=== PATIENT | female | born 1980 | race Caucasian/White ===

== ENCOUNTER → 2017-12-26 08:22 | Outpatient (CLI) | payer BC, SELFPAY ==
--- NOTE | 2017-12-26 08:25 | NM_ITS ---
CLINICAL: 37-year-old female with reported history of diffuse arthralgia. WHOLE BODY 99m Tc MDP RADIONUCLIDE BONE SCINTIGRAPHY COMPARISON: MRI of the lumbar spine report 05/06/2017 FINDINGS: Following the intravenous administration of 23.7 mCi of 99m Tc MDP, whole body bone images reveal: 1. Increased radiopharmaceutical concentration is identified in the bilateral distal femoral and proximal tibial metaphyses. 2. An increase in tracer concentration is demonstrated in the bilateral wrist articulations, left midfoot in the distribution of the third cuneiform tarsal bone, the acromioclavicular compartments of both shoulders, first lumbar vertebra posteriorly on the left, posterior midline sacrum, medial compartment of the right ankle. 3. The remaining skeletal structures are scintigraphically unremarkable with the bilateral renal images and urinary bladder activity identified. NM/Bone Scan Whole Body IMPRESSION: 1. The increase in radiopharmaceutical concentration identified in the bilateral distal femoral and proximal tibial metaphyses may be further investigated with plain film radiography if a myeloproliferative disorder is a diagnostic consideration. 2. Degenerative arthritis is otherwise expressed in the right and left wrists, left midfoot, bilateral shoulders, lumbar spine and sacrum, the right ankle articulation. 3. There is no definitive scintigraphic evidence of large articulation synovial inflammation or trauma-fracture on the current examination. Electronically Signed: Fernando Carson DO at 10:28 EDT Tel , Service support ,
== END ==
PROVIDERS: Family Provider Family Medicine; PCP Family Medicine; Visit Provider Internal Medicine Rheumatology
DX: M89.8X9 Other specified disorders of bone, unspecified site (principal)
CPT/HCPCS: 78306

== ENCOUNTER → 2017-12-27 10:24 | Outpatient (CLI) | payer BC, SELFPAY ==
[2017-12-27 12:12] LABS: Absolute Lymphocyte Count 1.94 X10^3/ul (0.83-4.51); Absolute Neutrophil Count 5.5 X10^3/uL (2.0-7.7); Basophil# 0.01 X10^3/uL; Basophil% 0.1 % (0-1); Eosinophil# 0.17 X10^3/uL; Eosinophils% 2.1 % (0-5); Hematocrit 38.2 % (37-47); Hemoglobin 11.9 g/dl (12.0-15.0); Lymphocyte # 1.94 X10^3/ul (4.0); Lymphocyte % 23.9 % (19-41); Mean Corp Hgb Conc 31.2 g/gl (32-36); Mean Corpuscular Hgb 24.8 pg (27.0-32.0); Mean Corpuscular Volume 79.7 fL (81-99); Mean Platelet Vol. 10.8 fl (6.2-12.0); Monocyte# 0.42 X10^3/uL; Monocyte% 5.2 % (0-10); Neutrophil # 5.53 X10^3/uL (2.7-7.7); Neutrophil % 68.2 % (47-70); Platelet Count 293 K/mm3 (150-450); RBC Distribution Width CV 16.2 % (11.6-14.6); Red Blood Count 4.79 M/mm3 (4.2-5.4); White Blood Count 8.1 K/mm3 (4.4-11.0)
[2017-12-27 12:13] LABS: POSITIVE COUNT NO; POSITIVE DIFFERENTIAL NO; POSITIVE MORPHOLOGY NO
[2017-12-27 12:19] LABS: Iron 37 ug/dL (50-170)
== END ==
PROVIDERS: Family Provider Family Medicine; PCP Family Medicine; Visit Provider Family Medicine
DX: D64.9 Anemia, unspecified (principal); E61.1 Iron deficiency
CPT/HCPCS: 36415; 83540; 85025

== ENCOUNTER → 2017-12-28 12:43 | Outpatient (CLI) | payer BC, SELFPAY ==
--- NOTE | 2017-12-28 12:58 | MRI_ITS ---
STUDY: MRI RIGHT HIP REASON FOR EXAM: Female, 37 years old. Pain TECHNIQUE: Standardized fat and water weighted pulse sequences were obtained in all 3 orthogonal planes. COMPARISON: X-ray 10/19/2017 FINDINGS: There is mild edema at the gluteus medius insertion (image 14, 15/28 coronal inversion recovery, 25, 26/36 axial inversion recovery). Normal hip joint without articular joint space narrowing. Normal acetabulum. Normal labrum. Normal femoral head. Normal femoral neck and intratrochanteric region. There is no trochanteric, iliopsoas or iliopectineal bursitis. Normal superior and inferior pubic rami. Normal pubic symphysis. Normal ischial tuberosity. Normal origin of the hamstring tendons. Normal visualized iliac wing, sacroiliac joint, and sacral ala. Normal visualized soft tissue structures of the pelvis. MRI/Lower Ext Joint Only (Routine) IMPRESSION: Mild insertional gluteus medius myotendinous strain Electronically Signed: Arnulfo Lambert MD at 21:53 EDT Tel , Service support ,
== END ==
PROVIDERS: Family Provider Family Medicine; PCP Family Medicine; Visit Provider Nurse Practitioner Family
DX: M25.559 Pain in unspecified hip (principal); M70.70 Other bursitis of hip, unspecified hip; M53.3 Sacrococcygeal disorders, not elsewhere classified
CPT/HCPCS: 73721

== ENCOUNTER → 2018-01-04 13:12 | Outpatient (CLI) | payer BC, SELFPAY ==
--- NOTE | 2018-01-04 13:18 | RAD_ITS ---
STUDY: X-RAY - RIGHT ELBOW REASON FOR EXAM: Female, 37 years old. Pain TECHNIQUE: 3 view(s) of the elbow. COMPARISON: None. FINDINGS: Normal visualized humerus, radius and ulna. Normal radiocapitellar and ulnotrochlear articulations. The soft tissue structures are unremarkable. A small ossific density measuring less than 2 mm noted just distal to the humerus on the oblique view only. RAD/Elbow min 3 Views IMPRESSION: No acute bony injury of the elbow. Electronically Signed: Justyn Rosas DO at 23:58 EDT Tel [phone], Service support ,
== END ==
PROVIDERS: Family Provider Family Medicine; PCP Family Medicine; Visit Provider Family Medicine
DX: M25.521 Pain in right elbow (principal)
CPT/HCPCS: 73080

== ENCOUNTER → 2018-01-30 08:54 | Outpatient (CLI) | payer BC, SELFPAY ==
--- NOTE | 2018-01-30 08:57 | RAD_ITS ---
STUDY: X-RAY - RIGHT KNEE REASON FOR EXAM: Female, 37 years old. Right knee pain TECHNIQUE: 2 view(s) of the knee. Weight bearing COMPARISON: None. FINDINGS: Normal visualized distal femur. Normal visualized proximal tibia and fibula. Normal proximal tibiofibular articulation. There is mild degenerative arthrosis of the medial femorotibial compartment. There is mild degenerative arthrosis of the lateral femorotibial compartment. There is mild degenerative arthrosis of the patellofemoral articulation. There is no demonstrated joint effusion. No significant joint space height loss The soft tissue structures are unremarkable. RAD/Knee 1 or 2 Views IMPRESSION: Mild degenerative changes Electronically Signed: Eric Carroll DO at 18:23 EDT Tel , Service support ,
--- NOTE | 2018-01-30 09:00 | RAD_ITS ---
STUDY: X-RAY - LEFT KNEE REASON FOR EXAM: Female, 37 years old. Left knee pain TECHNIQUE: 2 view(s) of the knee. Weight-bearing COMPARISON: None. FINDINGS: Normal visualized distal femur. Normal visualized proximal tibia and fibula. Normal proximal tibiofibular articulation. Normal medial femorotibial compartment. There is mild degenerative arthrosis of the lateral femorotibial compartment. There is mild degenerative arthrosis of the patellofemoral articulation. There is no demonstrated joint effusion. No significant joint space height loss The soft tissue structures are unremarkable. RAD/Knee 1 or 2 Views IMPRESSION: Mild degenerative changes Electronically Signed: Eric Carroll DO at 18:23 EDT Tel , Service support ,
== END ==
PROVIDERS: Family Provider Family Medicine; PCP Family Medicine; Visit Provider Internal Medicine Rheumatology
DX: M25.561 Pain in right knee (principal); M25.562 Pain in left knee
CPT/HCPCS: 73560

== ENCOUNTER → 2018-04-06 10:24 | Outpatient (CLI) | payer BC, SELFPAY ==
--- NOTE | 2018-04-06 10:36 | CT_ITS ---
STUDY: CT ABDOMEN AND PELVIS WITHOUT CONTRAST REASON FOR EXAM: Female, 37 years old. 2 day history of low back pain. RADIATION DOSAGE (If Supplied By Facility): CTDIvol = ( 14.80 ) mGy, DLP = ( 811.15 ) mGycm TECHNIQUE: Transaxial images were obtained from the dome of the diaphragm to the symphysis pubis without oral contrast, and without intravenous contrast. Sagittal and coronal images were reconstructed. Individualized dose optimization techniques were used for this CT. COMPARISON: Comparison is made with prior study dated January 31, 2017. FINDINGS: The visualized lung bases are unremarkable. Coronary artery calcification. Normal liver. There are surgical clips in the gallbladder fossa consistent with a prior cholecystectomy. Normal spleen. Normal pancreas. Normal bilateral adrenal glands. 2.5 mm calculus in the lower pole of the left kidney. There is moderate cortical atrophy of the left kidney, consistent with chronic medical renal disease. Normal visualized stomach. Normal small intestine. Normal colon. The appendix is visualized and appears normal. Normal abdominal aorta. Normal inferior vena cava. Normal retroperitoneum. Normal urinary bladder. There is a 3.3 cm cyst in the left ovary. The patient is status post hysterectomy. Normal abdominal wall. There are degenerative changes of the visualized lumbar spine. CT/Abdomen/Pelvis without Cont IMPRESSION: 2.5 mm calculus in the lower pole of the right kidney. Left ovarian cyst. Electronically Signed: Nile Cm MD at 11:09 EDT Tel [phone], Service support ,
== END ==
PROVIDERS: Family Provider Family Medicine; PCP Family Medicine; Visit Provider Urology
DX: N20.0 Calculus of kidney (principal); M54.5 Low back pain
CPT/HCPCS: 74176

== ENCOUNTER 2018-04-12 18:56 | Emergency (ER) | payer BC, SELFPAY ==
[2018-04-12 18:57] VITALS: BP 145/93; PULSE 100; RESP 16; TEMP 36.8; O2SAT 98; BMI 44.4
[2018-04-12] MEDS: Ondansetron ODT 4 MG Tablet 8 MG PO (19:39)
[2018-04-12] MEDS: Ketorolac 30 MG/ML Syringe IM (19:39)
--- NOTE | 2018-04-12 21:09 | ED.VISSUMM ---
- ER Visit Summary Date of Service: 04/12/18 Chief Complaint: Migraine headache and dizziness History of Present Illness: The patient is a 37 F presenting for evaluation secondary to migraine headache and sinus. Patient reports that over the course last 3 days she has been dealing with dizziness. She reports that this is associated with change in position and as a feeling that she has a spinning sensation. She denies any visual changes speech difficulty numbness or weakness. She denies any recent head injuries or fever. She denies any tinnitus or recent dental work. Patient states that she has a prior history of migraines, but has not had one for 3 years since she had her hysterectomy but seemed to develop a gradual onset 1 today. States that associated with visual auras photophobia and phonophobia. Review of systems otherwise negative. Physical Examination: Vital signs: Within normal limits General: Well-nourished well-developed no acute distress Head: Normocephalic atraumatic, no temporal artery tenderness or vesicular rash noted. No sinus tenderness to percussion. Eyes: PERRLA, EOMI. Direct funduscopy shows no evidence of hemorrhage or papilledema. There is evidence of nystagmus when the patient goes from lying to sitting upright Neck: Supple, no lymphadenopathy, no JVD no meningismus. Negative Brudzinski, Kernig, jolt, and heel strike Cardiovascular: Heart regular rate and rhythm no murmurs Respiratory: Lung sounds clear to auscultation bilaterally no respiratory distress Abdomen: Soft, nontender Extremities: Nontender, no edema Skin: Normal color, no rash, no evidence of petechia Neuro: Alert and oriented ?4, cranial nerves II through XII intact, normal strength, sensation Test Results: None indicated Emergency Department Course and Treatment: Patient presented secondary to dizziness and headache. Patient's headache was treated with Toradol and Zofran and had resolution on repeat evaluation. Patient's dizziness was treated with meclizine. This seems to be consistent with peripheral vertigo as it is very clearly positional and associated with nystagmus. Patient will be sent home with a course of meclizine and follow-up with ear nose and throat as needed. All questions were answered and patient was discharged. Disposition: Discharge Impression: 1. Migraine headache 2. BPPV This note was generated with [employer] software. It may contain incorrect words, spelling, and punctuation that were not noted in review of the chart prior to signing ED Disposition - Plan for ED Patient: Disposition: Home or Assisted Living Chief Complaint: Dizziness Diagnosis: Vertigo, Migraine Instructions: ED BPV Vertigo Prescriptions: Meclizine HCl 25 mg PO TID PRN #15 tab PRN Reason: Dizziness Referrals: Partha Morrissey MD [STAFF PHYSICIAN] - 3-5 Days if not improving
[2018-04-12] MEDS: Meclizine HCl 25 MG Tablet PO (21:10)
[2018-04-12 21:26] VITALS: BP 130/95; PULSE 71; RESP 16; O2SAT 99
== END 2018-04-12 21:28 | disposition home or self-care (01) ==
PROVIDERS: Emergency Provider Emergency Medicine; Family Provider Family Medicine; PCP Family Medicine
DX: G43.909 Migraine, unspecified, not intractable, without status migrainosus (principal); H81.10 Benign paroxysmal vertigo, unspecified ear; Z90.710 Acquired absence of both cervix and uterus; F41.9 Anxiety disorder, unspecified; D68.51 Activated protein C resistance; K21.9 Gastro-esophageal reflux disease without esophagitis
CPT/HCPCS: 96372; 99283

== ENCOUNTER → 2018-05-21 11:17 | Outpatient (CLI) | payer BC, SELFPAY ==
[2018-05-21 15:26] LABS: Absolute Lymphocyte Count 2.22 X10^3/ul (0.83-4.51); Absolute Neutrophil Count 6.3 X10^3/uL (2.0-7.7); Basophil# 0.02 X10^3/uL; Basophil% 0.2 % (0-1); Eosinophil# 0.34 X10^3/uL; Eosinophils% 3.6 % (0-5); Hemoglobin 11.8 g/dl (12.0-15.0); Lymphocyte # 2.22 X10^3/ul (4.0); Lymphocyte % 23.8 % (19-41); Mean Corp Hgb Conc 31.1 g/gl (32-36); Mean Corpuscular Hgb 25.2 pg (27.0-32.0); Monocyte# 0.41 X10^3/uL; Monocyte% 4.4 % (0-10); Neutrophil # 6.31 X10^3/uL (2.7-7.7); Neutrophil % 67.8 % (47-70); Platelet Count 299 K/mm3 (150-450); RBC Distribution Width CV 15.8 % (11.6-14.6); RBC Distribution Width SD 46.1 fl (35.1-43.9); Red Blood Count 4.69 M/mm3 (4.2-5.4); White Blood Count 9.3 K/mm3 (4.4-11.0)
[2018-05-21 15:41] LABS: POSITIVE COUNT NO; POSITIVE DIFFERENTIAL NO; POSITIVE MORPHOLOGY NO
[2018-05-21 15:52] LABS: ALB/GLOB Ratio 0.7 RATIO (0.9-2.4); AST(SGOT) 14 U/L (15-37); Alanine Aminotransfer ALT/SGPT 26 U/L (13-56); Albumin, Serum 3.1 g/dL (3.2-5.0); Alkaline Phosphatase 92 U/L (45-117); Anion Gap 8 (5-15); BUN 11 mg/dL (7-18); BUN/Creat Ratio 11.1 RATIO (10-20); Calcium,Total 8.7 mg/dL (8.5-10.1); Chloride 108 mmol/L (98-107); Creatinine, Serum 0.99 mg/dL (0.55-1.02); EST Glomerular Filtration Rate 66 mL/min (>60); Est Glom Filt Rate - Afr Amer 80 mL/min (>60); Globulin 4.5 g/dL (2.2-4.2); Glucose 88 mg/dL (74-106); Protein, Total 7.6 g/dL (6.4-8.2); Sodium Level 139 mmol/L (136-145)
== END ==
PROVIDERS: Family Provider Family Medicine; PCP Family Medicine; Visit Provider Family Medicine
DX: Z01.818 Encounter for other preprocedural examination (principal); D50.9 Iron deficiency anemia, unspecified
CPT/HCPCS: 36415; 80053; 85025

== ENCOUNTER → 2018-05-22 13:14 | Outpatient (CLI) | payer BC, SELFPAY ==
[2018-05-22 15:57] LABS: Calcium,Total 8.9 mg/dL (8.5-10.1); Potassium 3.4 mmol/L (3.5-5.1)
== END ==
PROVIDERS: Family Provider Family Medicine; PCP Family Medicine; Visit Provider Urology
DX: N20.0 Calculus of kidney (principal)
CPT/HCPCS: 36415; 82310; 84132

== ENCOUNTER 2018-06-08 08:05 | Day surgery (SDC) | payer BC, SELFPAY ==
--- NOTE | 2018-06-08 | MASS_PTH ---
PATIENT: YVES SKINNER [place] [facility] [place][id number] AGE/SX: 37/F ROOM: RE06/08/[address]: Dr. Mason Valencia DPM : 1980 BED: DIS: 06/08/2018 SPEC #: [id number] RECD: 06/08/18 14:24 STATUS: MARIELLA AMENA #: [id number] DAVID: 06/08/18 00:[address]: Mason Valencia DEPT: SURGICAL PATHOLOGY RECD BY: Gian Grajeda ENTERED: 06/08/18 14:25 SP TYPE: Mass OTHR DR: Dr. Sujey Shaikh, DO Tissues: Foot, NOS Procedures: Surgery Specimen Level III HEADER OPERATION: Tarsal tunnel decompression, excision cyst/soft tissue mass, plantar PRE-OP DIAGNOSIS: Right tarsal tunnel syndrome and plantar fascitis TISSUE SUBMITTED: Mass and debrided tissue, right tarsal tunnel MICROSCOPIC DIAGNOSIS Mass and debrided tissue, right tarsal tunnel: Fragments of fibroadipose and fibrovascular tissue with focal reactive changes. YEVGENIY:michaela 06/11/18 MICROSCOPIC DESCRIPTION Slides are reviewed. GROSS DESCRIPTION Received in fixative is one container labeled with the patient's name and designated mass and debrided tissue, right tarsal tunnel. The specimen consists of multiple irregular fragments of sanchez-yellow adipose tissue mixed with possible fragment of skin that in aggregate measure 2.5 x 2.5 x 0.2 cm. The entire specimen is submitted in one cassette. / YEVGENIY:michaela 06/08/18 TC:5 CPT: 45682
[2018-06-08 08:35] VITALS: BP 119/73; PULSE 78; RESP 16; TEMP 36.3; O2SAT 96; BMI 44.7
[2018-06-08] MEDS: Bupivacaine Mpf 0.5% 30 ML VIAL ×2 (10:16→11:39)
--- NOTE | 2018-06-08 11:47 | PCM.DC.POD ---
Discharge Diet: Light diet - advance as tolerated Discharge Activity: May Not Drive Weight Bearing Status: No weight bearing - No weightbearing right foot Keep extremity elevated above heart level: Right Leg - Keep right foot elevated for at least 50 minutes of every hour using pillows Call your doctor if your incision/area has: Continuous Slow Oozing, Sudden Increased Bleeding, Foul Smelling Discharge Call your doctor if you observe: Fever of 101 or Higher, Shortness of breath, Chest pain, Increased palpitations (irregular heartbeat), Calf discomfort, Uncontrolled pain Cleanse incision/area with: Do not get Incision Wet, Keep Dressing Clean & Dry Additional Instructions: Inject Lovenox subcutaneously daily as already prescribed. Allergies/Adverse Reactions: Allergies acetaminophen [From Midrin] Allergy (Verified 06/08/18 08:31) Chest tightness ciprofloxacin [From Cipro] Allergy (Verified 06/08/18 08:31) Hives ciprofloxacin HCl [From Cipro] Allergy (Verified 06/08/18 08:31) Hives dichloralphenazone [From Midrin] Allergy (Verified 06/08/18 08:31) Chest tightness isometheptene mucate [From Midrin] Allergy (Verified 06/08/18 08:31) Chest tightness nortriptyline [Nortriptyline] Allergy (Verified 06/08/18 08:31) Chest tightness Medications to take at Discharge Calcium Carb/Vitamin D [Caltrate-600 With Vit D Tab] 1 tab PO DAILY@0800 03/11/14 Folic Acid 0.4 mg PO DAILY@0800 14 Metformin(XR) [Glucophage Xr] 1,000 mg PO BID 03/11/14 Multivitamins,Therapeutic [Multivitamin] 1 tab PO DAILY 03/11/14 Ranitidine [Zantac] 300 mg PO BID 03/11/14 Diclofenac Epolamine [Flector] 1 patch TOPICAL PRN PRN 04/12/18 Hyoscyamine Sulfate [Hyoscyamine Sulfate ER] 1 tab PO DAILY 04/12/18 Lorazepam [Ativan] 1 tab PO DAILY PRN 04/12/18 Montelukast Sodium [Singulair] 4 mg PO DAILY 04/12/18 Pantoprazole Sodium [Protonix] 40 mg PO DAILY 04/12/18 Sertraline HCl [Zoloft] 50 mg PO DAILY 04/12/18 Topiramate [Topamax] 1 tab PO DAILY 04/12/18 ascorbic acid (vitamin C) 500 mg capsule 500 mg PO DAILY 05/14/18 mecobalamin (vitamin B12) 1,000 mcg disintegrating tablet,sublingual 1,000 mcg SUBLINGUAL QDAY 05/14/18 omega-3 fatty acids-fish oil 300 mg-1,000 mg capsule 1 cap PO BID 05/14/18 Hydrocodone/Acetaminophen [Vicodin 5-300 mg Tablet] 1 - 2 tab PO Q6H PRN PRN 3 Days #30 tab 06/08/18 The following prescriptions were given: Hydrocodone/Acetaminophen [Vicodin 5-300 mg Tablet] 1 - 2 tab PO Q6H PRN PRN 3 Days #30 tab PRN Reason: Pain Primary Care Physician: Sujey Shaikh DO [Primary Care Provider] - Test Results: Test results from this visit will be discussed in further detail at your follow-up appointment, if applicable. Please Follow Up With: Mason Valencia DPM When: within 1 week, sooner if needed
--- NOTE | 2018-06-08 11:52 | PCM.OPRPT ---
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 Onofre Blankenship Type of Anesthesia:: General, Local Specimen's removed: Mass from tarsal tunnel sent to pathology Estimated Blood Loss (mL): 20mL Description of Procedure: Indications: This is a 37 year old female who has continued pain and symptoms to the right foot. She has pain to the tarsal tunnel with numbness to the bottom of the foot. She also has plantar fascia symptoms. Pre operative MRI showed cystic mass vs varicose veins along with plantar fasciitis. This persists despite rest, activity modifications, immobilization, anti-inflammatories, changes in shoegear, and corticosteroid injection. She continues to have significant pain and symptoms. Therefore further options were discussed with her. She elected to proceed forward with surgical intervention tarsal tunnel release decompression with excision of mass, along with plantar fasciotomy. This was discussed with them in great detail, reviewed the procedures with her in detail, reviewed the rationale, possible benefits, risks/potential complications, goals, expectations, estimated healing time all in great detail. Patient expressed understanding, and elected to proceed forward with the procedures. The consent forms were reviewed with her, and this was freely signed. All of her questions were answered. No guarantees were given nor implied. Operative Procedure: The patient was brought back into the operating room and was placed on the operating room in the supine position. She was carefully secured to the operating room table in the supine position. The patient received 2 grams of IV Cefazolin for antibiotic prophylaxis. The initally received MAC anesthesia per the anesthesia team. Then a total of 30mL of 0.5% Bupivicaine was given as a local block to the tarsal tunnel and medial hindfoot after the overlying skin was cleansed with 70% isopropyl alcohol. A well padded pneumatic tourniquet was applied around the patient's right low calf. The patient's right lower extremity was scrubbed, prepped, draped in the usual aseptic fashion. A timeout was performed and the patient was properly identified and the surgical plan was confirmed. The patient's right foot/ankle was exsanguinated using an Esmarch bandage and was elevated; the right ankle pneumatic tourniquet was inflated to 250mmHg. Using a #15 scalpel blade a curvilinear incision was made overlying the tarsal tunnel. The patient had pain despite the MAC/IV sedation and local anesthesia, therefore the patient received general anesthesia per the anesthesia team. The ankle pneumatic tourniquet was deflated (was only up for 2 minutes) until general anesthesia was obtained. Once general anesthesia was obtained, the patient's right foot/ankle was again exsanguinated using an Esmarch bandage and was elevated; the right ankle pneumatic tourniquet was inflated to 250mmHg Careful dissection was completed down to the flexor retinaculum, which was identified and was released, exposing the tarsal tunnel. Careful dissection was completed down to the tibial nerve. The tibial nerve was visualized, along with its branches of the medial and lateral plantar nerves and medial calcaneal nerve, in which it was noted these branches occurred at the central to distal aspect of the tarsal tunnel. It was noted there were significant adhesions around the tibial nerve as well as to the aforementioned branches at the level of the tarsal tunnel, these were identified and carefully released. There was noted to a large varicose vein (branch off of the posterior tibial vein) impinging on the tibial nerve at the central aspect of the tarsal tunnel. This varicose was carefully cauterized and removed. There was also noted to be a soft tissue mass cyst, consistent with a ganglion cyst, deep within the tarsal tunnel. There was clear gel fluid within the cyst. The cyst was excised, it appeared to be coming from the medial subtalar joint. Also of note, at the level of the central aspect of the tarsal tunnel the tibial nerve appeared significantly enlarged, yellow with a significant amount of fatty nonviable tissue around it, the tibial nerve appeared to be quite inflamed at this level. The posterior artery and vein were coursing over the top of the tibial nerve. This were freed up, being sure not to injure the, nerve, artery, or vein. The fatty tissue around the tibial nerve and branches was very carefully and gently freed away from the tibial nerve and branched; and was removed. The underlying nerve appeared much healthier in appearance, but again did appear to be inflamed due to chronic impingement and irritation from the above. Otherwise at the level of the proximal tarsal tunnel the tibial nerve appeared to be healthy and viable. The surgical site was flushed out with copious amounts of normal saline solution. The rest of the tissues at the surgical site appeared healthy and viable. The flexor retinaculum was not reapproximated together to help prevent further impingement/entrapment of the tibial nerve and associated branches. Of note, the removed tissue (including the cyst) was all sent to pathology for further evaluation. Attention was directed to the plantar fascia. A skin incision was made to the medial hindfoot at the level of the origin of the plantar fascia on the inferior calcaneus. Careful dissection was completed down through the subcutaneous tissue layer. A plane was created superiorly and inferiorly around the plantar fascia. There was significant thickening and fibrosis of the plantar fascia consistent with plantar fasciitis. The medial 50% of the plantar fascia was released via a plantar fasciotomy. There was no noted infracalcaneal spur, confirmed using intraoperative fluoroscopy. The site was flushed out with copious amounts of normal saline solution. The pneumatic tourniquet was deflated (total time tourniquet was inflated was 57 minutes), there was immediate return of warmth and perfusion to the lower extremity. Temperature was noted, with CFT < 2 seconds to all toes. Hemostasis was achieved prior to closure. The subcutaneous tissue and skin were reapproximated using 4-0 Monocryl. An additional 10mL of local nerve block was completed around the surgical site for post operative pain control using 0.5% Bupivacaine plain to aid with post operative pain control.The skin incision edges were painted with Cavilon, and Steri-strips were applied across the sutured skin incision site of the tarsal tunnel. A dressing was applied which consisted of Betadine soaked Adaptic, 4x4 gauze, Kerlix and lucie bandage. The patient tolerated the above operative procedures well, and the anesthesia well with no complications. Post operative orders were placed. Post operative instructions were reviewed with patient as well as with her family ( and mother) who were here with her today. Patient to remain nonweightbearing to the right foot/ankle at all times, keep the right foot elevated at least 50 minutes of every hour, keep dressing/splint clean, dry and intact. A prescription for Vicodin 5mg/300mg tabs; 1-2 tabs PO q 6 hours PRN pain was given for post operative pain control (confirmed with patient she is not allergic to acetaminophen). Also the patient has been prescribed Lovenox 30mg once daily subcutaneous due to her risk of blood clot, this was reviewed with Dr. Shaikh her PCP. The patient to follow up with me in 1 week, sooner if needed. Grafts/Implants Used: None - Complications None
[2018-06-08 11:55] VITALS: BP 119/73; BP 140/67; PULSE 82; RESP 16; TEMP 36.2; O2SAT 93
[2018-06-08 12:00] VITALS: BP 119/73; BP 127/77; PULSE 82; RESP 18; O2SAT 94
[2018-06-08 12:15] VITALS: BP 119/73; BP 120/83; PULSE 94; RESP 16; O2SAT 95
[2018-06-08 12:30] VITALS: BP 119/73; BP 123/76; PULSE 89; RESP 16; TEMP 36.3; O2SAT 94
[2018-06-08 14:43] VITALS: BP 116/68; BP 119/73; PULSE 80; RESP 16; TEMP 36.1; O2SAT 100
== END 2018-06-08 14:54 | disposition home or self-care (01) ==
LOC: SDC 08:06 → AC 08:07
PROVIDERS: Family Provider Family Medicine; PCP Family Medicine; Visit Provider Podiatrist
PROC: (CPT 28008; principal; 2018-06-08 09:15)
DX: G57.51 Tarsal tunnel syndrome, right lower limb (principal); M67.471 Ganglion, right ankle and foot; M72.2 Plantar fascial fibromatosis; F41.1 Generalized anxiety disorder; D68.8 Other specified coagulation defects; K21.9 Gastro-esophageal reflux disease without esophagitis; D50.9 Iron deficiency anemia, unspecified; D68.51 Activated protein C resistance; E28.2 Polycystic ovarian syndrome; E66.9 Obesity, unspecified; Z68.42 Body mass index [BMI] 45.0-49.9, adult; Z87.442 Personal history of urinary calculi; Z87.440 Personal history of urinary (tract) infections; Z79.84 Long term (current) use of oral hypoglycemic drugs; Z79.899 Other long term (current) drug therapy
CPT/HCPCS: 28008; 28035; 28090; 88304; 88305; J7120; J2405

== ENCOUNTER 2018-08-14 10:00 | Outpatient (RCR) | payer BC, SELFPAY ==
--- NOTE | 2018-07-04 11:32 | HP.PTEVAL ---
Patient's Visit Information YEVS SKINNER is a 37 year old F referred to Physical Therapy by Mason Valencia with a diagnosis of R s/p tarsal tunnel decompression and plantar fasciotomy.. Date of Evaluation: 07/04/18 Physical Therapist: Partha Delgado, DPT, OC - Visit Plan Frequency: 1-2x /Week Duration: 4-6 Weeks Plan: PT is WBAT in boot until 07/20/18. Currently weaning crutches. Weekly progressions of gait, ROM and strength and proprioception exercises, increase frequency if not going well at home. Scar massage - Subjective Subjective: 06/08 had decompression tarsal tunnel. In soft dressing NWB R since until one week ago when she got boot and started gentle WB. Feels like she is putting 50% weight through it. Pain is minimal, to 3/10 burning intermittently with excessive WB. Sleeps well. Has children 10 adn 13 [address] yet. 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 Activities are limited due to limited WB, can't walk [employer], limited cooking and cleaning. Enjoys swimming for fitness but can't yet. Enjoys hiking with kids, riding bike. Prior to surgery had pain excruciating every step, much better now and had numbness causing her to fall. HEP: just alphabet with toe and wearing boot. - Pain R ankle/foot Pain Intensity (Out of 10): 2 Pain Intensity Range: 0, 3 - Objective Walks with one crutch L, two crutches and without crutches with boot on and obvious limited ROM due to boot eficits but all mod I. Steps are reciprocal with two rails or crutched Mod I, prefers to use L. tRASNFERS ARE i. R foot AROM is limited DF to 4 degrees, PF to 50, inv to 23, eversion to 10. L foot DF 9, PF 60, inversion 38, eversion 20. Strength R ankle 4-/5 without pain and L 4+. Metatarsals and big toe move well. Incisions are medial at ankle and heel and are dry but not completely closed yet, mod scar tissue uner medial malleoli. palpable. SLS R in boot 5 seconds and L is 30 seconds. - Goals Goal 1:: Walk without boot with normal pattern as allowed by doctor Goal Time Frame: 4-6 Weeks Goal 2:: Steps reciprocal without pain or rail Goal Time Frame: 4-6 Weeks Goal 3:: Pt feel back to 95% of all activites without pain. Goal Time Frame: 4-6 Weeks Goal 4:: I approp HEP to minimize future problems Goal Time Frame: 4-6 Weeks - Rehabilitation Potential Physical Therapy Diagnosis: s/p R ankle surgery Rehabilitation Potential: Good - Anticipated Interventions Patient/Client Instruction: Educate patient on: Condition, Plan of Care For the Purpose of:: To improve ability of physical actions for home/community/work/leisure, To improve gait and locomotor functions Therapeutic Exercise to Include: Strength training, Gait and locomotor training, Passive ROM, Active ROM For the Purpose of:: To increase ROM, To increase tolerance to activity/condition/position, To improve ability of physical actions for home/community/work/leisure, To improve gait and locomotor functions Manual Therapy Techniques to Include: Scar massage For the Purpose of:: To increase ROM Thank you for the opportunity to evaluate your patient. For Medicare and Medicare HMO plans, please review the plan of care and approve it. It will need to be FAXED BACK to us at [phone] for Medicare purposes. Please let me know if there are questions or concerns regarding this plan of care. Physician Signature: Date:
--- NOTE | 2018-07-31 10:30 | HP.PTREVAL ---
Mason Valencia, It has been my pleasure to treat YVES SKINNER over the last 5 visits for R s/p tarsal tunnel decompression and plantar fasciotomy.. Please see the progress note below for an update on the physical therapy plan of care! Subjective: To doctor on 08/09. Going good last couple days. Did wake up last night with some pain. Doing 2 hours at a time off. Pain is good llast couple days , no meds. Using GTB for exercises 3x15 easily. ^ hours out of boot. Walkede dog a block this week without difficulty a short block Objective/Function: Full aROM, incision not tender and min scar tissue. 5/5 strength B ankles, SLS B 5 seconds max. OVERALL DOING WELL Plan Plan: F/U TWO WEEKS TO D/C, CALL PRIOR IF NEEDED. Goals Goal 1:: Walk without boot with normal pattern as allowed by doctor Goal Time Frame: 4-6 Weeks Goal 2:: Steps reciprocal without pain or rail Goal Time Frame: 4-6 Weeks Goal 3:: Pt feel back to 95% of all activites without pain. Goal Time Frame: 4-6 Weeks Goal 4:: I approp HEP to minimize future problems Goal Time Frame: 4-6 Weeks Anticipated Interventions Patient/Client Instruction: Educate patient on: Condition, Plan of Care For the Purpose of:: To improve ability of physical actions for home/community/work/leisure, To improve gait and locomotor functions Therapeutic Exercise to Include: Strength training, Gait and locomotor training, Passive ROM, Active ROM For the Purpose of:: To increase ROM, To increase tolerance to activity/condition/position, To improve ability of physical actions for home/community/work/leisure, To improve gait and locomotor functions Manual Therapy Techniques to Include: Scar massage For the Purpose of:: To increase ROM Please do not hesitate to contact me at [phone] by phone or if you have questions or concerns regarding this new plan of care! Sincerely, Partha Delgado, DPT, OC
--- NOTE | 2018-08-14 10:22 | HP.PTDCSUM ---
HP - PT D/C Summary It has been my pleasure to treat YVES SKINNER under orders from Mason Valencia, for the diagnosis of R s/p tarsal tunnel decompression and plantar fasciotomy. for a total of 6 visit(s). Discharge Date: 08/14/18 Please see the following information for a summary of their discharge status. - Subjective Subjective: Back and knee hurt. Foot is doing well. Out of boot for about a week. Used in in afternoon for work one time but wrapping the ankle worked better. Walking a mile without much difficulty aftrrwards. Has small spot on incision that throbs at times. To Dr. Valencia today. Sleeping OK. Walks dog without problems. Work is normal. - Pain R ankle/foot Pain Intensity (Out of 10): 0 - Overall Improvement % Improvement: 90 - Objective Objective/Function: Full aROM withpout pain R ankle. 8 DF, 38 inv, 28 eversion. 5/5 strength R ankle all 4 motions. Walks wella dn steps normal except R knee pain. DOING EXCEELENT AND READY TO BE DONE WITH PT - Goals Goal 1:: Walk without boot with normal pattern as allowed by doctor Goal Progress: Goal Met Goal 2:: Steps reciprocal without pain or rail Goal Progress: Goal Met Goal 3:: Pt feel back to 95% of all activites without pain. Goal Progress: Progressing Goal 4:: I approp HEP to minimize future problems Goal Progress: Goal Met - Plan Plan: D/C, pt to start back on water exercise in community. - D/C Information Discharge Comments: Doing well. If there are questions or concerns regarding this patient's physical therapy, please feel free to call me at [phone]. Thank you for the referral of this patient. Sincerely, Partha Delgado, DPT, OC
== END 2018-08-14 19:00 | disposition home or self-care (01) ==
LOC: PT 10:00
PROVIDERS: Family Provider Family Medicine; PCP Family Medicine; Referring Provider Podiatrist; Visit Provider Podiatrist
DX: Z98.890 Other specified postprocedural states (principal)
CPT/HCPCS: 97110; 97162; 97530

== ENCOUNTER → 2018-09-05 14:45 | Outpatient (CLI) | payer BC, SELFPAY ==
[2018-09-05 17:33] LABS: Absolute Lymphocyte Count 2.23 X10^3/ul (0.83-4.51); Absolute Neutrophil Count 6.3 X10^3/uL (2.0-7.7); Basophil# 0.01 X10^3/uL; Basophil% 0.1 % (0-1); Eosinophil# 0.21 X10^3/uL; Eosinophils% 2.3 % (0-5); Hemoglobin 11.9 g/dl (12.0-15.0); Lymphocyte # 2.23 X10^3/ul (4.0); Lymphocyte % 24.2 % (19-41); Mean Corp Hgb Conc 31.3 g/gl (32-36); Mean Corpuscular Hgb 24.5 pg (27.0-32.0); Mean Corpuscular Volume 78.2 fL (81-99); Mean Platelet Vol. 10.3 fl (6.2-12.0); Monocyte# 0.43 X10^3/uL; Monocyte% 4.7 % (0-10); Neutrophil # 6.28 X10^3/uL (2.7-7.7); Neutrophil % 68.3 % (47-70); Platelet Count 311 K/mm3 (150-450); RBC Distribution Width CV 15.6 % (11.6-14.6); RBC Distribution Width SD 44.6 fl (35.1-43.9); Red Blood Count 4.86 M/mm3 (4.2-5.4); White Blood Count 9.2 K/mm3 (4.4-11.0)
[2018-09-05 17:41] LABS: POSITIVE COUNT NO; POSITIVE DIFFERENTIAL NO; POSITIVE MORPHOLOGY NO
[2018-09-05 17:44] LABS: ALB/GLOB Ratio 0.7 RATIO (0.9-2.4); AST(SGOT) 15 U/L (15-37); Alanine Aminotransfer ALT/SGPT 29 U/L (13-56); Albumin, Serum 3.3 g/dL (3.2-5.0); Alkaline Phosphatase 122 U/L (45-117); Anion Gap 9 (5-15); BUN 13 mg/dL (7-18); BUN/Creat Ratio 11.6 RATIO (10-20); Calcium,Total 8.5 mg/dL (8.5-10.1); Chloride 108 mmol/L (98-107); Creatinine, Serum 1.12 mg/dL (0.55-1.02); EST Glomerular Filtration Rate 57 mL/min (>60); Est Glom Filt Rate - Afr Amer 69 mL/min (>60); Ferritin 31 ng/mL (8-252); Globulin 4.5 g/dL (2.2-4.2); Glucose 115 mg/dL (74-106); Hemoglobin A1c 5.8 % (4.2-6.3); Iron 25 ug/dL (50-170); Potassium 3.6 mmol/L (3.5-5.1); Protein, Total 7.8 g/dL (6.4-8.2); Sodium Level 139 mmol/L (136-145)
[2018-09-05 17:48] LABS: Vitamin B12 1346 pg/mL (211-911); Vitamin D,25 Hydroxy 25.5 ng/mL (29.95-100.01)
== END ==
PROVIDERS: Family Provider Family Medicine; PCP Family Medicine; Visit Provider Family Medicine
DX: R53.83 Other fatigue (principal); D50.9 Iron deficiency anemia, unspecified; E53.8 Deficiency of other specified B group vitamins; E74.39 Other disorders of intestinal carbohydrate absorption; Z51.81 Encounter for therapeutic drug level monitoring
CPT/HCPCS: 36415; 80053; 82306; 82607; 82728; 83036; 83540; 85025

== ENCOUNTER → 2018-09-12 10:12 | Outpatient (CLI) | payer BC, SELFPAY ==
--- NOTE | 2018-09-12 10:14 | BI_ITS ---
MAMMOGRAPHY - BILATERAL SCREENING REASON FOR EXAM: Female, 38 years old. Routine annual screening examination. PERTINENT HISTORY: Aunt with breast cancer. TECHNIQUE: Digital bilateral breast perri (3D mammographic acquisition) in the CC and MLO projections. 2-D mediolateral oblique (MLO) and craniocaudad (CC) views of both breasts were obtained. CAD: Full Field Digital Mammography with Computer Added Detection was performed. COMPARISON: Comparison is made with prior outside examination dated July 10, 2013 and March 17, 2011. FINDINGS: Breast Composition: There are scattered areas of fibroglandular density. There are no dominant masses or suspicious calcifications. No other significant abnormalities are identified. There has been no significant change since the prior study. BI/SCREENING MAMM (CAD), BILAT IMPRESSION: Stable bilateral screening mammogram. Yearly follow-up mammogram recommended. (A) ASSESSMENT CATEGORY: BIRADS Category 1: Negative. A letter regarding these results will be sent to the patient by the facility within 30 days. Approximately 10% of breast cancers are not detected by mammography. A normal mammogram should not delay biopsy of a clinically suspicious abnormality. [id number] Electronically Signed: Nile Cm MD at 12:02 EST Tel [phone], Service support ,
== END ==
PROVIDERS: Family Provider Family Medicine; PCP Family Medicine; Visit Provider Obstetrics & Gynecology
DX: Z12.31 Encounter for screening mammogram for malignant neoplasm of breast (principal)
CPT/HCPCS: 77063; 77067

== ENCOUNTER → 2018-11-14 11:18 | Outpatient (CLI) | payer BC, SELFPAY ==
[2018-11-14 15:57] LABS: Anion Gap 8 (5-15); BUN 13 mg/dL (7-18); BUN/Creat Ratio 12.5 RATIO (10-20); Calcium,Total 8.6 mg/dL (8.5-10.1); Chloride 109 mmol/L (98-107); Creatinine, Serum 1.04 mg/dL (0.55-1.02); EST Glomerular Filtration Rate 62 mL/min (>60); Est Glom Filt Rate - Afr Amer 75 mL/min (>60); Ferritin 44 ng/mL (8-252); Glucose 79 mg/dL (74-106); Iron 26 ug/dL (50-170); Sodium Level 139 mmol/L (136-145)
[2018-11-14 16:13] LABS: Absolute Lymphocyte Count 1.88 X10^3/ul (0.83-4.51); Absolute Neutrophil Count 4.7 X10^3/uL (2.0-7.7); Basophil# 0.03 X10^3/uL; Basophil% 0.4 % (0-1); Eosinophil# 0.23 X10^3/uL; Eosinophils% 3.1 % (0-5); Hematocrit 39.7 % (37-47); Hemoglobin 12.5 g/dl (12.0-15.0); Lymphocyte # 1.88 X10^3/ul (4.0); Mean Corp Hgb Conc 31.5 g/gl (32-36); Mean Corpuscular Hgb 24.8 pg (27.0-32.0); Mean Corpuscular Volume 78.6 fL (81-99); Mean Platelet Vol. 11.8 fl (6.2-12.0); Monocyte# 0.59 X10^3/uL; Monocyte% 7.9 % (0-10); Neutrophil # 4.74 X10^3/uL (2.7-7.7); Neutrophil % 63.1 % (47-70); Platelet Count 306 K/mm3 (150-450); RBC Distribution Width CV 17.1 % (11.6-14.6); RBC Distribution Width SD 47.8 fl (35.1-43.9); Red Blood Count 5.05 M/mm3 (4.2-5.4); White Blood Count 7.5 K/mm3 (4.4-11.0)
[2018-11-14 16:14] LABS: POSITIVE COUNT NO; POSITIVE DIFFERENTIAL NO; POSITIVE MORPHOLOGY NO
== END ==
PROVIDERS: Family Provider Family Medicine; PCP Family Medicine; Visit Provider Family Medicine
DX: D50.9 Iron deficiency anemia, unspecified (principal); Z51.81 Encounter for therapeutic drug level monitoring
CPT/HCPCS: 36415; 80048; 82728; 83540; 85025

== ENCOUNTER → 2019-01-07 | Outpatient (CLI) | payer BC, SELFPAY ==
[2019-01-07 17:37] LABS: Absolute Lymphocyte Count 2.46 X10^3/ul (0.83-4.51); Absolute Neutrophil Count 8.4 X10^3/uL (2.0-7.7); Basophil# 0.03 X10^3/uL; Basophil% 0.3 % (0-1); Eosinophil# 0.19 X10^3/uL; Eosinophils% 1.6 % (0-5); Hematocrit 37.1 % (37-47); Hemoglobin 11.7 g/dl (12.0-15.0); Immature Platelet Fraction 2.8 % (1.0-7.9); Lymphocyte # 2.46 X10^3/ul (4.0); Lymphocyte % 21.2 % (19-41); Mean Corp Hgb Conc 31.5 g/gl (32-36); Mean Corpuscular Hgb 25.2 pg (27.0-32.0); Mean Corpuscular Volume 79.8 fL (81-99); Mean Platelet Vol. 10.4 fl (6.2-12.0); Monocyte# 0.57 X10^3/uL; Monocyte% 4.9 % (0-10); Neutrophil # 8.36 X10^3/uL (2.7-7.7); Neutrophil % 71.8 % (47-70); Platelet Count 295 K/mm3 (150-450); RBC Distribution Width CV 16.2 % (11.6-14.6); RET-HE 25.7 pg (30-35); Red Blood Count 4.65 M/mm3 (4.2-5.4); Reticulocyte Count 1.81 % (0.5-1.5); White Blood Count 11.6 K/mm3 (4.4-11.0)
[2019-01-07 17:41] LABS: POSITIVE COUNT NO; POSITIVE DIFFERENTIAL NO; POSITIVE MORPHOLOGY NO
[2019-01-07 17:54] LABS: Ferritin 26 ng/mL (8-252); Iron 24 ug/dL (50-170); LDH 162 U/L (84-246)
[2019-01-10 15:52] LABS: EBV Acute VCA IgM < 36.0 U/mL (0.0-35.9); EBV Early Antigen IgG 51.2 U/mL (0.0-8.9); EBV Nuclear Antigen IgG < 18.0 U/mL (0.0-17.9)
== END | disposition home or self-care (01) ==
LOC: BFHLAB 16:10
PROVIDERS: Family Provider Family Medicine; PCP Family Medicine; Visit Provider Family Medicine
DX: D50.9 Iron deficiency anemia, unspecified (principal); R53.83 Other fatigue; R59.1 Generalized enlarged lymph nodes
CPT/HCPCS: 36415; 82728; 83540; 83615; 85025; 85045; 86663; 86664; 86665

== ENCOUNTER → 2019-01-08 13:16 | Outpatient (CLI) | payer BC, SELFPAY ==
--- NOTE | 2019-01-08 13:19 | CT_ITS ---
HISTORY: LEFT SIDED ABD PAIN, SPLENOMEGALYHX OF DANIELLE, BRONWYN EXAMINATION: CT Abdomen And Pelvis W/ Contrast TECHNIQUE: Helically acquired images were obtained of the abdomen and pelvis following IV contrast. A radiation dose optimization technique was used for this scan. IV Contrast dosage and agent: 100ML Isovue 370 Oral contrast: Yes. COMPARISON: 04/06/18 CT abdomen and pelvis. FINDINGS: LOWER CHEST: Lung bases are clear. No cardiomegaly or pericardial effusion observed. LIVER: Homogeneous. No focal mass. GALLBLADDER AND BILIARY TREE: Status post cholecystectomy No intra- or extrahepatic biliary ductal dilation. KIDNEYS AND URETERS: No hydronephrosis or acute renal abnormality. No ureteral dilation. As before, the right kidney is prominent in size and the left is atrophic with cortical thinning and scarring. Small cortical calcification versus nonobstructing stone lower pole left kidney unchanged. The lower pole stone seen in the right kidney on the previous study is not evident today. ADRENAL GLANDS: Non-enlarged. SPLEEN: Mildly prominent in size, unchanged. No focal lesions. PANCREAS: No focal cystic or solid mass. BOWEL: Appendix not identified. No evidence of appendicitis No stomach or bowel distension. No focal inflammatory change observed. Small duodenal diverticulum, noninflamed. LYMPH NODES: No enlarged mesenteric or retroperitoneal lymph nodes. PERITONEUM: No ascites or free air. No other fluid collection. VESSELS: Aorta is non-dilated. URINARY BLADDER: Unremarkable. REPRODUCTIVE ORGANS: Status post hysterectomy. Normal bilateral ovaries including a 2.7 cm physiologic right ovarian cyst. ABDOMINAL WALL: No discrete abdominal or pelvic wall hernia observed. BONES: No acute findings. Prominent L1-2 disc degeneration and again demonstrated. CT/Abdomen/Pelvis WITH Contrast IMPRESSION: No acute findings. Individualized dose optimization techniques were used for this CT. at 0236 Reported and signed by: Clarence Moss MD Electronically Signed: Clarence Moss, at 2:35 EDT Tel , Service support ,
== END ==
PROVIDERS: Family Provider Family Medicine; PCP Family Medicine; Referring Provider Family Medicine; Visit Provider Family Medicine
DX: R10.812 Left upper quadrant abdominal tenderness (principal); R10.814 Left lower quadrant abdominal tenderness; D64.9 Anemia, unspecified; R16.1 Splenomegaly, not elsewhere classified
CPT/HCPCS: 74177; Q9967

== ENCOUNTER → 2019-01-21 13:17 | Outpatient (CLI) | payer BC, SELFPAY ==
[2019-01-21 14:07] VITALS: BP 119/74; PULSE 78; RESP 16; TEMP 36.5; O2SAT 99; BMI 44.4
== END ==
PROVIDERS: Family Provider Family Medicine; PCP Family Medicine; Referring Provider Family Medicine; Visit Provider Family Medicine
DX: D50.9 Iron deficiency anemia, unspecified (principal)
CPT/HCPCS: 96365; J1756; J7050; A4216

== ENCOUNTER → 2019-01-28 13:07 | Outpatient (CLI) | payer BC, SELFPAY ==
[2019-01-21 14:07] VITALS: BMI 44.4
[2019-01-28 13:21] VITALS: BP 118/66; PULSE 88; RESP 18; TEMP 37.1; O2SAT 97; BMI 44.4
== END ==
PROVIDERS: Family Provider Family Medicine; PCP Family Medicine; Referring Provider Family Medicine; Visit Provider Family Medicine
DX: D50.9 Iron deficiency anemia, unspecified (principal)
CPT/HCPCS: 96365; J1756; A4216

== ENCOUNTER → 2019-02-04 15:18 | Outpatient (CLI) | payer BC, SELFPAY ==
[2019-01-28 13:21] VITALS: BMI 44.4
[2019-02-04 15:54] VITALS: BP 108/66; PULSE 83; RESP 16; TEMP 37.2; O2SAT 100; BMI 44.1
== END ==
PROVIDERS: Family Provider Family Medicine; PCP Family Medicine; Referring Provider Family Medicine; Visit Provider Family Medicine
DX: D50.9 Iron deficiency anemia, unspecified (principal)
CPT/HCPCS: 96365; J1756; J7050; A4216

== ENCOUNTER → 2019-02-13 13:02 | Outpatient (CLI) | payer BC, SELFPAY ==
[2019-02-04 15:54] VITALS: BMI 44.1
[2019-02-13 13:29] VITALS: BP 111/61; PULSE 83; RESP 16; TEMP 36.5; O2SAT 100; BMI 44.1
== END ==
PROVIDERS: Family Provider Family Medicine; PCP Family Medicine; Referring Provider Family Medicine; Visit Provider Family Medicine
DX: D50.9 Iron deficiency anemia, unspecified (principal)
CPT/HCPCS: 96365; J1756; J7050; A4216

== ENCOUNTER → 2019-02-22 12:52 | Outpatient (CLI) | payer BC, SELFPAY ==
[2019-02-13 13:29] VITALS: BMI 44.1
[2019-02-22 13:09] VITALS: BP 109/62; PULSE 87; RESP 14; TEMP 37; O2SAT 98; BMI 44.1
== END ==
PROVIDERS: Family Provider Family Medicine; PCP Family Medicine; Referring Provider Family Medicine; Visit Provider Family Medicine
DX: D50.9 Iron deficiency anemia, unspecified (principal)
CPT/HCPCS: 96365; J1756; J7050; A4216

== ENCOUNTER → 2019-05-18 08:00 | Outpatient (CLI) | payer BC, SELFPAY ==
[2019-02-22 13:09] VITALS: BMI 44.1
--- NOTE | 2019-05-18 08:11 | MRI_ITS ---
STUDY: MRI RIGHT ANKLE WITHOUT CONTRAST REASON FOR EXAM: Female, 38 years old. Pain. TECHNIQUE: Standardized fat and water weighted pulse sequences were obtained in all 3 orthogonal planes. COMPARISON: None. FINDINGS: Normal subcutis adipose space. Normal posterior tibialis tendon. Normal flexor digitorum longus tendon. Normal flexor hallucis longus tendon. Normal peroneus longus and brevis tendons. Normal tibialis anterior tendon. Normal extensor hallucis longus tendon. Normal extensor digitorum longus tendons. Normal Achilles tendon and teno-osseous insertion. There is thickening of the proximal plantar fascia. Normal plantar calcaneal tubercles. Normal intrinsic muscles of the rearfoot. Normal distal tibiofibular syndesmotic ligamentous complex. Normal lateral ligamentous complex. Normal subtalar ligaments and sinus tarsi. There is spurring and fragmentation of the medial malleolus. There is thickening and chronic sprain of the anterior tibiotalar ligament. Normal plantar calcaneonavicular (spring) ligament. Joint effusion of the tibiotalar articulation. There is osteochondral edema and cystic change of the tibial plafond. Normal talar dome. Arthrosis at the medial aspect of the subtalar articulations. There is spurring and cystic change and edema of the talus and calcaneus, series 8 images 15/36 and 16/36 . Normal talonavicular articulation. Normal calcaneocuboid articulation. Normal navicular-cuneiform articulations. 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 Chronic medial sprain and/or impingement. Electronically Signed: Fadi Killian MD at 11:03 EDT , Service support ,
== END ==
PROVIDERS: Family Provider Family Medicine; PCP Family Medicine; Referring Provider Podiatrist; Visit Provider Podiatrist
DX: G57.51 Tarsal tunnel syndrome, right lower limb (principal)
CPT/HCPCS: 73721

== ENCOUNTER 2019-05-19 11:35 | Emergency (ER) | payer BC, SELFPAY ==
[2019-02-22 13:09] VITALS: BMI 44.1
[2019-05-19 11:37] VITALS: BP 135/73; PULSE 88; RESP 17; TEMP 37.1; O2SAT 95; BMI 45.4
[2019-05-19 12:11] LABS: Absolute Lymphocyte Count 2.05 X10^3/uL (0.83-4.51); Absolute Neutrophil Count 7.3 X10^3/uL (2.0-7.7); Basophil# 0.02 X10^3/uL; Basophil% 0.2 % (0-1); Eosinophil# 0.19 X10^3/uL; Eosinophils% 1.9 % (0-5); Hematocrit 41.4 % (37-47); Hemoglobin 13.7 g/dL (12.0-15.0); Lymphocyte # 2.05 X10^3/ul (4.0); Lymphocyte % 20.2 % (19-41); Mean Corp Hgb Conc 33.1 g/dL (32-36); Mean Corpuscular Hgb 27.7 pg (27.0-32.0); Mean Corpuscular Volume 83.8 fL (81-99); Mean Platelet Vol. 10.2 fl (6.2-12.0); Monocyte# 0.53 X10^3/uL; Monocyte% 5.2 % (0-10); NRBC Flagged by Analyzer 0 % (0-5); Neutrophil # 7.28 X10^3/uL (2.7-7.7); Neutrophil % 71.7 % (47-70); Platelet Count 253 K/mm3 (150-450); RBC Distribution Width CV 14.7 % (11.6-14.6); RBC Distribution Width SD 44.8 fl (35.1-43.9); Red Blood Count 4.94 M/mm3 (4.2-5.4); White Blood Count 10.2 K/mm3 (4.4-11.0)
[2019-05-19 12:21] LABS: Anion Gap 7 (5-15); BUN 12 mg/dL (7-18); BUN/Creat Ratio 12.4 RATIO (10-20); Calcium,Total 8.6 mg/dL (8.5-10.1); Chloride 109 mmol/L (98-107); Creatinine, Serum 0.97 mg/dL (0.55-1.02); EST Glomerular Filtration Rate 67 mL/min (>60); Est Glom Filt Rate - Afr Amer 81 mL/min (>60); Estimated Creatinine Clearance 77.77 ml/min; Glucose 89 mg/dL (74-106); Potassium 3.7 mmol/L (3.5-5.1); Sodium Level 140 mmol/L (136-145)
[2019-05-19 12:35] LABS: Mucous, Urine 0 SEEN /hpf (<or=2+); Red Blood Cells-Urine 0 SEEN /hpf (0-5); White Blood Cells 0 SEEN /hpf (0-5)
[2019-05-19 12:36] LABS: Color, Urine Yellow (Yellow); Glucose, Dipstick Normal (Normal); Ketone-Dipstick Negative (Negative); Leukocyte Esterase-Dipstick 25 /ul (Negative); Nitrite-Dipstick Negative (Negative); Occult Blood-Urine Negative /ul (Negative); Protein-Dipstick 15 mg/dl (Negative); Urine Bilirubin Dipstick Negative (Negative); Urine Clarity Clear (Clear); Urine Urobilinogen Normal (Normal); Urine pH 6.5 (5.0 - 8.0)
[2019-05-19 12:36] LABS: Internal QC Validated? YES +Cl - CLEAR BKGD; Pregnancy, Serum, hCG Quali. NEGATIVE Negative
[2019-05-19 12:42] LABS: Bacteria 1+ /hpf (None Seen); Squamous Epithelial Cells - UA 0-5 SEEN /hpf (5-10)
--- NOTE | 2019-05-19 12:44 | ED.DCSUM_ITS ---
History of Present Illness Chief Complaint: Abd Pain Informant: Patient Onset: Days Narrative: Patient presents to the ED with upper abdominal pain that she states it wraps around to her back that started several days ago. She does report associated nausea and states this morning she did vomit. She did take a Phenergan which was prescribed by her PCP. Several weeks ago, she was started on Trulicity by her PCP for her PCOS. She states that he took her dose yesterday, however symptoms started prior to this. The medication is making her nauseous and that is why her PCP prescribed her Phenergan. She does have a history of cholecystectomy. She denies any urinary symptoms or changes in bowel movements. Past Medical History - Allergies and Home Meds Allergies/Adverse Reactions: Allergies acetaminophen [From Midrin] Allergy (Verified 05/19/19 11:37) Chest tightness buspirone [From BuSpar] Allergy (Verified 05/19/19 11:37) Chest tightness ciprofloxacin [From Cipro] Allergy (Verified 05/19/19 11:37) Hives ciprofloxacin HCl [From Cipro] Allergy (Verified 05/19/19 11:37) Hives dichloralphenazone [From Midrin] Allergy (Verified 05/19/19 11:37) Chest tightness isometheptene mucate [From Midrin] Allergy (Verified 05/19/19 11:37) Chest tightness nortriptyline [Nortriptyline] Allergy (Verified 05/19/19 11:37) Chest tightness Primary Care Physician: Sujey Shaikh DO [Primary Care Provider] - Surgical History: - - tubal ligation, widom teeth, x 2, carpal tunnel Smoking Status: Never smoker Review of Systems General: Denies: Chills, Fever, Sweats Eyes: Denies: Visual changes - bilaterally, Diplopia ENT: Denies: Rhinorrhea, Sore throat Cardiovascular: Denies: Chest pain, Palpitations Respiratory: Denies: Dyspnea, Cough, Dyspnea on exertion Gastrointestinal: Reports: Abdominal pain - Right upper quadrant, Nausea, Vomiting. Denies: Diarrhea, Melena, Hematochezia Genitourinary: Reports: -. Denies: Hematuria, Frequency Musculoskeletal: Denies: Back pain, Extremity Pain Skin: Denies: Rash, Wounds Neurological: Denies: Headache, Weakness, Numbness Physical Exam Vital Signs/Narrative: Vital Signs Temp Pulse Resp BP Pulse Ox 05/19/19 11:37 98.7 F 88 17 135/73 H 95 Inital Vital Signs reviewed: Yes General: Well nourished, Well developed, No Acute Distress Head: Normocephalic, Atraumatic Eyes: Perrl, EOMI ENT: Moist mucous membranes, No rhinorrhea Neck: Supple, Nontender Cardiovascular: Regular rate, Regular rhythm, No murmurs Respiratory: No distress, CTA bilaterally, Chest nontender, Chest tenderness, - - Right lower anterior ribs Abdomen: Soft, Nondistended, Normal bowel sounds, Tender - Right upper quadrant. Negative for: Guarding, Rebound tenderness Back: Nontender, Normal Inspection Extremities: Nontender, No edema Skin: Normal color, No rash Neurological: Alert, Oriented x3, Cranial nerves II-XII grossly intact, Normal Strength, Normal Sensation Psychological: Normal affect, Normal Mood Diagnostic/Tx/Re-eval - Medical Decision Making Patient presents to the ED with upper abdominal pain that started several days ago and is progressively worsening. She reports associated nausea and vomiting. She is tender in the upper abdominal region, right upper quadrant greater than left upper quadrant. No guarding or rigidity on physical exam. Patient was given IV fluids, Zofran, and morphine for symptomatic relief. Laboratory booker dies are unremarkable. Patient was also given a GI cocktail. I discussed with her that at this time it is unclear what is the cause of her symptoms. She will continue her PPI and H2 meng at home. She was advised to contact her PCP tomorrow to arrange follow-up. She is educated on signs/symptoms to return to the ED. She is provided discharge instructions. She is agreeable to plan. Impression: Upper abdominal pain, unknown etiology. Nausea and vomiting. Disposition: Home stable ED Disposition - Plan for ED Patient: Disposition: Home or Assisted Living Diagnosis: Abdominal pain Instructions: ABDOMINAL PAIN, Unknown Cause, (Female) Referrals: Sujey Shaikh DO [Primary Care Provider] - Additional Instructions: Follow up with your primary care provider if symptoms persist or worsen.
[2019-05-19 12:59] LABS: AST(SGOT) 10 U/L (15-37); Alanine Aminotransfer ALT/SGPT 19 U/L (13-56); Albumin, Serum 3.1 g/dL (3.2-5.0); Alkaline Phosphatase 110 U/L (45-117); Bilirubin, Direct 0.11 mg/dL (0.00-0.30); Globulin 4.2 g/dL (2.2-4.2); Protein, Total 7.3 g/dL (6.4-8.2)
[2019-05-19] MEDS: Morphine 4 MG/ML Syringe IV (13:06)
[2019-05-19] MEDS: 0.9% Normal Saline 1,000 ML 1000 ML IV (13:06)
[2019-05-19] MEDS: Ondansetron 4 MG/2 ML Vial IV (13:06)
[2019-05-19 13:51] LABS: Lipase 111 U/L (73-393)
[2019-05-19] MEDS: Mag Hydrox/Al Hydrox/Simeth 30 ML UDC PO (14:00)
[2019-05-19 14:03] VITALS: BP 116/78
[2019-05-19 14:17] VITALS: BP 116/78; PULSE 84; RESP 18
== END 2019-05-19 14:22 | disposition home or self-care (01) ==
PROVIDERS: Emergency Provider Physician Assistant; Family Provider Family Medicine; PCP Family Medicine
DX: R10.10 Upper abdominal pain, unspecified (principal); R11.2 Nausea with vomiting, unspecified; Z88.1 Allergy status to other antibiotic agents; E28.2 Polycystic ovarian syndrome; Z90.49 Acquired absence of other specified parts of digestive tract
CPT/HCPCS: 80048; 80076; 81001; 83690; 84703; 85025; 96361; 96374; 96375; 99285; J7030; A4216; J2405

== ENCOUNTER → 2019-09-24 10:36 | Outpatient (CLI) | payer BC, SELFPAY ==
[2019-08-08 11:11] VITALS: BMI 45.4
--- NOTE | 2019-09-24 10:37 | BI_ITS ---
MAMMOGRAPHY - BILATERAL SCREENING 3-D TOMOSYNTHESIS REASON FOR EXAM: Female, 39 years old. FAM HX OF PAT AUNT 33 NO SX -- PAST U/S DONE BECAUSE OF BILAT DISCHARGE QUIT IN 2013 AFTER HYSTER AND REMOVAL OF IUD PERTINENT HISTORY: Positive family history as described above. TECHNIQUE: 2-D mammograms and 3-D Tomosynthesis of the breast (s) were performed. CAD was performed. COMPARISON: 09/12/2018, 03/17/2011 FINDINGS: The breast composition is composed of scattered fibroglandular density. Scattered benign calcifications are seen. No dense spiculated masses or suspicious microcalcifications are identified. No architectural distortion is identified. There is no skin thickening or retraction. There has been no significant change since the prior study. BI/SCREEN MAMM (CAD) W/TERESITA BILAT IMPRESSION: No mammographic signs of malignancy. Routine yearly mammograms recommended. ASSESSMENT CATEGORY: BIRADS Category 2: Benign. A letter regarding these results will be sent to the patient by the facility within 30 days. FOLLOW UP RECOMMENDATION: Yearly follow up mammogram recommended. (A) Approximately 10% of breast cancers are not detected by mammography. A normal mammogram should not delay biopsy of a clinically suspicious abnormality. Electronically Signed: Sammy Pelletier MD at 15:25 EST Tel [phone], Service support ,
== END ==
PROVIDERS: Family Provider Family Medicine; PCP Family Medicine; Referring Provider Obstetrics & Gynecology; Visit Provider Obstetrics & Gynecology
DX: Z12.31 Encounter for screening mammogram for malignant neoplasm of breast (principal)
CPT/HCPCS: 77063; 77067

== ENCOUNTER → 2020-08-25 08:23 | Outpatient (CLI) | payer BC, SELFPAY ==
[2019-08-08 11:11] VITALS: BMI 45.4
--- NOTE | 2020-08-25 08:30 | RAD_ITS ---
STUDY: X-RAY - LEFT ANKLE REASON FOR EXAM: Left ankle pain and swelling since yesterday, no specific injury. TECHNIQUE: 3 view(s) of the ankle. COMPARISON: None. FINDINGS: Normal visualized distal tibia and fibula. Normal medial and lateral malleoli. There is a small radiolucency in the lateral aspect of the talar dome on the oblique view. Normal visualized talus and calcaneus. There is an os trigonum. The visualized subtalar, talonavicular, calcaneocuboid and tarsal articulations are normal. There is soft tissue swelling. RAD/Ankle min 3 Views IMPRESSION: Small osteochondral lesion of the lateral talar dome. Soft tissue swelling. Electronically Signed: Chiki Joyner MD at 11:21 EST Tel , Service support ,
== END ==
PROVIDERS: PCP Family Medicine; Referring Provider Family Medicine; Visit Provider Family Medicine
DX: M25.572 Pain in left ankle and joints of left foot (principal)
CPT/HCPCS: 73610

== ENCOUNTER → 2020-09-28 08:23 | Outpatient (CLI) | payer BC, SELFPAY ==
[2019-08-08 11:11] VITALS: BMI 45.4
--- NOTE | 2020-09-28 08:24 | BI_ITS ---
MAMMOGRAPHY - BILATERAL SCREENING REASON FOR EXAM: Female, 40 years old. Routine annual screening examination. PERTINENT HISTORY: PT PAT AUNT AGE 33 HAD BREAST CA PT HAD FIRST CHILD AT AGE 25 NO SX PAST U/S DONE BECAUSE OF BILAT DISCHARGE- PT NO LONGER HAVING DISCHARGE- QUIT IN 2013 AFTER HYSTERECTOMY AND REMOVAL OF IUD TECHNIQUE: Digital bilateral breast teresita (3D mammographic acquisition) in the CC and MLO projections. 2-D mediolateral oblique (MLO) and craniocaudad (CC) views of both breasts were obtained. CAD: Full Field Digital Mammography with Computer Added Detection was performed. COMPARISON: 09/24/2019 and 09/12/2018 FINDINGS: Breast Composition: The breasts are almost entirely fatty. There are no dominant masses or suspicious calcifications. No other significant abnormalities are identified. BI/SCREEN MAMM (CAD) W/TERESITA BILAT IMPRESSION: Stable bilateral screening mammogram. Yearly follow-up mammogram recommended. (A) ASSESSMENT CATEGORY: BIRADS Category 2: Benign. A letter regarding these results will be sent to the patient by the facility within 30 days. Approximately 10% of breast cancers are not detected by mammography. A normal mammogram should not delay biopsy of a clinically suspicious abnormality. [id number] Electronically Signed: Cornell Mckeon, at 8:19 EST Tel , Service support ,
== END ==
PROVIDERS: PCP Family Medicine; Referring Provider Obstetrics & Gynecology; Visit Provider Obstetrics & Gynecology
DX: Z12.31 Encounter for screening mammogram for malignant neoplasm of breast (principal); Z80.3 Family history of malignant neoplasm of breast
CPT/HCPCS: 77063; 77067

== ENCOUNTER → 2020-09-30 15:56 | Outpatient (CLI) | payer BC, SELFPAY ==
[2019-08-08 11:11] VITALS: BMI 45.4
[2020-09-30 16:51] LABS: Absolute Lymphocyte Count 2.25 X10^3/uL (0.83-4.51); Absolute Neutrophil Count 7.9 X10^3/uL (2.0-7.7); Basophil# 0.04 X10^3/uL; Basophil% 0.4 % (0-1); Eosinophils% 1.8 % (0-5); Hematocrit 44.2 % (37-47); Hemoglobin 13.9 g/dL (12.0-15.0); Lymphocyte # 2.25 X10^3/ul (4.0); Lymphocyte % 20.3 % (19-41); Mean Corp Hgb Conc 31.4 g/dL (32-36); Mean Corpuscular Volume 85.8 fL (81-99); Monocyte# 0.59 X10^3/uL; Monocyte% 5.3 % (0-10); NRBC Flagged by Analyzer 0 % (0-5); Neutrophil # 7.92 X10^3/uL (2.7-7.7); Neutrophil % 71.5 % (47-70); Platelet Count 290 K/mm3 (150-450); RBC Distribution Width CV 14.8 % (11.6-14.6); RBC Distribution Width SD 46.5 fl (35.1-43.9); Red Blood Count 5.15 M/mm3 (4.2-5.4); White Blood Count 11.1 K/mm3 (4.4-11.0)
[2020-09-30 17:02] LABS: Erythrocyte Sedimentation Rate 62 mm/hr (0-20)
[2020-09-30 17:24] LABS: Hemoglobin A1c 5.5 % (3.8-5.6)
[2020-09-30 18:05] LABS: ALB/GLOB Ratio 0.8 RATIO (0.9-2.4); AST(SGOT) 18 U/L (15-37); Alanine Aminotransfer ALT/SGPT 34 U/L (13-56); Albumin, Serum 3.3 g/dL (3.2-5.0); Alkaline Phosphatase 108 U/L (45-117); Anion Gap 6 (5-15); BUN 14 mg/dL (7-18); BUN/Creat Ratio 13.3 RATIO (10-20); Calcium,Total 8.8 mg/dL (8.5-10.1); Chloride 108 mmol/L (98-107); Creatinine, Serum 1.05 mg/dL (0.55-1.02); EST Glomerular Filtration Rate 61 mL/min (>60); Est Glom Filt Rate - Afr Amer 74 mL/min (>60); Ferritin 142 ng/mL (8-252); Globulin 4.4 g/dL (2.2-4.2); Glucose 102 mg/dL (74-106); Iron 39 ug/dL (50-170); Potassium 3.8 mmol/L (3.5-5.1); Protein, Total 7.7 g/dL (6.4-8.2); Sodium Level 138 mmol/L (136-145)
== END ==
PROVIDERS: PCP Family Medicine; Visit Provider Family Medicine
DX: D50.9 Iron deficiency anemia, unspecified (principal); Z51.81 Encounter for therapeutic drug level monitoring; M25.50 Pain in unspecified joint; E74.39 Other disorders of intestinal carbohydrate absorption
CPT/HCPCS: 36415; 80053; 82728; 83036; 83540; 85025; 85652; 86140

== ENCOUNTER → 2020-10-27 10:00 | Outpatient (CLI) | payer BC, SELFPAY ==
[2019-08-08 11:11] VITALS: BMI 45.4
--- NOTE | 2020-10-27 10:03 | VDLE_ITS ---
Reason For Study: venous insufficiency RIGHT LEFT CFV is compressible, spontaneous, phasic, CFV is compressible, spontaneous, phasic, competent and demonstrates normal competent, and demonstrates normal augmentation. augmentation. FV is compressible, spontaneous, phasic, FV is compressible, spontaneous, phasic, competent and demonstrates normal competent and demonstrates normal augmentation. augmentation. POP V is compressible, spontaneous, phasic, POP V is compressible, spontaneous, phasic, competent and demonstrates normal competent and demonstrates normal augmentation. augmentation. T/P Trunk is compressible. T/P Trunk is compressible. PTV is compressible. PTV is compressible. RT PerV is compressible. LT PerV is compressible. SFJ is competent and measures .61 cm. SFJ is competent and measures .35 cm. GSV proximal thigh measures .48 x .55 cm. GSV proximal thigh measures .56 x .65 cm. GSV at knee measures .38 x .4 cm. GSV at knee measures .47 x .45 cm. GSV above knee is competent. GSV INCOMPETENT throughout for greater than GSV below knee is INCOMPETENT for greater 0.5 seconds. than 0.5 seconds. SSV proximal calf is competent and SSV proximal calf is competent and measures .32 x .34 cm. measures .2 x .21 cm. Large bulging vein in medial foot with normal Procedure venous flow. Vein is an extension of the GSV. This is a venous duplex using B-mode, color flow and spectral Doppler. The exam was diagnostic. Interpretation Summary Deep veins of the lower extremities are bilaterally patent and compressible segmentally. There is no evidence of deep vein thrombosis on either side. Valvular competence appears intact within the proximal deep venous systems bilaterally. The great saphenous veins appear bilaterally patent and compressible segmentally. Sapheno-femoral junctions are bilaterally competent . The right great saphenous vein appears competent above the knee. The right great saphenous vein appears incompetent below the knee. The left great saphenous vein appears segmentally incompetent. Small saphenous veins are patent and competent bilaterally. A large varicosity is noted in the left medial foot, which is patent and is an extension of the left great saphenous vein. Ordering Physician: Mason Valencia Performed By: John Palma RVT
== END ==
PROVIDERS: PCP Family Medicine; Referring Provider Podiatrist; Visit Provider Podiatrist
DX: I87.2 Venous insufficiency (chronic) (peripheral) (principal)
CPT/HCPCS: 93970

== ENCOUNTER → 2020-11-06 16:21 | Outpatient (CLI) | payer BC, SELFPAY ==
[2020-11-06 15:12] VITALS: BMI 47.3
== END ==
PROVIDERS: PCP Family Medicine; Referring Provider Obstetrics & Gynecology; Visit Provider Obstetrics & Gynecology
DX: N89.8 Other specified noninflammatory disorders of vagina (principal)
CPT/HCPCS: 87070; 87205

== ENCOUNTER → 2020-12-14 08:42 | Outpatient (CLI) | payer BC, SELFPAY ==
[2020-11-06 15:12] VITALS: BMI 47.3
[2020-12-14 12:39] LABS: Absolute Neutrophil Count 5.8 X10^3/uL (2.0-7.7); Basophil# 0.04 X10^3/uL; Basophil% 0.5 % (0-1); Eosinophil# 0.21 X10^3/uL; Eosinophils% 2.6 % (0-5); Hematocrit 43.5 % (37-47); Hemoglobin 13.5 g/dL (12.0-15.0); Lymphocyte % 20.8 % (19-41); Mean Corpuscular Hgb 26.6 pg (27.0-32.0); Mean Corpuscular Volume 85.8 fL (81-99); Mean Platelet Vol. 11.4 fl (6.2-12.0); Monocyte# 0.42 X10^3/uL; Monocyte% 5.1 % (0-10); NRBC Flagged by Analyzer 0 % (0-5); Neutrophil # 5.76 X10^3/uL (2.7-7.7); Neutrophil % 70.6 % (47-70); Platelet Count 250 K/mm3 (150-450); RBC Distribution Width CV 15.3 % (11.6-14.6); RBC Distribution Width SD 47.4 fl (35.1-43.9); Red Blood Count 5.07 M/mm3 (4.2-5.4); White Blood Count 8.2 K/mm3 (4.4-11.0)
[2020-12-14 12:59] LABS: ALB/GLOB Ratio 0.8 RATIO (0.9-2.4); AST(SGOT) 20 U/L (15-37); Alanine Aminotransfer ALT/SGPT 35 U/L (13-56); Albumin, Serum 3.4 g/dL (3.2-5.0); Alkaline Phosphatase 105 U/L (45-117); Anion Gap 5 (5-15); BUN 13 mg/dL (7-18); BUN/Creat Ratio 11.8 RATIO (10-20); Calcium,Total 9.3 mg/dL (8.5-10.1); Chloride 107 mmol/L (98-107); EST Glomerular Filtration Rate 58 mL/min (>60); Est Glom Filt Rate - Afr Amer 70 mL/min (>60); Globulin 4.2 g/dL (2.2-4.2); Glucose 100 mg/dL (74-106); Potassium 4.1 mmol/L (3.5-5.1); Protein, Total 7.6 g/dL (6.4-8.2); Sodium Level 138 mmol/L (136-145)
== END ==
PROVIDERS: PCP Family Medicine; Visit Provider Family Medicine
DX: Z01.818 Encounter for other preprocedural examination (principal)
CPT/HCPCS: 36415; 80053; 85025

== ENCOUNTER 2021-01-08 10:28 | Day surgery (SDC) | payer BC, SELFPAY ==
[2020-11-06 15:12] VITALS: BMI 47.3
[2021-01-08 10:57] VITALS: BP 119/78; PULSE 16; RESP 16; TEMP 36.1; O2SAT 100; BMI 48.3
[2021-01-08] MEDS: Lactated Ringers 1,000 ML 100 ML IV (11:03)
--- NOTE | 2021-01-08 12:00 | CYST_PTH ---
PATIENT: YVES SKINNER [place] [facility] [place] U[place][id number] AGE/SX: 40/F ROOM: RE01/08/[address]: Dr. Mason Valencia DPM : 1980 BED: DIS: 01/08/2021 SPEC #: [id number] RECD: 01/11/21 10:00 STATUS: MARIELLA REOzzy #: [id number] DAVID: 01/08/21 12:[address]: Mason Valencia DEPT: SURGICAL PATHOLOGY RECD BY: Mary Gonsales ENTERED: 01/11/21 13:01 SP TYPE: Cyst OTHR DR: Dr. Sujey Shaikh DO Tissues: A - CYST B - CYST Procedures: Decalcification bone/plaque Surgery Specimen Level IV HEADER OPERATION: Foot tarsal tunnel decompression with excision of cyst PRE-OP DIAGNOSIS: Tarsal tunnel syndrome, ganglion cyst, os trigonum syndrome, plantar fasciitis TISSUE SUBMITTED: A - Os trigonum left ankle, B - Left ankle cyst fluid and tissue from tarsal tunnel MICROSCOPIC DIAGNOSIS A. Os trigonum, left ankle, excision: Osseocartilaginous tissue with reactive and reparative change consistent with os trigonum. B. Cyst and tissue of left ankle, excision: Consistent with benign cyst with associated fibrosis and minimal chronic inflammation. AM:michaela 01/13/2021 MICROSCOPIC DESCRIPTION Slides are reviewed. GROSS DESCRIPTION A - Received in fixative is one container labeled with the patient's name and designated os trigonum left ankle. The specimen consists of a piece of bone with attached soft tissue measuring 2 x 1 x 0.6 cm. The specimen will be serially sectioned and submitted entirely in one cassette after decalcification. B - Received in fixative is one container labeled with the patient's name and designated left ankle cyst fluid and tissue from tarsal tunnel. The specimen consists of multiple irregular fragments of sanchez soft tissue that in aggregate measure 3 x 2.5 x 0.3 cm. A few of the fragments appear to consist of cyst wall also mixed with multiple fragments of mucoid material. The entire specimen is submitted in one cassette. / SJ:michaela 01/11/21 TC:5 CPT: 98135 x2, 12756
--- NOTE | 2021-01-08 13:15 | RAD_ITS ---
STUDY: X-RAY - LEFT FOOT CLINICAL: Female, 40 years old. PAIN TECHNIQUE: 3 view(s) of the foot. COMPARISON: 08/25/2020 FINDINGS: 59 seconds of fluoroscopy of the foot was utilized and operating room and 3 images suspended for interpretation.. RAD/Foot 2 Views IMPRESSION: Fluoroscopy during surgery. Electronically Signed: Fernando Dean MD at 10:54 EDT Tel , Service support ,
[2021-01-08] MEDS: Bupivacaine Mpf 0.5% 30 ML VIAL ×2 (15:07→16:11)
--- NOTE | 2021-01-08 16:27 | DCINST_ITS ---
Discharge Diet: Light diet - advance as tolerated Discharge Activity: May Not Drive, Use Walker, Use Crutches Weight Bearing Status: No weight bearing - No weightbearing left foot. Keep extremity elevated above heart level: Left Leg - Keep left foot elevated using pillows with pressure off of heel. Keep left foot elevated for at least 50 minutes of every hour. Call your doctor if your incision/area has: Continuous Slow Oozing, Sudden Increased Bleeding, Foul Smelling Discharge Call your doctor if you observe: Fever of 101 or Higher, Shortness of breath, Chest pain, Calf discomfort, Uncontrolled pain Cleanse incision/area with: Do not get Incision Wet, Keep Dressing Clean & Dry Allergies/Adverse Reactions: Allergies acetaminophen [From Midrin] Allergy (Verified 01/08/21 10:35) Chest tightness buspirone [From BuSpar] Allergy (Verified 01/08/21 10:35) Chest tightness ciprofloxacin [From Cipro] Allergy (Verified 01/08/21 10:35) Hives ciprofloxacin HCl [From Cipro] Allergy (Verified 01/08/21 10:35) Hives dichloralphenazone [From Midrin] Allergy (Verified 01/08/21 10:35) Chest tightness isometheptene mucate [From Midrin] Allergy (Verified 01/08/21 10:35) Chest tightness nortriptyline [Nortriptyline] Allergy (Verified 01/08/21 10:35) Chest tightness Medications to take at Discharge Calcium Carb/Vitamin D [Caltrate-600 With Vit D Tab] 1 tab PO DAILY@0803/11/14 Folic Acid 0.4 mg PO DAILY@0803/11/14 Multivitamins,Therapeutic [Multivitamin] 1 tab PO DAILY 03/11/14 Diclofenac Epolamine [Flector] 1 patch TOPICAL PRN PRN 04/12/18 Lorazepam [Ativan] 1 tab PO DAILY PRN 04/12/18 Montelukast Sodium [Singulair] 4 mg PO DAILY 04/12/18 Pantoprazole Sodium [Protonix] 40 mg PO DAILY 04/12/18 Sertraline HCl [Zoloft] 200 mg PO DAILY 04/12/18 Topiramate [Topamax] 50 mg PO DAILY 04/12/18 magnesium oxide 500 mg capsule 500 mg PO DAILY 11/06/20 vitamin B complex 1 cap PO DAILY 11/06/20 Albuterol IH (ProAir) [Proair Hfa (SP)Vent Pts] 1 - 2 puff INHALATION Q6H PRN PRN 12/25/20 Hydrocodone/Acetaminophen [Vicodin 5-300 mg Tablet] 1 - 2 tablet PO Q6H PRN PRN 3 Days #30 tablet 01/08/21 The following prescriptions were given: Hydrocodone/Acetaminophen [Vicodin 5-300 mg Tablet] 1 - 2 tablet PO Q6H PRN PRN 3 Days #30 tablet PRN Reason: Pain Score 4-10 Prescription Printed Orders to be completed after discharge: COVID 19 AG RAPID (RN COLLECT) Time Frame: 12/31/20, Facility: [facility], Location: Laboratory Primary Care Physician: Sujey Shaikh DO [Primary Care Provider] - Test Results: Test results from this visit will be discussed in further detail at your follow- up appointment, if applicable. Please Follow Up With: Mason Valencia DPM - Call Dr. Valencia over weekend if needed. Page: [facility] Physician's Registry: [phone]; When: Next week as scheduled, sooner if needed.
[2021-01-08 16:30] VITALS: BP 108/70; BP 119/78; PULSE 60; RESP 16; TEMP 35.7; O2SAT 100
--- NOTE | 2021-01-08 16:30 | PCM.OPRPT ---
Report of Operation Date of Procedure: 01/08/21 - Surgeon: Dr. Mason Valencia Pre-Operative Diagnosis: Tarsal tunnel syndrome, left foot/ankle. Cyst left medial hindfoot/ankle. Plantar fasciitis, left foot. 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 Yolanda Whalen Type of Anesthesia:: General, Local Specimen's removed: Exicised os trigonum from left foot/ankle sent to pathology. Cyst and excised tissue from left tarsal tunnel sent to pathology Estimated Blood Loss (mL): 40mL Description of Procedure: Indications: This is a 40 year old female who has continued pain and symptoms to the left foot. She has pain to the tarsal tunnel with numbness to the bottom of the foot. She also has plantar fascia symptoms, and os trigonum syndrome. Pre operative MRI showed cystic mass and varicose vein to the tarsal tunnel, also os trigonum syndrome. She also has subsequently developed plantar fasciitis symptoms. This persists despite rest, activity modifications, immobilization, anti-inflammatories, changes in shoegear, changes in shoes, and corticosteroid injection. She continues to have significant pain and symptoms. Therefore further options were discussed with her. She elected to proceed forward with surgical intervention. This was discussed with them in great detail, reviewed the procedures with her in detail, reviewed the rationale, possible benefits, risks/potential complications, goals, expectations, estimated healing time all in great detail. Patient expressed understanding, and elected to proceed forward with the procedures. The consent forms were reviewed with her, and this was freely signed. All of her questions were answered. No guarantees were given nor implied. Operative Procedure: The patient was brought back into the operating room. A time out was performed and the patient was properly identified and the surgical plan was confirmed. The patient received 2 grams of IV Ancef for antibiotic prophylaxis. The patient received general anesthesia per the anesthesiologist. A well padded pneumatic tourniquet was applied around the patient's left thigh. The patient was placed on the operating room table in the prone position with all areas well padded. She was carefully secured to the operating room table with a safety belt around the waist. The left foot and ankle were scrubbed, prepped, draped in the usual aseptic fashion. The patient's left foot/ankle was exsanguinated using an Esmarch bandage and was elevated; the thigh pneumatic tourniquet was inflated to 350mmHg. Left os trigonum excision: Attention was directed to the left hindfoot. Intra operative fluoroscopy confirmed os trigonum impingement. A skin incision was made just lateral to the Achilles tendon. Careful dissection was completed through the subcutaneous tissue layer, down to the os trigonum and posterior subtalar joint. The os trigonum was identified. It was impinging the posterior subtalar joint and ankle joint. There was scar tissue adhesions present to the site. The os trigonum was carefully dissected out and excised, along with the scar tissue, releasing the adhesions. This was sent to pathology as specimen. The posterior subtalar joint was visualized and there was some wearing way of the cartilage on the very most posterior aspect consistent with chronic os trigonum syndrome impingement, otherwise cartilage was healthy and viable with good normal range of motion. Proper resection of the os trigonum was confirmed with intra operative fluoroscopy, images were saved. The surgical site was stable and remaining tissues were healthy and viable. The site was flushed out with copious amounts of normal saline solution. The subcutaneous tissue was reapproximated using 3-0 Vicryl. The skin was reapproximated using 4-0 Monocryl. A temporary dressing of gauze and Coban was applied. The pneumatic tourniquet was deflated at 30 minutes, there was immediately return of warmth and perfusion to the foot and ankle with CFT < 2 seconds to all toes. The patient was carefully repositioned in the supine position. The left foot and ankle were again scrubbed, prepped, draped in the usual aseptic fashion. The patient's left foot/ankle was exsanguinated using an Esmarch bandage and was elevated; the thigh pneumatic tourniquet was inflated to 350mmHg. Left tarsal tunnel decompression: Using a #15 scalpel blade a curvilinear incision was made overlying the tarsal tunnel. Careful dissection was completed down to the flexor retinaculum, which was identified and was released, exposing the tarsal tunnel. Careful dissection was completed down to the tibial nerve. The tibial nerve was visualized, along with its branches of the medial and lateral plantar nerves and medial calcaneal nerve, in which it was noted these branches occurred at the central to distal aspect of the tarsal tunnel. It was noted there were significant adhesions around the tibial nerve as well as to the aforementioned branches at the level of the tarsal tunnel, these were identified and carefully released. There was noted to be a large soft tissue mass cyst, consistent with a ganglion or synovial cyst, deep within the tarsal tunnel and wrapped around the tibial nerve. There was clear gel fluid within the cyst. The cyst was carefully freed from the tibial nerve, and it was excised, it appeared to be coming from the medial subtalar joint. There was noted to a large varicose vein impinging on the tibial nerve at the central aspect of the tarsal tunnel, which was carefully tied off using Vicryl ties and was cauterized and removed. Also of note, at the level of the central aspect of the tarsal tunnel the tibial nerve appeared significantly enlarged, yellow with a significant amount of fatty nonviable tissue around it, the tibial nerve appeared to be quite inflamed at this level. The posterior artery and vein were coursing over the top of the tibial nerve. This were freed up, being sure not to injure this neurovascular bundle. The surgical site was flushed out with copious amounts of normal saline solution. The rest of the tissues at the surgical site appeared healthy and viable. The flexor retinaculum was not reapproximated together to help prevent further impingement/entrapment of the tibial nerve and associated branches. Of note, the removed tissue (including the cyst) was all sent to pathology for further evaluation. The subcutaneous tissue was reapproximated using 3-0 Vicryl and skin reapproximated using 4-0 Monocryl. Left plantar fasciotomy: Attention was directed to the plantar fascia. A skin incision was made to the medial hindfoot at the level of the origin of the plantar fascia on the inferior calcaneus. Careful dissection was completed down through the subcutaneous tissue layer. A plane was created superiorly and inferiorly around the plantar fascia. There was significant thickening and fibrosis of the plantar fascia consistent with plantar fasciitis. The medial 50% of the plantar fascia was released via a plantar fasciotomy. There was no noted infracalcaneal spur, confirmed using intraoperative fluoroscopy. The site was flushed out with copious amounts of normal saline solution. The skin was reapproximated using 4-0 Nylon. An additional 10mL of local nerve block was completed around the surgical site for post operative pain control using 0.5% Bupivacaine plain to aid with post operative pain control.The skin incision edges were painted with Cavilon, and Steri-strips were applied across the sutured skin incision site of the tarsal tunnel. The pneumatic tourniquet was deflated at 90 minutes, there was immediate return of warmth and perfusion to the lower extremity. Temperature was noted, with CFT < 2 seconds to all toes. A dressing was applied which consisted of Betadine soaked Adaptic, 4x4 gauze, Kerlix and lucie bandage. All vital structures were properly identified and protected as necessary throughout the above procedure. The patient tolerated the above operative procedures well, and the anesthesia well with no complications. Post operative orders were placed. Post operative instructions were reviewed with patient as well as with her family () who was here with her today. Patient to remain nonweightbearing to the left foot/ankle at all times, keep the foot elevated at least 50 minutes of every hour, keep dressing/splint clean, dry and intact. A prescription for Vicodin 5mg/300mg tabs; 1-2 tabs PO q 6 hours PRN pain was given for post operative pain control (confirmed with patient she is not allergic to acetaminophen). Also the patient has been prescribed Lovenox 40mg once daily subcutaneous due to her risk of blood clot. The patient to follow up with me in 1 week, sooner if needed. Grafts/Implants Used: None - Complications None
--- NOTE | 2021-01-08 16:35 | RAD_ITS ---
STUDY: X-RAY - LEFT FOOT CLINICAL: Female, 40 years old. post op TECHNIQUE: 3 view(s) of the foot. COMPARISON: 08/25/2020 FINDINGS: Normal talus, calcaneus, and tarsal bones. Interval removal of the os trigonum. Normal visualized subtalar, talonavicular, calcaneocuboid, tarsal and tarsometatarsal articulations. Normal metatarsi. Normal metatarsophalangeal joint of the great toe. Normal tibial and fibular sesamoid bones. Normal interphalangeal joint of the great toe. Normal phalanges of the great toe. Normal second through fifth metatarsophalangeal joints. Normal interphalangeal joints and phalanges of the lesser toes. The soft tissue structures are unremarkable. RAD/Foot min 3 Views IMPRESSION: Normal x-ray examination of the foot. Interval removal os trigonum. Electronically Signed: Fernando Dean MD at 7:53 EDT Tel , Service support ,
[2021-01-08 16:45] VITALS: BP 119/70; BP 119/78; PULSE 61; RESP 16; O2SAT 100
[2021-01-08 17:00] VITALS: BP 101/63; BP 119/78; PULSE 60; RESP 16; O2SAT 95
[2021-01-08 17:11] VITALS: BP 101/66; BP 119/78; PULSE 60; RESP 16; TEMP 35.9; O2SAT 93
[2021-01-08 17:52] VITALS: BP 116/67; BP 119/78; PULSE 64; RESP 16; TEMP 36.1; O2SAT 94
== END 2021-01-08 18:02 | disposition home or self-care (01) ==
LOC: SDC 10:29 → AC 10:30
PROVIDERS: PCP Family Medicine; Referring Provider Podiatrist; Visit Provider Podiatrist
PROC: (CPT 28008; principal; 2021-01-08 11:45)
DX: G57.52 Tarsal tunnel syndrome, left lower limb (principal); M25.872 Other specified joint disorders, left ankle and foot; M72.2 Plantar fascial fibromatosis; Q68.8 Other specified congenital musculoskeletal deformities; D68.51 Activated protein C resistance; F41.1 Generalized anxiety disorder; K21.9 Gastro-esophageal reflux disease without esophagitis; D50.9 Iron deficiency anemia, unspecified
CPT/HCPCS: 01470; 27630; 28008; 28035; 73620; 73630; 76000; 88304; 88305; 88311; J7120; J2405

== ENCOUNTER → 2021-06-10 14:33 | Outpatient (CLI) | payer BC, SELFPAY | PROVIDERS: PCP Family Medicine; Visit Provider Family Medicine | DX: Z20.828 Contact with and (suspected) exposure to other viral communicable diseases (principal) | CPT/HCPCS: 87635; U0005; U0003 ==

== ENCOUNTER → 2021-06-30 14:49 | Outpatient (CLI) | payer BC, SELFPAY ==
--- NOTE | 2021-06-30 15:06 | VDUE_ITS ---
Reason For Study: SWELLING Left Proximal Left jugular vein is spontaneous, widely patent, phasic, with no intraluminal echogenicity noted. Left subclavian vein is spontaneous, widely patent, phasic, with no intraluminal echogenicity noted. Left Arm Left axillary vein is spontaneous, patent, phasic, competent, compressible and demonstrates augmentation. Left brachial vein is compressible. Left cephalic vein is compressible. Left basilic vein is compressible. Left Lower Arm Left radial vein is compressible. Left ulnar vein is compressible. VL/Venous Duplex US, Unilateral Interpretation Summary Deep veins of the left upper extremity are patent and compressible segmentally. There is no evidence of deep vein thrombosis. The superficial veins of the left upper extremity, the basilic and cephalic veins, are patent and compressible. There is no evidence of left upper extremit y superficial thrombophlebitis involving the veins imaged. Ordering Physician: Sujey Shaikh Referring Physician: Sujey Shaikh Performed By: Noreen Barraza, RDCS, RVT ?
[2021-06-30 17:02] LABS: ALB/GLOB Ratio 0.7 RATIO (0.9-2.4); AST(SGOT) 16 U/L (15-37); Alanine Aminotransfer ALT/SGPT 31 U/L (13-56); Albumin, Serum 2.9 g/dL (3.2-5.0); Alkaline Phosphatase 89 U/L (45-117); Anion Gap 6 (5-15); BUN 11 mg/dL (7-18); BUN/Creat Ratio 10.3 RATIO (10-20); Calcium,Total 8.8 mg/dL (8.5-10.1); Chloride 109 mmol/L (98-107); Creatinine, Serum 1.07 mg/dL (0.55-1.02); EST Glomerular Filtration Rate 60 mL/min (>60); Est Glom Filt Rate - Afr Amer 72 mL/min (>60); Free T3 2.6 pg/mL (2.18-3.98); Globulin 4.3 g/dL (2.2-4.2); Glucose 121 mg/dL (74-106); Potassium 3.5 mmol/L (3.5-5.1); Protein, Total 7.2 g/dL (6.4-8.2); Sodium Level 138 mmol/L (136-145); T4 Free Direct 0.98 ng/dL (0.76-1.46)
[2021-06-30 17:04] LABS: Absolute Lymphocyte Count 2.22 X10^3/uL (0.83-4.51); Absolute Neutrophil Count 6.9 X10^3/uL (2.0-7.7); Basophil# 0.02 X10^3/uL; Basophil% 0.2 % (0-1); Eosinophil# 0.15 X10^3/uL; Eosinophils% 1.5 % (0-5); Hematocrit 41.6 % (37-47); Hemoglobin 13.1 g/dL (12.0-15.0); Lymphocyte # 2.22 X10^3/ul (0.83-4.51); Lymphocyte % 22.6 % (19-41); Mean Corp Hgb Conc 31.5 g/dL (32-36); Mean Corpuscular Hgb 27.4 pg (27.0-32.0); Monocyte# 0.48 X10^3/uL; Monocyte% 4.9 % (0-10); NRBC Flagged by Analyzer 0 % (0-5); Neutrophil % 70.1 % (47-70); Platelet Count 267 K/mm3 (150-450); RBC Distribution Width CV 14.4 % (11.6-14.6); RBC Distribution Width SD 45.6 fl (35.1-43.9); Red Blood Count 4.78 M/mm3 (4.2-5.4); White Blood Count 9.8 K/mm3 (4.4-11.0)
[2021-06-30 17:15] LABS: D-Dimer Quantitative (DVT/PE) 0.57 FEU/ug/m (0.27-0.49)
[2021-06-30 17:19] LABS: Erythrocyte Sedimentation Rate 61 mm/hr (0-30)
== END ==
PROVIDERS: PCP Family Medicine; Referring Provider Family Medicine; Visit Provider Family Medicine
DX: R60.9 Edema, unspecified (principal); M79.602 Pain in left arm; E03.9 Hypothyroidism, unspecified; R53.83 Other fatigue; D50.9 Iron deficiency anemia, unspecified; Z51.81 Encounter for therapeutic drug level monitoring
CPT/HCPCS: 36415; 80053; 84439; 84443; 84481; 85025; 85379; 85652; 86140; 93971

== ENCOUNTER → 2021-07-19 07:54 | Outpatient (CLI) | payer BC, SELFPAY ==
--- NOTE | 2021-07-19 07:56 | ECHOD_ITS ---
Reason For Study: Edema Procedure This was a 2D Doppler, Color Flow transthoracic echocardiogram. Exam performed in department. Left Ventricle Normal LV size. Left ventricular systolic function is normal. The estimated ejection fraction is 60 %. Normal diastology for age. No regional wall motion abnormalities noted. Right Ventricle Normal RV size. Normal systolic function. Atria Normal left atrium. Normal right atrium. Mitral Valve Normal mitral valve. Tricuspid Valve Normal tricuspid valve. Mild tricuspid valve insufficiency. Pulmonary artery systolic pressure is 25 mmHg. Aortic Valve Trisinus/trileaflet aortic valve. Pulmonic Valve Normal pulmonic valve. Great Vessels Normal aortic root. The pulmonary artery is normal size. Normal inferior vena cava. Pericardium/Pleural No pericardial effusion. MMode/2D Measurements & Calculations LVIDd: 5.1 cm IVSd: 0.94 cm Ao root diam: 2.7 cm LVIDs: 3.1 cm LVPWd: 0.92 cm RVDd: 3.2 cm FS: 39.6 % LAV(MOD-bp): 38.9 ml LVAd ap4: 24.7 cm2 SV(MOD-sp4): 43.5 ml LAV(MOD-bp) Indexed: 16.2 ml/m2 LVLd ap4: 7.0 cm LAV(MOD-sp2): 33.3 ml EDV(MOD-sp4): 70.0 ml LAV(MOD-sp4): 43.4 ml EDV(sp4-el): 73.5 ml LVAs ap4: 13.5 cm2 LVLs ap4: 5.7 cm ESV(MOD-sp4): 26.6 ml ESV(sp4-el): 27.1 ml EF(MOD-sp4): 62.1 % EF(sp4-el): 63.2 % SV(sp4-el): 46.4 ml LA A4 area: 16.5 cm2 LA dimension(2D): 4.3 cm RA A4 area: 13.1 cm2 Doppler Measurements & Calculations MV E max liban: 79.4 cm/sec Lat Peak E' Liban: 12.3 cm/sec Med Peak E' Liban: 6.6 cm/sec MV A max liban: 54.8 cm/sec E/E' lat: 6.4 E/E' med: 12.0 MV E/A: 1.4 Ao V2 max: 127.8 cm/sec LV V1 max: 101.0 cm/sec PA V2 max: 108.8 cm/sec Ao max P.5 mmHg LV V1 max P.1 mmHg Ao V2 mean: 89.4 cm/sec Ao mean P.5 mmHg Ao V2 VTI: 26.1 cm TR max liban: 231.5 cm/sec TR max P.4 mmHg ECHO/Echo Complete Interpretation Summary Normal LV size. Left ventricular systolic function is normal. The estimated ejection fraction is 60 %. Structurally normal valves. Ordering Physician: Sujey Shaikh Referring Physician: Sujey Shaikh Performed By: Shani Clark, SKY, RVT
== END ==
PROVIDERS: PCP Family Medicine; Referring Provider Family Medicine; Visit Provider Family Medicine
DX: R06.00 Dyspnea, unspecified (principal); R60.9 Edema, unspecified
CPT/HCPCS: 93306

== ENCOUNTER 2021-09-06 14:54 | Emergency (ER) | payer BC, SELFPAY ==
[2021-09-06 14:55] VITALS: BP 140/84; PULSE 90; RESP 18; TEMP 35.8; O2SAT 97; BMI 45.3
--- NOTE | 2021-09-06 15:00 | VDLE_ITS ---
Reason For Study: PAIN Procedure LEFT Exam performed portable in ED. GSV is normal. The exam was abbreviated due to the COVID 19 CFV is compressible, spontaneous, phasic, protocol. competent, and demonstrates normal The study was technically difficult. augmentation. A preliminary report was called and/or faxed FV is compressible, spontaneous, phasic, to ED. competent and demonstrates normal augmentation. POP V is compressible, spontaneous, phasic, competent and demonstrates normal augmentation. T/P Trunk is compressible. PTV is compressible. LT PerV is compressible. VL/Venous Duplex US, Unilateral Interpretation Summary There is no evidence of left lower extremity deep vein thrombosis. Left great s aphenous vein appears patent and compressible segmentally. Technically difficult exam. Covid 19 protocol utilized Ordering Physician: Gregor Romo Referring Physician: ALEIDA GA Performed By: Noreen Barraza RDCS, RVT
--- NOTE | 2021-09-06 16:26 | EDS_ITS ---
HPI History of Present Illness Chief Complaint: Lower Extremity Injury Informant: patient Narrative Narrative: 41-year-old female presents the emergency room with progressive pain of the left lower leg. She states that it is to the point where it is extremely painful for her to sit walk really do anything with the leg. She has a history of factor V Leiden so she was concerned she might have a blood clot. She denies any swelling. No trauma. No recent immobilizations. She has the biggest source of her pain is right behind the knee and the pain goes down towards her foot. [facility] Medical History (Updated 09/06/21 @ 16:[address] Gregor Romo, ) Anxiety Factor 5 Leiden mutation, heterozygous GERD (gastroesophageal reflux disease) History of PCOS Hx of migraines Seasonal allergies Home Medications calcium carbonate-vitamin D3 1 tab PO DAILY@0800 03/11/14 [History Last Taken 03/12/14 20:00 1 TAB] folic acid 0.4 mg PO DAILY@0800 03/11/14 [History Last Taken 03/12/14 20:00 0.4 MG] multivitamin with folic acid 1 tab PO DAILY 03/11/14 [History Last Taken 03/12/14 20:00 1 TABLET] diclofenac epolamine 1 patch TOPICAL PRN PRN 04/12/18 [History Last Taken Unknown] lorazepam 1 tab PO DAILY PRN 04/12/18 [History Last Taken Unknown] montelukast 4 mg PO DAILY 04/12/18 [History Last Taken Unknown] pantoprazole 40 mg PO DAILY 04/12/18 [History Last Taken 01/08/21] sertraline 200 mg PO DAILY 04/12/18 [History Last Taken Unknown] topiramate 50 mg PO DAILY 04/12/18 [History Last Taken Unknown] magnesium oxide 500 mg capsule 500 mg PO DAILY 11/06/20 [History Last Taken Unknown] vitamin B complex 1 cap PO DAILY 11/06/20 [History Last Taken Unknown] albuterol sulfate 1 - 2 puff INHALATION Q6H PRN PRN 12/25/20 [History Last Taken Unknown] Allergy/AdvReac Type Severity Reaction Status Date / Time buspirone [From BuSpar] Allergy Chest Verified 09/06/21 14:58 tightness ciprofloxacin [From Cipro] Allergy Hives Verified 09/06/21 14:58 ciprofloxacin HCl Allergy Hives Verified 09/06/21 14:58 [From Cipro] dichloralphenazone Allergy Chest Verified 09/06/21 14:58 [From Midrin] tightness isometheptene mucate Allergy Chest Verified 09/06/21 14:58 [From Midrin] tightness nortriptyline [Nortriptyline] Allergy Chest Verified 09/06/21 14:58 tightness Family History Father Factor 5 Leiden mutation, heterozygous Brother Factor 5 Leiden mutation, heterozygous Daughter Factor 5 Leiden mutation, heterozygous Surgical History delivery delivered H/O lithotripsy History of carpal tunnel surgery History of cholecystectomy History of [facility] Social History Smoking Status: Never smoker alcohol intake: current details: social substance use type: does not use caffeine: No what type of physical activity do you participate in: walking frequency: 1-2 times per week seatbelt use: always do you feel safe at home: Yes additional social history: [employer]- [employer] 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 ROS ED Constitutional Constitutional ED: Denies chills, fever(s) or weight loss Eyes Eyes: Denies change in vision or diplopia ENT ENT ED: Denies ear pain, rhinorrhea or sore throat Cardiovascular Cardiovascular: Denies chest pain, orthopnea, palpitations or racing heartbeat Respiratory/Chest Respiratory/Chest: Denies cough, dyspnea or orthopnea Gastrointestinal Gastrointestinal: Denies abdominal pain, diarrhea, nausea or vomiting Genitourinary Genitourinary ED: Denies dysuria, hematuria or urinary frequency Musculoskeletal Musculoskeletal: Reports other Details: Left leg pain ; Denies arthralgias or myalgias Integumentary Denies abscess or rash Neurologic Neurologic: Denies headache(s) or weakness Psychiatric Psychiatric: Denies anxiety, depression, suicidal ideation or suicidal thoughts Endocrine Endocrinology: Denies polydipsia, polyphagia or polyuria Allergic/Immunologic Allergic/Immunologic ED: Denies mouth swelling, tongue swelling or urticaria EXAM Physical Exam Const Vital Signs: 09/06/21 14:55 Temperature 96.5 F L Temperature Source Temporal Pulse Rate 90 Respiratory Rate 18 Blood Pressure 140/84 H Blood Pressure Mean 102 Pulse Ox 97 Oxygen Delivery Method Room Air Positive well nourished, well developed and obese General Appearance ED: well developed Nutritional Appearance: obese HEENT Reports normocephalic, head/scalp atraumatic, TM's clear and moist mucous membranes Negative for trauma Tympanic Membrane ED: Yes TM's clear Eyes PERRL and EOMs intact bilaterally Neck no lymphadenopathy, supple and no JVD Resp normal respiratory effort and clear to auscultation bilaterally Cardio regular rate, regular rhythm and no murmurs GI normal to inspection, nondistended, normoactive bowel sounds and non-tender Palpation: soft Back/Spine no CVA tenderness and normal ROM Extremity Extremity Narrative: Patient has tenderness to palpation of the calf musculature in the popliteal fossa. I do not appreciate hematoma or any swelling. Neurovascular the patient appears intact. The coloring of the leg and the foot appears normal. There is no swelling compared to the right. No rashes. General Extremety ED: Negative for edema General Extremity: Negative for edema Neuro oriented x3 and CN's II-XII intact bilaterally Sensorium / Orientation: alert Motor Exam: strength 5/5 throughout Psych mental status grossly normal Mood & Affect: Negative for depressed or tearful Skin no rashes or lesions noted and no wounds MDM MDM MDM Narrative Medical decision making narrative: Duplex ultrasound was negative for DVT. I do not suspect that this is a bony issue. I can reproduce the pain by palpating her musculature. However recommend heat as needed crutches and anti- inflammatories. Patient to follow-up with her doctor if not improving Discharge Plan Triage Chief Complaint: Lower Extremity Injury ED Provider: Gregor Romo Dx/Rx/DC Orders Clinical Impression: Acute pain of left lower extremity Instructions: ED Pain, Acute, Uncertain Cause Prescriptions: No Action vitamin B complex Capsule 1 cap PO DAILY RF: 0 magnesium oxide 500 mg capsule 500 mg PO DAILY RF: 0 folic acid 0.4 MG tablet 0.4 mg PO DAILY@0800 RF: 0 multivitamin with folic acid 1 TABLET tablet 1 tab PO DAILY RF: 0 calcium carbonate-vitamin D3 1 TAB tablet 1 tab PO DAILY@0800 RF: 0 montelukast 4 MG tablet,chewable 4 mg PO DAILY RF: 0 topiramate 25 tablet 50 mg PO DAILY RF: 0 pantoprazole 40 MG tablet 40 mg PO DAILY RF: 0 lorazepam 1 tablet 1 tab PO DAILY PRN (Reason: Anxiety) RF: 0 sertraline 50 MG tablet 200 mg PO DAILY RF: 0 diclofenac epolamine 1.3 patch 1 patch TOPICAL PRN PRN (Reason: Pain) RF: 0 albuterol sulfate 1 PUFF inhaler 1 - 2 puff INHALATION Q6H PRN PRN (Reason: Allergies) RF: 0 Primary Care Provider: Sujey Shaikh Referrals: Sujey Shaikh DO [Primary Care Provider] - 1 Week Disposition Disposition: Home, Self Care
[2021-09-06 16:41] VITALS: PULSE 68; RESP 16; O2SAT 97
== END 2021-09-06 16:52 | disposition home or self-care (01) ==
LOC: ED 16:40
PROVIDERS: Emergency Provider Emergency Medicine; PCP Family Medicine
DX: M79.662 Pain in left lower leg (principal); M79.605 Pain in left leg; E66.9 Obesity, unspecified; K21.9 Gastro-esophageal reflux disease without esophagitis; D68.51 Activated protein C resistance; E28.2 Polycystic ovarian syndrome
CPT/HCPCS: 93971; 99282

== ENCOUNTER → 2021-09-30 10:27 | Outpatient (CLI) | payer BC, SELFPAY ==
[2021-09-30 12:22] LABS: Absolute Lymphocyte Count 2.14 X10^3/uL (0.83-4.51); Absolute Neutrophil Count 5.9 X10^3/uL (2.0-7.7); Basophil# 0.04 X10^3/uL; Basophil% 0.5 % (0-1); Eosinophil# 0.21 X10^3/uL; Eosinophils% 2.4 % (0-5); Hematocrit 42.4 % (37-47); Hemoglobin 13.7 g/dL (12.0-15.0); Lymphocyte # 2.14 X10^3/ul (0.83-4.51); Lymphocyte % 24.5 % (19-41); Mean Corp Hgb Conc 32.3 g/dL (32-36); Mean Corpuscular Volume 83.5 fL (81-99); Mean Platelet Vol. 11.2 fl (6.2-12.0); Monocyte% 4.6 % (0-10); NRBC Flagged by Analyzer 0 % (0-5); Neutrophil % 67.4 % (47-70); Platelet Count 254 K/mm3 (150-450); RBC Distribution Width CV 14.6 % (11.6-14.6); RBC Distribution Width SD 44.3 fl (35.1-43.9); Red Blood Count 5.08 M/mm3 (4.2-5.4); White Blood Count 8.7 K/mm3 (4.4-11.0)
[2021-09-30 13:12] LABS: ALB/GLOB Ratio 0.7 RATIO (0.9-2.4); AST(SGOT) 21 U/L (15-37); Alanine Aminotransfer ALT/SGPT 31 U/L (13-56); Alkaline Phosphatase 99 U/L (45-117); Anion Gap 8 (5-15); BUN 11 mg/dL (7-18); BUN/Creat Ratio 10.8 RATIO (10-20); Calcium,Total 8.9 mg/dL (8.5-10.1); Chloride 111 mmol/L (98-107); Cholesterol 277 mg/dL (200); Creatinine, Serum 1.02 mg/dL (0.55-1.02); EST Glomerular Filtration Rate 63 mL/min (>60); Est Glom Filt Rate - Afr Amer 76 mL/min (>60); Ferritin 171 ng/mL (8-252); Globulin 4.5 g/dL (2.2-4.2); Glucose 98 mg/dL (74-106); High Density Lipoprotein 35 mg/dL; Iron 51 ug/dL (50-170); Protein, Total 7.5 g/dL (6.4-8.2); Sodium Level 139 mmol/L (136-145); Triglycerides 430 mg/dL
[2021-09-30 14:13] LABS: Hemoglobin A1c 5.4 % (3.8-5.6)
== END ==
PROVIDERS: PCP Family Medicine; Referring Provider Family Medicine; Visit Provider Family Medicine
DX: R53.83 Other fatigue (principal); D50.9 Iron deficiency anemia, unspecified; R73.01 Impaired fasting glucose; E78.5 Hyperlipidemia, unspecified; Z51.81 Encounter for therapeutic drug level monitoring
CPT/HCPCS: 36415; 80053; 80061; 82728; 83036; 83540; 85025

== ENCOUNTER 2021-12-29 10:16 | Outpatient (CLI) | payer BC, SELFPAY ==
--- NOTE | 2021-12-29 10:18 | BI_ITS ---
MAMMOGRAPHY - BILATERAL SCREENING REASON FOR EXAM: Female, 41 years old. Routine annual screening examination. PERTINENT HISTORY: Aunt with breast cancer. TECHNIQUE: Digital bilateral breast teresita (3D mammographic acquisition) in the CC and MLO projections. 2-D mediolateral oblique (MLO) and craniocaudad (CC) views of both breasts were obtained. CAD: Full Field Digital Mammography with Computer Added Detection was performed. COMPARISON: Comparison is made with prior study dated 09/28/2020 and 09/24/2019. FINDINGS: Breast Composition: There are scattered areas of fibroglandular density. There are no dominant masses or suspicious calcifications. Stable small benign-appearing bilateral axillary lymph nodes. No other significant abnormalities are identified. There has been no significant change since the prior study. BI/SCRN MAMM (CAD)W/TERESITA BILAT IMPRESSION: Stable bilateral screening mammogram. Yearly follow-up mammogram recommended. (A) ASSESSMENT CATEGORY: BIRADS Category 2: Benign. A letter regarding these results will be sent to the patient by the facility within 30 days. Approximately 10% of breast cancers are not detected by mammography. A normal mammogram should not delay biopsy of a clinically suspicious abnormality. [id number] Electronically Signed: Nile Cm MD at 12:17 EDT ,
== END 2021-12-29 23:59 | disposition home or self-care (01) ==
LOC: OPBI 10:17
PROVIDERS: PCP Family Medicine; Visit Provider Obstetrics & Gynecology
DX: Z12.31 Encounter for screening mammogram for malignant neoplasm of breast (principal)
CPT/HCPCS: 77063; 77067

== ENCOUNTER → 2022-03-09 | Outpatient (CLI) | payer BC, SELFPAY ==
[2022-03-09 15:16] LABS: Absolute Lymphocyte Count 2.63 X10^3/uL (0.83-4.51); Absolute Neutrophil Count 7.3 X10^3/uL (2.0-7.7); Basophil# 0.05 X10^3/uL; Basophil% 0.5 % (0-1); Eosinophil# 0.16 X10^3/uL; Eosinophils% 1.5 % (0-5); Hematocrit 40.9 % (37-47); Hemoglobin 13.3 g/dL (12.0-15.0); Lymphocyte # 2.63 X10^3/ul (0.83-4.51); Lymphocyte % 24.6 % (19-41); Mean Corp Hgb Conc 32.5 g/dL (32-36); Mean Corpuscular Hgb 27.3 pg (27.0-32.0); Mean Corpuscular Volume 83.8 fL (81-99); Mean Platelet Vol. 10.8 fl (6.2-12.0); Monocyte# 0.48 X10^3/uL; Monocyte% 4.5 % (0-10); NRBC Flagged by Analyzer 0 % (0-5); Neutrophil # 7.31 X10^3/uL (2.7-7.7); Neutrophil % 68.2 % (47-70); Platelet Count 269 K/mm3 (150-450); RBC Distribution Width CV 14.9 % (11.6-14.6); RBC Distribution Width SD 44.7 fl (35.1-43.9); Red Blood Count 4.88 M/mm3 (4.2-5.4); White Blood Count 10.7 K/mm3 (4.4-11.0)
[2022-03-09 15:42] LABS: Ferritin 102 ng/mL (8-252); Free T3 2.8 pg/mL (2.18-3.98); Iron 45 ug/dL (50-170); Thyroid Stim Hormone (TSH) 2.04 uIU/mL (0.358-3.74)
[2022-03-09 15:50] LABS: Vitamin B12 > 2000 pg/mL (211-911); Vitamin D,25 Hydroxy 31.3 ng/mL
[2022-03-14 11:26] LABS: Thyroid Peroxidase AB < 8 IU/mL (0-34)
[2022-03-14 19:28] LABS: Thyroglobulin Antibody < 1.0 IU/mL (0.0-0.9)
== END | disposition home or self-care (01) ==
LOC: MTLAB 13:25
PROVIDERS: PCP Family Medicine; Referring Provider Family Medicine; Visit Provider Family Medicine
DX: E03.9 Hypothyroidism, unspecified (principal); D50.9 Iron deficiency anemia, unspecified; R53.83 Other fatigue; E53.8 Deficiency of other specified B group vitamins; E55.9 Vitamin D deficiency, unspecified
CPT/HCPCS: 36415; 82306; 82607; 82728; 83540; 84439; 84443; 84481; 85025; 86376; 86800

== ENCOUNTER → 2022-06-13 | Outpatient (CLI) | payer BC, SELFPAY ==
[2022-06-13 12:20] LABS: Absolute Lymphocyte Count 2.25 X10^3/uL (0.83-4.51); Absolute Neutrophil Count 7.1 X10^3/uL (2.0-7.7); Basophil# 0.03 X10^3/uL; Basophil% 0.3 % (0-1); Eosinophil# 0.13 X10^3/uL; Eosinophils% 1.3 % (0-5); Hematocrit 43.1 % (37-47); Hemoglobin 14.2 g/dL (12.0-15.0); Lymphocyte # 2.25 X10^3/ul (0.83-4.51); Lymphocyte % 22.3 % (19-41); Mean Corp Hgb Conc 32.9 g/dL (32-36); Mean Corpuscular Hgb 28.6 pg (27.0-32.0); Mean Corpuscular Volume 86.7 fL (81-99); Mean Platelet Vol. 10.9 fl (6.2-12.0); Monocyte# 0.57 X10^3/uL; Monocyte% 5.7 % (0-10); NRBC Flagged by Analyzer 0 % (0-5); Neutrophil # 7.05 X10^3/uL (2.7-7.7); Platelet Count 278 K/mm3 (150-450); RBC Distribution Width CV 14.8 % (11.6-14.6); RBC Distribution Width SD 46.7 fl (35.1-43.9); Red Blood Count 4.97 M/mm3 (4.2-5.4); White Blood Count 10.1 K/mm3 (4.4-11.0)
[2022-06-13 15:34] LABS: ALB/GLOB Ratio 0.7 RATIO (0.9-2.4); AST(SGOT) 15 U/L (15-37); Alanine Aminotransfer ALT/SGPT 29 U/L (13-56); Albumin, Serum 3.1 g/dL (3.2-5.0); Alkaline Phosphatase 97 U/L (45-117); Amylase 36 U/L (25-115); Anion Gap 11 (5-15); BUN 11 mg/dL (7-18); BUN/Creat Ratio 10.2 RATIO (10-20); Chloride 106 mmol/L (98-107); Creatinine, Serum 1.08 mg/dL (0.55-1.02); EST Glomerular Filtration Rate 59 mL/min (>60); Est Glom Filt Rate - Afr Amer 71 mL/min (>60); Globulin 4.4 g/dL (2.2-4.2); Glucose 102 mg/dL (74-106); Lipase 160 U/L (73-393); Potassium 4.1 mmol/L (3.5-5.1); Protein, Total 7.5 g/dL (6.4-8.2); Sodium Level 138 mmol/L (136-145)
== END | disposition home or self-care (01) ==
LOC: MTLAB 10:57
PROVIDERS: PCP Family Medicine; Referring Provider Family Medicine; Visit Provider Family Medicine
DX: R10.9 Unspecified abdominal pain (principal)
CPT/HCPCS: 36415; 80053; 82150; 83690; 85025

== ENCOUNTER → 2022-12-09 | Outpatient (CLI) | payer BC, SELFPAY ==
--- NOTE | 2022-12-09 17:19 | MRI_ITS ---
EXAM: MR LEFT LOWER EXTREMITY WITHOUT INTRAVENOUS CONTRAST, ANKLE CLINICAL INDICATION: ACHILLES TENDONITIS TECHNIQUE: Multiplanar and multisequence MR images of the left ankle without intravenous contrast. This report was created using Mo[employer] report generation technology. COMPARISON: None. FINDINGS: LIGAMENTS: ANTERIOR TALOFIBULAR: Unremarkable. Intact. POSTERIOR TALOFIBULAR: Unremarkable. Intact. ANTERIOR TIBIOFIBULAR: Unremarkable. Intact. POSTERIOR TIBIOFIBULAR: Unremarkable. Intact. CALCANEOFIBULAR: Unremarkable. Intact. DELTOID: Thickened appearance with normal signal of the deltoid ligamentous fibers suggest an old injury. SPRING: Unremarkable. Intact. LISFRANC: Unremarkable. Intact. TENDONS: ACHILLES: Unremarkable. Intact. FLEXOR: Unremarkable. Intact. EXTENSOR: Unremarkable. Intact. PERONEAL: Unremarkable. Intact. TIBIALIS ANTERIOR: Unremarkable. Intact. TIBIALIS POSTERIOR: Unremarkable. Intact. MUSCLES: Unremarkable. Normal bulk and signal. FLUID: Tiny amount of fluid in the retrocalcaneal bursa may be physiologic. SINUS TARSI: Unremarkable. Normal fat in the sinus tarsi. TARSAL TUNNEL: Unremarkable. PLANTAR FASCIA: Thickening of the central cord of plantar aponeurosis. No evidence of active plantar fasciitis. CARTILAGE: Unremarkable. No osteochondral lesion. Articular cartilage intact. BONES/JOINTS: Unremarkable. No fracture or marrow edema. No osteochondral lesions at the tibiotalar articulation. OTHER SOFT TISSUES: Unremarkable. MRI/Lower Ext Joint Only (Routine) IMPRESSION: No evidence for Achilles tendinitis or tear. No other significant internal derangement. Ancillary findings as above. Electronically Signed: Chivo Domínguez MD at 0:02 [facility] Reading Location ID and State: [id number] Tel , Service support ,
== END | disposition home or self-care (01) ==
PROVIDERS: PCP Family Medicine; Referring Provider Podiatrist; Visit Provider Podiatrist
DX: M76.60 Achilles tendinitis, unspecified leg (principal)
CPT/HCPCS: 73721

== ENCOUNTER → 2023-05-05 | Outpatient (CLI) | payer BC, SELFPAY ==
[2023-05-05 10:00] LABS: Absolute Lymphocyte Count 2.49 X10^3/uL (0.83-4.51); Absolute Neutrophil Count 5.2 X10^3/uL (2.0-7.7); Basophil# 0.04 X10^3/uL; Basophil% 0.5 % (0-1); Eosinophil# 0.14 X10^3/uL; Eosinophils% 1.7 % (0-5); Hematocrit 40.7 % (37-47); Hemoglobin 12.9 g/dL (12.0-15.0); Lymphocyte # 2.49 X10^3/ul (0.83-4.51); Mean Corp Hgb Conc 31.7 g/dL (32-36); Mean Corpuscular Hgb 28.1 pg (27.0-32.0); Mean Corpuscular Volume 88.7 fL (81-99); Mean Platelet Vol. 10.6 fl (6.2-12.0); Monocyte# 0.44 X10^3/uL; Monocyte% 5.3 % (0-10); NRBC Flagged by Analyzer 0 % (0-5); Neutrophil # 5.16 X10^3/uL (2.7-7.7); Neutrophil % 62.1 % (47-70); Platelet Count 250 K/mm3 (150-450); RBC Distribution Width CV 13.8 % (11.6-14.6); RBC Distribution Width SD 44.4 fl (35.1-43.9); Red Blood Count 4.59 M/mm3 (4.2-5.4); White Blood Count 8.3 K/mm3 (4.4-11.0)
[2023-05-05 10:26] LABS: ALB/GLOB Ratio 0.6 RATIO (0.9-2.4); AST(SGOT) 14 U/L (15-37); Alanine Aminotransfer ALT/SGPT 27 U/L (13-56); Albumin, Serum 2.7 g/dL (3.2-5.0); Alkaline Phosphatase 85 U/L (45-117); Anion Gap 8 (5-15); BUN 9 mg/dL (7-18); BUN/Creat Ratio 7.8 RATIO (10-20); Calcium,Total 9.3 mg/dL (8.5-10.1); Chloride 109 mmol/L (98-107); Cholesterol 240 mg/dL (200); Creatinine, Serum 1.15 mg/dL (0.55-1.02); EST Glomerular Filtration Rate 54 mL/min (>60); Est Glom Filt Rate - Afr Amer 66 mL/min (>60); Ferritin 136 ng/mL (8-252); Free T3 2.8 pg/mL (2.18-3.98); Globulin 4.2 g/dL (2.2-4.2); Glucose 100 mg/dL (74-106); High Density Lipoprotein 31 mg/dL; Iron 54 ug/dL (50-170); Potassium 3.7 mmol/L (3.5-5.1); Protein, Total 6.9 g/dL (6.4-8.2); Sodium Level 137 mmol/L (136-145); T4 Free Direct 1.11 ng/dL (0.76-1.46); Thyroid Stim Hormone (TSH) 1.26 uIU/mL (0.358-3.74); Triglycerides 340 mg/dL; Very Low Density Lipoprotein 68 mg/dL (5-40)
== END | disposition home or self-care (01) ==
LOC: MTLAB 07:36
PROVIDERS: PCP Family Medicine; Referring Provider Family Medicine; Visit Provider Family Medicine
DX: Z51.81 Encounter for therapeutic drug level monitoring (principal); R53.83 Other fatigue; E78.5 Hyperlipidemia, unspecified; D50.9 Iron deficiency anemia, unspecified
CPT/HCPCS: 36415; 80053; 80061; 82728; 83540; 84439; 84443; 84481; 85025

== ENCOUNTER → 2023-05-08 | Outpatient (CLI) | payer BC, SELFPAY ==
--- NOTE | 2023-05-08 13:21 | BI_ITS ---
MAMMOGRAPHY - BILATERAL SCREENING REASON FOR EXAM: Female, 42 years old. Routine annual screening examination. PERTINENT HISTORY: Aunt with breast cancer. TECHNIQUE: Digital bilateral breast teresita (3D mammographic acquisition) in the CC and MLO projections. 2-D mediolateral oblique (MLO) and craniocaudad (CC) views of both breasts were obtained. CAD: Full Field Digital Mammography with Computer Added Detection was performed. COMPARISON: Comparison is made with prior study dated December 29, 2021 and September 28, 2020. FINDINGS: Breast Composition: There are scattered areas of fibroglandular density. There are no dominant masses or suspicious calcifications. Stable small benign-appearing bilateral axillary lymph nodes. No other significant abnormalities are identified. There has been no significant change since the prior study. BI/SCRN MAMM (CAD)W/TERESITA BILAT IMPRESSION: Stable bilateral screening mammogram. Yearly follow-up mammogram recommended. (A) ASSESSMENT CATEGORY: BIRADS Category 2: Benign. A letter regarding these results will be sent to the patient by the facility within 30 days. Approximately 10% of breast cancers are not detected by mammography. A normal mammogram should not delay biopsy of a clinically suspicious abnormality. [id number] Electronically Signed: Nile Cm MD at 14:57 EDT ,
== END | disposition home or self-care (01) ==
LOC: OPBI 13:19
PROVIDERS: PCP Family Medicine; Referring Provider Family Medicine; Visit Provider Family Medicine
DX: Z12.31 Encounter for screening mammogram for malignant neoplasm of breast (principal); Z80.3 Family history of malignant neoplasm of breast
CPT/HCPCS: 77063; 77067

== ENCOUNTER → 2023-05-18 | Outpatient (CLI) | payer BC, SELFPAY ==
--- NOTE | 2023-05-18 13:29 | CT_ITS ---
INDICATION: FACIAL PAIN EXAMINATION: CT FACIAL BONES - CT Maxillofacial W/O Contrast Injection TECHNIQUE: Helically acquired images were obtained of the facial bones. A radiation dose optimization technique was used for this scan. IV Contrast dosage and agent: None. RADIATION DOSAGE (If Supplied By Facility): CTDIvol = ( 33.06 ) mGy, DLP = ( 685.09 ) mGycm COMPARISON: FINDINGS: SOFT TISSUES: No focal subcutaneous swelling. No discrete fluid collections. VISUALIZED PARANASAL SINUSES: Clear. VISUALIZED MASTOID AIR CELLS: Clear. FACIAL BONES, MANDIBLE AND TMJs: No displaced facial bone fracture. No lytic or blastic abnormality. VISUALIZED DENTITION: No periodontal osseous erosion. ORBITAL CONTENTS: Both globes, extraocular muscles and retrobulbar fat appear unremarkable. CT/Sinus/Facial Bone IMPRESSION: Unremarkable CT of the facial bones. Electronically Signed: Justyn Rosas DO at 21:25 EDT ,
== END | disposition home or self-care (01) ==
PROVIDERS: PCP Family Medicine; Referring Provider Otolaryngology; Visit Provider Otolaryngology
DX: G50.1 Atypical facial pain (principal)
CPT/HCPCS: 70486

== ENCOUNTER 2023-05-27 14:30 | Inpatient (IN) | payer BC, SELFPAY ==
[2023-05-27] VITALS (13 sets, daily range): BP systolic 108–154; BP diastolic 74–108; PULSE 75–90; RESP 11–26; TEMP 36.3–36.9; O2SAT 98–100; BMI 47.6; BMI 47.5
--- NOTE | 2023-05-27 14:41 | RAD_ITS ---
STUDY: X-RAY CHEST REASON FOR EXAM: Female, 42 years old. chest pain TECHNIQUE: Single AP portable view of the chest. COMPARISON: None. FINDINGS: The lungs are clear and expanded. There is no demonstrated pleural abnormality. Normal size heart. Normal mediastinum and jonas. Normal visualized pulmonary arteries. Normal visualized aortic arch and descending thoracic aorta. Normal visualized thoracic spine. Normal visualized ribs, clavicles, and shoulders. There is no demonstrated abnormality of the visualized soft tissue structures of the upper abdomen. RAD/Chest 1 View (Portable) IMPRESSION: No evidence of acute cardiopulmonary process. Electronically Signed: Fran Hunt DO at 16:06 EDT ,
--- NOTE | 2023-05-27 14:41 | EKG12_ITS ---
Test Reason : REPEAT Blood Pressure : / mmHG Vent. Rate : 077 BPM Atrial Rate : 077 BPM P-R Int : 146 ms QRS Dur : 078 ms QT Int : 420 ms P-R-T Axes : 022 -23 056 degrees QTc Int : 475 ms Normal sinus rhythm Low voltage QRS Nonspecific ST and T wave abnormality Prolonged QT Abnormal ECG Confirmed by LEODAN CORDERO ([id number]), multimedia editor MARIJA LANGE ([id number]) on 06/09/2023 2:06:21 PM Referred By: Confirmed By:LEODAN CORDERO
--- NOTE | 2023-05-27 14:41 | ED.VIS.CHEST ---
HPI History of Present Illness Chief Complaint: Chest Pain Informant: patient Onset/Context/Timing Onset: Today Activity at onset: gradual Timing: Waxes and wanes Quality: Positive for Pressure Location: Substernal Current Severity: Mild Maximum Severity: Moderate Worsened By: Exertion, Movement of Arm and Movement of Torso Narrative Narrative: Patient presents secondary to chest pressure. Patient states that she was sitting reading a book around 1230 today when she got pressure in her chest and some pain in her right jaw. She took Ativan thinking she might be having a panic attack as she does have a history of this. She states usually her symptoms will subside within 15 minutes or so but they persisted today. [facility] Medical History Anxiety Cellulitis of left forearm Factor 5 Leiden mutation, heterozygous GERD (gastroesophageal reflux disease) History of PCOS Hx of migraines Seasonal allergies Home Medications calcium carbonate 600 mg-vitamin D3 20 mcg (800 unit) tablet 1 tab PO DAILY@0800 03/11/14 [History Last Taken 03/12/14 20:00 1 TAB] folic acid 400 mcg tablet 0.4 mg PO DAILY@0800 03/11/14 [History Last Taken 03/12/14 20:00 0.4 MG] multivitamin with folic acid 400 mcg tablet 1 tab PO DAILY 03/11/14 [History Last Taken 03/12/14 20:00 1 TABLET] diclofenac epolamine 1.3 % transdermal 12 hour patch 1 patch topical PRN PRN Pain 04/12/18 [History Last Taken Unknown] lorazepam 1 mg tablet 1 tab PO DAILY PRN Anxiety 04/12/18 [History Last Taken Unknown] montelukast 4 mg chewable tablet 4 mg PO DAILY 04/12/18 [History Last Taken Unknown] pantoprazole 40 mg tablet,delayed release 40 mg PO DAILY 04/12/18 [History Last Taken 01/08/21] topiramate 25 mg tablet 50 mg PO DAILY 04/12/18 [History Last Taken Unknown] magnesium oxide 500 mg capsule 500 mg PO DAILY 11/06/20 [History Last Taken Unknown] vitamin B complex 1 cap PO DAILY 11/06/20 [History Last Taken Unknown] albuterol sulfate 90 mcg/actuation aerosol inhaler 1 - 2 puff inhalation Q6H PRN PRN Allergies 12/25/20 [History Last Taken Unknown] fluoxetine 40 mg capsule 40 mg PO DAILY 11/07/22 [History Last Taken Unknown] benzonatate 200 mg capsule 200 mg PO TID PRN cough #20 caps 01/23/23 [Rx Last Taken Unknown] doxycycline hyclate 100 mg capsule 100 mg PO BID 01/23/23 [History Last Taken Unknown] methylprednisolone 4 mg tablets in a dose pack (Medrol ([place])) See Rx Instructions PO PER PKG DIR #21 tabs 01/23/23 [Rx Last Taken Unknown] Allergy/AdvReac Type Severity Reaction Status Date / Time buspirone [From BuSpar] Allergy Chest Verified 01/24/23 08:14 tightness ciprofloxacin [From Cipro] Allergy Hives Verified 01/24/23 08:14 ciprofloxacin HCl Allergy Hives Verified 01/24/23 08:14 [From Cipro] dichloralphenazone Allergy Chest Verified 01/24/23 08:14 [From Midrin] tightness isometheptene mucate Allergy Chest Verified 01/24/23 08:14 [From Midrin] tightness nortriptyline [Nortriptyline] Allergy Chest Verified 01/24/23 08:14 tightness Family History Father Factor 5 Leiden mutation, heterozygous Brother Factor 5 Leiden mutation, heterozygous Daughter Factor 5 Leiden mutation, heterozygous Surgical History delivery delivered H/O lithotripsy History of carpal tunnel surgery History of cholecystectomy History of [facility] Social History Smoking Status: Never smoker alcohol intake: current details: social substance use type: does not use caffeine: No what type of physical activity do you participate in: walking frequency: 1-2 times per week seatbelt use: always do you feel safe at home: Yes additional social history: [employer]- [employer] 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 ROS ED Constitutional Constitutional ED: Denies chills or fever(s) Eyes Eyes: Denies change in vision ENT ENT ED: Reports other Details: Right jaw pain ; Denies rhinorrhea or sore throat Cardiovascular Cardiovascular: Reports chest pain; Denies palpitations or racing heartbeat Respiratory/Chest Respiratory/Chest: Denies cough or dyspnea Gastrointestinal Gastrointestinal: Denies abdominal pain, nausea or vomiting Genitourinary Genitourinary ED: Denies difficulty urinating or dysuria Musculoskeletal Musculoskeletal: Denies back pain or extremity pain Integumentary Denies Abrasions or rash Neurologic Neurologic: Denies headache(s) or weakness Psychiatric Psychiatric: Denies anxiety or depression Allergic/Immunologic Allergic/Immunologic ED: Denies lip swelling or urticaria EXAM Physical Exam Const Vital Signs: 05/27/23 14:31 05/27/23 14:50 05/27/23 15:43 Temperature 98.1 F Temperature Source Temporal Pulse Rate 85 84 Respiratory Rate 16 26 H Blood Pressure 149/101 H 154/108 H Blood Pressure Mean 117 123 Pulse Ox 98 98 98 Oxygen Delivery Method Room Air Room Air Room Air Positive well nourished and well developed General Appearance ED: well developed HEENT Reports moist mucous membranes Eyes PERRL and EOMs intact bilaterally Chest Wall inspection of chest normal and palpation of chest normal Resp normal respiratory effort and clear to auscultation bilaterally Cardio regular rate and regular rhythm GI soft to palpation and non-tender Extremity normal to inspection Neuro oriented x3 and no sensory deficits noted Motor Exam: strength 5/5 throughout Psych mental status grossly normal Skin no rashes or lesions noted Heart Score History: Moderately Suspicious ECG: Normal Age: </= 45 years Risk Factors: 1 or 2 Risk Factors Troponin: >/=3 x Normal Limit Score: 4 MDM MDM MDM Narrative Medical decision making narrative: Patient placed on playground monitor. Aspirin given. EKG obtained to evaluate for cardiac arrhythmia/ischemia. Labwork obtained to evaluate for leukocytosis, anemia, and electrolyte derangement. Chest x-ray obtained to evaluate for acute lung pathology, cardiac size, or mediastinal abnormality. History & Record Review Discussion w/independent historian: Patient and Significant other Lab Data Attestation: I reviewed the patient's lab results. Labs: Laboratory Results - last 24 hr 05/27/23 14:45 WBC 10.5 RBC 4.66 Hgb 13.1 Hct 40.6 MCV 87.1 MCH 28.1 MCHC 32.3 RDW Std Deviation 43.7 RDW Coeff of Kortney 14.0 Plt Count 258 MPV 10.3 Immature Gran % (Auto) 0.900 Neut % (Auto) 70.8 H Lymph % (Auto) 21.2 [place] % (Auto) 5.6 Eos % (Auto) 1.1 Baso % (Auto) 0.4 Absolute Neuts (auto) 7.4 Absolute Lymphs (auto) 2.22 Nucleated RBC % 0 D-Dimer Quant (PE/DVT) 0.41 Sodium 137 Potassium 3.5 Chloride 108 H Carbon Dioxide 22.0 Anion Gap 7 BUN 11 Creatinine 1.00 Estim Creat Clear Calc 69.81 Est GFR (MDRD) Af Amer 77 Est GFR (MDRD) Non-Af 64 BUN/Creatinine Ratio 11.0 Glucose 115 H Calcium 8.7 Troponin I High Sens 504 H* Radiography Chest X-Ray - ED: 1 View, Read by ED Physician, Chronic Changes and No Infiltrates EKG Initial EKG: Attestation: I personally reviewed and interpreted this EKG as follows: Interpretation: Sinus Rhythm (Sinus at 90 with no acute ischemia. Nonspecific T wave flattening noted in the lateral precordial leads. QTc is 511.) Treatment and Re-Evaluation :: Patient given aspirin on arrival and placed on playground monitor. CBC reveals normal white count at 10.5 with a hemoglobin of 13.1. Chemistry studies unremarkable with normal renal function. D-dimer is normal at 0.41. Troponin is elevated at 504. Repeat evaluation patient complains of continued pressure with nausea. Repeat EKG will be obtained. Morphine and Phenergan are ordered. Repeat EKG per my interpretation reveals no STEMI. Sinus rhythm at 77 bpm is noted. She continues to have nonspecific T wave flattening the lateral precordial leads, although slightly improved. She has maybe 1/[address] depression in V4 and V5. I spoke to Jeremie, on-call for cardiology. He would like the patient placed on heparin and nitro drips. I will speak with hospitalist regarding admission. Discharge Plan Triage Chief Complaint: Chest Pain ED Provider: Maya Gomez Dx/Rx/DC Orders Clinical Impression: NSTEMI, initial episode of care Prescriptions: No Action vitamin B complex Capsule 1 cap PO DAILY magnesium oxide 500 mg capsule 500 mg PO DAILY fluoxetine 40 mg capsule 40 mg PO DAILY doxycycline hyclate 100 mg capsule 100 mg PO BID methylprednisolone [Medrol ([place])] 4 mg tablets,dose pack See Rx Instructions PO PER PKG DIR Qty: 21 0RF Rx Instructions: PO PER PKG DIR benzonatate 200 mg capsule 200 mg PO TID PRN (Reason: cough) Qty: 20 0RF folic acid 0.4 MG tablet 0.4 mg PO DAILY@0800 multivitamin with folic acid 1 TABLET tablet 1 tab PO DAILY calcium carbonate-vitamin D3 1 TAB tablet 1 tab PO DAILY@0800 montelukast 4 MG tablet,chewable 4 mg PO DAILY topiramate 25 tablet 50 mg PO DAILY Patient Comments: pantoprazole 40 MG tablet 40 mg PO DAILY lorazepam 1 tablet 1 tab PO DAILY PRN (Reason: Anxiety) Patient Comments: diclofenac epolamine 1.3 patch 1 patch TOPICAL PRN PRN (Reason: Pain) Patient Comments: albuterol sulfate 1 PUFF inhaler 1 - 2 puff INHALATION Q6H PRN PRN (Reason: Allergies) Primary Care Provider: Sujey Shaikh Referrals: Sujey Shaikh DO [Primary Care Provider] - Disposition Disposition: Acute Care Hospital [facility]
[2023-05-27] MEDS: Aspirin 81 MG TAB.CHEW 324 MG PO (14:51)
[2023-05-27 14:53] LABS: Absolute Lymphocyte Count 2.22 X10^3/uL (0.83-4.51); Absolute Neutrophil Count 7.4 X10^3/uL (2.0-7.7); Basophil# 0.04 X10^3/uL; Basophil% 0.4 % (0-1); Eosinophil# 0.11 X10^3/uL; Eosinophils% 1.1 % (0-5); Hematocrit 40.6 % (37-47); Hemoglobin 13.1 g/dL (12.0-15.0); Lymphocyte # 2.22 X10^3/ul (0.83-4.51); Lymphocyte % 21.2 % (19-41); Mean Corp Hgb Conc 32.3 g/dL (32-36); Mean Corpuscular Hgb 28.1 pg (27.0-32.0); Mean Corpuscular Volume 87.1 fL (81-99); Mean Platelet Vol. 10.3 fl (6.2-12.0); Monocyte# 0.59 X10^3/uL; Monocyte% 5.6 % (0-10); NRBC Flagged by Analyzer 0 % (0-5); Neutrophil % 70.8 % (47-70); Platelet Count 258 K/mm3 (150-450); RBC Distribution Width SD 43.7 fl (35.1-43.9); Red Blood Count 4.66 M/mm3 (4.2-5.4); White Blood Count 10.5 K/mm3 (4.4-11.0)
[2023-05-27 15:19] LABS: D-Dimer Quantitative (DVT/PE) 0.41 FEU/ug/m (0.27-0.49)
[2023-05-27 15:30] LABS: Anion Gap 7 (5-15); BUN 11 mg/dL (7-18); Calcium,Total 8.7 mg/dL (8.5-10.1); Chloride 108 mmol/L (98-107); EST Glomerular Filtration Rate 64 mL/min (>60); Est Glom Filt Rate - Afr Amer 77 mL/min (>60); Estimated Creatinine Clearance 69.81 ml/min; Glucose 115 mg/dL (74-106); Potassium 3.5 mmol/L (3.5-5.1); Sodium Level 137 mmol/L (136-145); Troponin-I HS (w/2H Reflex) 504 pg/mL (3.0-54.0)
[2023-05-27] MEDS: Morphine 4 MG/ML Syringe IV (15:38)
[2023-05-27] MEDS: proMETHazine 25 MG/ML Syringe 12.5 MG IM (15:38)
--- NOTE | 2023-05-27 15:58 | HP.PCM.HOS_ITS ---
HPI - General General Date of Admission: 05/27/23 Date of Service: 05/27/23 Chief Complaint: Chest pain HPI Narrative YVES SKINNER is a 42 F with history of factor V Leiden mutation, anxiety/depression, seasonal allergies and GERD who presented to [facility] ED on 05/27/2023 with chest pain. Patient seen at bedside, jamar pina present. Patient was quite tearful on my interview due to anxiety about her chest pain. She otherwise was sitting fairly comfortably in bed. Patient states that she began having chest pain while at rest earlier today. Has never had pain like this before. Denies any shortness of breath with exertion recently. States the chest pain felt more like a chest pressure in the center of her chest radiating up to her left jaw. Heparin and nitroglycerin drips had not been started yet when I arrived, but patient was already starting to feel somewhat improved. She denied any fevers or chills. Denies any nausea or vomiting. No other acute concerns. Vitals on admit notable for mild hypertension, otherwise unremarkable. Labs notable for elevated troponin of 504, otherwise unremarkable. Chest x-ray with no acute findings. [facility] Medical History Anxiety Cellulitis of left forearm Factor 5 Leiden mutation, heterozygous GERD (gastroesophageal reflux disease) History of PCOS Hx of migraines Seasonal allergies Home Medications calcium carbonate 600 mg-vitamin D3 20 mcg (800 unit) tablet 1 tab PO DAILY@0800 03/11/14 [History Last Taken 03/12/14 20:00 1 TAB] folic acid 400 mcg tablet 0.4 mg PO DAILY@0800 03/11/14 [History Last Taken 03/12/14 20:00 0.4 MG] multivitamin with folic acid 400 mcg tablet 1 tab PO DAILY 03/11/14 [History Last Taken 03/12/14 20:00 1 TABLET] diclofenac epolamine 1.3 % transdermal 12 hour patch 1 patch topical PRN PRN Pain 04/12/18 [History Last Taken Unknown] lorazepam 1 mg tablet 1 tab PO DAILY PRN Anxiety 04/12/18 [History Last Taken Unknown] montelukast 4 mg chewable tablet 10 mg PO DAILY 04/12/18 [History Last Taken Unknown] pantoprazole 40 mg tablet,delayed release 40 mg PO DAILY 04/12/18 [History Last Taken 01/08/21] topiramate 25 mg tablet 100 mg PO DAILY 04/12/18 [History Last Taken Unknown] magnesium oxide 500 mg capsule 500 mg PO DAILY 11/06/20 [History Last Taken Unknown] vitamin B complex 1 cap PO DAILY 11/06/20 [History Last Taken Unknown] albuterol sulfate 90 mcg/actuation aerosol inhaler 1 - 2 puff inhalation Q6H PRN PRN Allergies 12/25/20 [History Last Taken Unknown] fluoxetine 40 mg capsule 40 mg PO DAILY 11/07/22 [History Last Taken Unknown] benzonatate 200 mg capsule 200 mg PO TID PRN cough #20 caps 01/23/23 [Rx Last Taken Unknown] doxycycline hyclate 100 mg capsule 100 mg PO BID 01/23/23 [History Last Taken Unknown] methylprednisolone 4 mg tablets in a dose pack (Medrol ([place])) See Rx Instructions PO PER PKG DIR #21 tabs 01/23/23 [Rx Last Taken Unknown] Allergy/AdvReac Type Severity Reaction Status Date / Time buspirone [From BuSpar] Allergy Chest Verified 01/24/23 08:14 tightness ciprofloxacin [From Cipro] Allergy Hives Verified 01/24/23 08:14 ciprofloxacin HCl Allergy Hives Verified 01/24/23 08:14 [From Cipro] dichloralphenazone Allergy Chest Verified 01/24/23 08:14 [From Midrin] tightness isometheptene mucate Allergy Chest Verified 01/24/23 08:14 [From Midrin] tightness nortriptyline [Nortriptyline] Allergy Chest Verified 01/24/23 08:14 tightness Family History Father Factor 5 Leiden mutation, heterozygous Brother Factor 5 Leiden mutation, heterozygous Daughter Factor 5 Leiden mutation, heterozygous Surgical History delivery delivered H/O lithotripsy H/O: hysterectomy History of carpal tunnel surgery History of cholecystectomy History of LAVH Hx of fasciotomy Social History Smoking Status: Never smoker alcohol intake: current details: social substance use type: does not use caffeine: No what type of physical activity do you participate in: walking frequency: 1-2 times per week seatbelt use: always do you feel safe at home: Yes additional social history: [employer]- [employer] 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 Constitutional Constitutional: Denies chills, fatigue, fever(s) or weakness Eyes Eyes: Denies change in vision Cardiovascular Cardiovascular: Reports chest pain; Denies dyspnea on exertion, edema, lightheadedness or palpitations Respiratory/Chest Respiratory/Chest: Denies cough Gastrointestinal Gastrointestinal: Denies abdominal pain, nausea or vomiting Vital Signs Vital Signs Vital Signs: 05/27/23 14:31 05/27/23 14:50 05/27/23 15:43 Temperature 98.1 F Temperature Source Temporal Pulse Rate 85 84 Respiratory Rate 16 26 H Blood Pressure 149/101 H 154/108 H Blood Pressure Mean 117 123 Pulse Ox 98 98 98 Oxygen Delivery Method Room Air Room Air Room Air Weight Weight: 137.9 kg Body Mass Index (BMI) 47.6 Physical Exam Const alert and oriented x3 Constitutional Narrative: Pleasant female, morbidly obese, tearful on my interview due to anxiety about her condition, sitting comfortably in bed, conversing normally. General Appearance: cooperative HEENT normocephalic, head/scalp atraumatic, hearing grossly normal bilaterally, nasal mucous membranes and turbinates normal and moist oral mucous membranes Eyes PERRL, EOMs intact bilaterally and conjunctivae normal Neck full ROM, no lymphadenopathy and supple Lymph Lymphatic: no lymphadenopathy noted Chest inspection of chest normal Resp normal respiratory effort, normal air movement, no use of accessory muscles and clear to auscultation bilaterally Cardio regular rate, regular rhythm, no murmurs and peripheral pulses 2+ throughout GI normal to inspection, nondistended, normoactive bowel sounds, soft to palpation, non-tender and non-distended Back/Spine normal ROM Extremity normal to inspection, full ROM and no pedal edema Skin no rashes or lesions noted Psych mental status grossly normal Results Lab / Micro Data 05/27/23 14:45 05/27/23 14:45 Labs: Laboratory Results - last 24 hr 05/27/23 14:45: WBC 10.5, RBC 4.66, Hgb 13.1, Hct 40.6, MCV 87.1, MCH 28.1, MCHC 32.3, RDW Std Deviation 43.7, RDW Coeff of Kortney 14.0, Plt Count 258, MPV 10.3, Immature Gran % (Auto) 0.900, Neut % (Auto) 70.8 H, Lymph % (Auto) 21.2, Collier % (Auto) 5.6, Eos % (Auto) 1.1, Baso % (Auto) 0.4, Absolute Neuts (auto) 7.4, Absolute Lymphs (auto) 2.22, Nucleated RBC % 0, D-Dimer Quant (PE/DVT) 0.41, Sodium 137, Potassium 3.5, Chloride 108 H, Carbon Dioxide 22.0, Anion Gap 7, BUN 11, Creatinine 1.00, Estim Creat Clear Calc 69.81, Est GFR (MDRD) Af Amer 77, Est GFR (MDRD) Non-Af 64, BUN/Creatinine Ratio 11.0, Glucose 115 H, Calcium 8.7, Troponin I High Sens 504 H* Assessment & Plan Assessment/Plan (1) NSTEMI, initial episode of care: PLAN: Plan Patient is a 42-year-old female with history of factor V Leiden mutation, anxiety/depression, seasonal allergies, morbid obesity and GERD who presented to [facility] ED on 05/27/2023 with chest pain. 1. Chest pain High concern for cardiac chest pain given elevated troponins that are worsening, along with risk factors of factor V Leiden and untreated hyperlipidemia as noted below. Opponent trend of 504 to 785 to 2698. EKG in the ED showed sinus rhythm at 77 bpm, nonspecific T wave flattening in the lateral precordial leads, otherwise normal. ED discussed with Dr. Chao with cardiology, patient started on heparin drip and nitroglycerin drip in the ED. Also given aspirin 325 mg x1. ?Admit to inpatient bed on cardiac telemetry unit. Cardiology consulted, appreciate recs. N.p.o. at midnight with plan for heart cath in the morning. Echo ordered. Continue heparin and nitroglycerin drips. Initiated on Coreg 3.125 mg twice daily. Can consider adding ACEi/ARB as able. 2. Hyperlipidemia Lipid panel drawn on 05/05/2023 showed total cholesterol 240, LDL 141, HDL 31, triglycerides 340. Patient states her PCP has tried her on 2 different statin medications, but she did not tolerate these. States her side effect with both medications was hives. She knows one was Crestor, is unsure of what the other one was. ?Can discuss other anticholesterol agents with cardiology prior to patient going home. 3. Anxiety/depression ? Continue home fluoxetine, lorazepam p.o. twice daily as needed. 4. GERD ? Continue home Protonix. 5. Morbid obesity ? BMI 47.5. Lifestyle modifications encouraged. DVT prophylaxis: Heparin drip CODE STATUS: Full code, verified Expected disposition: Home, 1 to 2 days Total clinical time spent by myself addressing the patient's medical issues, reviewing all the data, and collaborating with patient's care team: 55 minutes. Charges/Coding Visit Charges Inpatient E&M: 93949 Init Hosp L2
[2023-05-27] MEDS: Heparin Injection (Vial) 5,000 UNIT/ML VIAL 4000 UNIT IV (16:15)
[2023-05-27 16:17] LABS: Prothrombin Time (Protime)PT. 13.3 SECONDS (11.7-14.9)
[2023-05-27 16:18] LABS: Partial Thromboplast Time 27.4 Seconds (24.1-36.2)
[2023-05-27] MEDS: HEPARIN/D5w 25,000 UNITS 25,000 UNITS/250 ML IV.SOLN. 10 UNITS CONT INF (16:18)
[2023-05-27] MEDS: LORazepam 2 MG/ML Syringe 0.5 MG IV (16:40)
[2023-05-27 16:51] LABS: Reflex Troponin-HS? (from REC) Y
[2023-05-27] MEDS: Nitroglycerin Infusion 250 ML 3 MG CONT INF (17:17)
--- NOTE | 2023-05-27 17:53 | ECHOCS_ITS ---
Reason For Study: Chest Pain Procedure This was a 2D Doppler, Color Flow transthoracic echocardiogram. The study was technically difficult. Contrast injection was performed. Echo performed with patient supine post heart cath. Exam performed portable in patient room. Left Ventricle Normal LV size. The estimated ejection fraction is 55 %. Normal diastololic function. No regional wall motion abnormalities noted. Hypokinetic apex. Right Ventricle Normal RV size. Normal systolic function. Atria The left and right atria are normal. Mitral Valve The mitral valve is structurally normal. No prolapse or stenosis seen. Tricuspid Valve Normal tricuspid valve. Trivial tricuspid valve insufficiency. Unable to estimate RV systolic pressure due to insufficient tricuspid regurgitant envelope. Aortic Valve The aortic valve is not well visualized in the short axis view. Pulmonic Valve The pulmonic valve is not well visualized. Normal pulmonic valve. Great Vessels Normal aortic root. Pericardium/Pleural No pericardial effusion. Medication Diluted definity 4ml given slow IV push to enhance endocardial definition. MMode/2D Measurements & Calculations LVIDd: 4.2 cm IVSd: 0.87 cm Ao root diam: 2.9 cm LVIDs: 3.2 cm LVPWd: 1.2 cm LA dimension: 3.6 cm RVDd: 3.5 cm FS: 22.9 % LAV(MOD-bp): 37.9 ml LVAd ap4: 36.3 cm2 SV(MOD-sp4): 70.2 ml LAV(MOD-bp) Indexed: 15.7 ml/m2 LVLd ap4: 7.9 cm LAV(MOD-sp2): 33.2 ml EDV(MOD-sp4): 134.9 ml LAV(MOD-sp4): 40.2 ml EDV(sp4-el): 141.7 ml LVAs ap4: 23.3 cm2 LVLs ap4: 7.0 cm ESV(MOD-sp4): 64.7 ml ESV(sp4-el): 66.0 ml EF(MOD-sp4): 52.1 % EF(sp4-el): 53.4 % SV(sp4-el): 75.7 ml LA A4 area: 16.6 cm2 RA A4 area: 18.1 cm2 TAPSE: 1.4 cm Time Measurements MV dec time: 0.19 sec Doppler Measurements & Calculations MV E max liban: 86.5 cm/sec Lat Peak E' Liban: 15.6 cm/sec Med Peak E' Liban: 12.6 cm/sec MV A max liban: 53.7 cm/sec E/E' lat: 5.5 E/E' med: 6.9 MV E/A: 1.6 MV V2 max: 87.7 cm/sec MV P1/2t max liban: 87.7 cm/sec Ao V2 max: 132.0 cm/sec MV max P.1 mmHg MV P1/2t: 60.9 msec Ao max P.0 mmHg MV V2 mean: 40.0 cm/sec Ao V2 mean: 89.3 cm/sec MV mean P.82 mmHg MV dec slope: 421.6 cm/sec2 Ao mean P.7 mmHg MV V2 VTI: 24.3 cm MVA(P1/2t): 3.6 cm2 Ao V2 VTI: 28.8 cm AV (velocity ratio): 0.87 LV V1 max: 110.3 cm/sec PA V2 max: 73.8 cm/sec LV V1 max P.9 mmHg LV V1 mean P.1 mmHg LV V1 mean: 83.9 cm/sec LV V1 VTI: 25.1 cm ECHO/Echo Complete W/ Contrast Interpretation Summary The estimated ejection fraction is 55 %. Hypokinetic apex. The study was technically difficult. Contrast injection was performed. Ordering Physician: Vimal Colon Referring Physician: Sujey Shaikh Performed By: Vinay Boland RCS
[2023-05-27 17:54] LABS: Troponin-I HS 785 pg/mL (3.0-54.0)
[2023-05-27] MEDS: Acetaminophen 325 MG Tablet 650 MG PO (18:56)
[2023-05-27] MEDS: Ondansetron 4 MG/2 ML Vial IV (19:57)
[2023-05-27 21:10] LABS: Hemoglobin A1c 5.4 % (3.8-5.6)
[2023-05-27] MEDS: Carvedilol 3.125 MG TABLET PO (21:24)
[2023-05-27 21:35] LABS: Partial Thromboplast Time 32.8 Seconds (24.1-36.2)
[2023-05-27 21:51] LABS: Troponin-I HS 2698 pg/mL (3.0-54.0)
[2023-05-27] MEDS: Heparin Injection (Vial) 5,000 UNIT/ML VIAL IV (22:40)
[2023-05-27] MEDS: LORazepam 1 MG Tablet PO (22:52)
[2023-05-28] VITALS (10 sets, daily range): BP systolic 94–125; BP diastolic 59–80; PULSE 66–76; RESP 16–18; TEMP 35.9–36.8; O2SAT 97–99
[2023-05-28 05:09] LABS: Partial Thromboplast Time 37.3 Seconds (24.1-36.2)
[2023-05-28] MEDS: 0.9% Saline Lock 10 ML Syringe IV (05:20)
[2023-05-28] MEDS: Heparin Injection (Vial) 5,000 UNIT/ML VIAL IV ×2 (05:20→11:49)
--- NOTE | 2023-05-28 07:36 | PCM.PN.HOSP ---
Reason for Visit Reason for Visit: Diagnoses Non-ST elevation (NSTEMI) myocardial infarction (05/27/23) Subjective Subjective Patient is a 42-year-old female with history of factor V Leiden mutation, anxiety/depression, seasonal allergies, morbid obesity and GERD who presented to [facility] ED on 05/27/2023 with chest pain.. Patient was found to have elevated troponin consistent with acute non-STEMI admitted to monitored bed for further management Objective Data Objective Data Vital Signs: Vital Signs Temp Pulse Resp BP Pulse Ox O2 Del Method 97.8 F 66 16 106/63 98 Room Air 05/28/23 04:50 05/28/23 04:50 05/28/23 04:50 05/28/23 04:50 05/28/23 04:50 05/28/23 04:50 Oxygen Delivery Method Room Air Weight: 137.5 kg Body Mass Index (BMI) 47.5 Intake & Output: Intake and Output for Last 24 Hours 05/26/23 05/27/23 05/28/23 23:59 23:59 23:59 Intake Total 558.65 / 1184.65 717.95 / 717.95 Balance 558.65 / 1184.65 717.95 / 717.95 Lab / Micro Data 05/27/23 14:45 05/27/23 14:45 Labs: Laboratory Results - last 24 hr 05/27/23 14:45: WBC 10.5, RBC 4.66, Hgb 13.1, Hct 40.6, MCV 87.1, MCH 28.1, MCHC 32.3, RDW Std Deviation 43.7, RDW Coeff of Kortney 14.0, Plt Count 258, MPV 10.3, Immature Gran % (Auto) 0.900, Neut % (Auto) 70.8 H, Lymph % (Auto) 21.2, Gordon % (Auto) 5.6, Eos % (Auto) 1.1, Baso % (Auto) 0.4, Absolute Neuts (auto) 7.4, Absolute Lymphs (auto) 2.22, Nucleated RBC % 0, D-Dimer Quant (PE/DVT) 0.41, Sodium 137, Potassium 3.5, Chloride 108 H, Carbon Dioxide 22.0, Anion Gap 7, BUN 11, Creatinine 1.00, Estim Creat Clear Calc 69.81, Est GFR (MDRD) Af Amer 77, Est GFR (MDRD) Non-Af 64, BUN/Creatinine Ratio 11.0, Glucose 115 H, Hemoglobin A1c 5.4, Calcium 8.7, Troponin I High Sens 504 H* 05/27/23 15:55: PT 13.3, INR 1.0, APTT 27.4 05/27/23 17:00: Troponin I High Sens 785 H* 05/27/23 21:15: APTT 32.8, Troponin I High Sens 2698 H* 05/28/23 04:50: APTT 37.3 H Radiography Diagnostic Testing: Radiology Impression Chest X-Ray 05/27/23 14:41 IMPRESSION: No evidence of acute cardiopulmonary process. Electronically Signed: Fran Hunt DO at 16:06 EDT , Assessment & Plan Assessment/Plan (1) NSTEMI, initial episode of care: PLAN: Plan Patient is a 42-year-old female with history of factor V Leiden mutation, anxiety/depression, seasonal allergies, morbid obesity and GERD who presented to [facility] ED on 05/27/2023 with chest pain.. Patient was found to have elevated troponin consistent with acute non-STEMI admitted to monitored bed for further management . Acute non-STEMI ? Patient admitted to a monitored bed treatment initiated per protocol with heparin nitroglycerin drip beta-blockers as well as aspirin. Consult placed to cardiology decision for patient to undergo C deferred to cardiology 2. Dyslipidemia ? Patient states she has allergy to statins. 3. Class III obesity with BMI of 47.5 ? Complicating care weight loss advised 4. Depression with anxiety ? Patient is on fluoxetine as well as lorazepam as needed continue 6. GERD ? Patient is on PPI continue 7. History of factor V Leyden mutation ? Patient is heterozygous with no previous VTE 8. DVT prophylaxis ? Patient is on heparin Time spent in the patient's overall evaluation,decision-making process, review of diagnostic data, adjustment of management, discussion with other providers, nursing nursing and ancillary staff involved in patient's care documentation, 50 Minutes Charges/Coding Visit Charges Inpatient E&M: 85348 [facility] Hosp L3
--- NOTE | 2023-05-28 09:20 | CON.PCM.CA_ITS ---
Assessment & Plan Assessment/Plan (1) NSTEMI, initial episode of care: PLAN: Continue aspirin. Start on Plavix. DC nitroglycerin infusion. Start on Nitropaste. Recommend coronary angiography with possible revascularization. Risks benefits and alternatives discussed with patient. She understands and wishes to proceed. We will schedule her for coronary angiography in the morning. (2) Dyslipidemia: PLAN: Start on atorvastatin. (3) Obesity: PLAN: Lose weight. (4) Factor 5 Leiden mutation, heterozygous: PLAN: On aspirin. (5) Migraines: PLAN: As per internal medicine. HPI Consult Data Date of Consult: 05/28/23 HPI Narrative Reason for Consultation: NSTEMI HPI Narrative: 42-year-old female with past medical history significant for factor V Leiden mutation. Also history of anxiety disorder. She presented to the emergency room yesterday with complaints of anterior chest discomfort that started at rest. She also had jaw discomfort associated with that. No associated diaphoresis or dyspnea. The discomfort lasted 2 to 3 hours. It was relieved with medications received in the emergency room. As part of her work-up, she was noted to have elevated troponins ruling her in for NSTEMI. Patient denies any previous history of angina pectoris. No history of heart disease. No hypertension. No palpitations. No orthopnea. No PND. No ankle edema. Presently asymptomatic. [facility] Medical History (Updated 05/28/23 @ 09:[address] Geoff Chao MD) Anxiety Cellulitis of left forearm Factor 5 Leiden mutation, heterozygous GERD (gastroesophageal reflux disease) History of PCOS Hx of migraines Seasonal allergies Home Medications calcium carbonate 600 mg-vitamin D3 20 mcg (800 unit) tablet 1 tab PO DAILY@0800 03/11/14 [History Last Taken 03/12/14 20:00 1 TAB] folic acid 400 mcg tablet 0.4 mg PO DAILY@0800 03/11/14 [History Last Taken 03/12/14 20:00 0.4 MG] multivitamin with folic acid 400 mcg tablet 1 tab PO DAILY 03/11/14 [History Last Taken 03/12/14 20:00 1 TABLET] diclofenac epolamine 1.3 % transdermal 12 hour patch 1 patch topical PRN PRN Pain 04/12/18 [History Last Taken Unknown] lorazepam 1 mg tablet 1 tab PO DAILY PRN Anxiety 04/12/18 [History Last Taken Unknown] montelukast 4 mg chewable tablet 10 mg PO DAILY 04/12/18 [History Last Taken Unknown] pantoprazole 40 mg tablet,delayed release 40 mg PO DAILY 04/12/18 [History Last Taken 01/08/21] topiramate 25 mg tablet 100 mg PO DAILY 04/12/18 [History Last Taken Unknown] magnesium oxide 500 mg capsule 500 mg PO DAILY 11/06/20 [History Last Taken Unknown] vitamin B complex 1 cap PO DAILY 11/06/20 [History Last Taken Unknown] albuterol sulfate 90 mcg/actuation aerosol inhaler 1 - 2 puff inhalation Q6H PRN PRN Allergies 12/25/20 [History Last Taken Unknown] fluoxetine 40 mg capsule 40 mg PO DAILY 11/07/22 [History Last Taken Unknown] benzonatate 200 mg capsule 200 mg PO TID PRN cough #20 caps 01/23/23 [Rx Last Taken Unknown] doxycycline hyclate 100 mg capsule 100 mg PO BID 01/23/23 [History Last Taken Unknown] methylprednisolone 4 mg tablets in a dose pack (Medrol ([place])) See Rx Instructions PO PER PKG DIR #21 tabs 01/23/23 [Rx Last Taken Unknown] Allergy/AdvReac Type Severity Reaction Status Date / Time buspirone [From BuSpar] Allergy Chest Verified 01/24/23 08:14 tightness ciprofloxacin [From Cipro] Allergy Hives Verified 01/24/23 08:14 ciprofloxacin HCl Allergy Hives Verified 01/24/23 08:14 [From Cipro] dichloralphenazone Allergy Chest Verified 01/24/23 08:14 [From Midrin] tightness isometheptene mucate Allergy Chest Verified 01/24/23 08:14 [From Midrin] tightness nortriptyline [Nortriptyline] Allergy Chest Verified 01/24/23 08:14 tightness Family History Father Factor 5 Leiden mutation, heterozygous Brother Factor 5 Leiden mutation, heterozygous Daughter Factor 5 Leiden mutation, heterozygous Surgical History delivery delivered H/O lithotripsy H/O: hysterectomy History of carpal tunnel surgery History of cholecystectomy History of LAVH Hx of fasciotomy Social History Smoking Status: Never smoker alcohol intake: current details: social substance use type: does not use caffeine: No what type of physical activity do you participate in: walking frequency: 1-2 times per week seatbelt use: always do you feel safe at home: Yes additional social history: [employer]- [employer] 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 Comfortable. No apparent distress. Heart sounds 1 and 2 are normal. Chest clear to auscultation bilaterally. Abdomen soft. Alert oriented x3. No ankle edema noted. Risk Stratification Risk Stratification Applicable: No Objective Data Vital Signs: Vital Signs Temp Pulse Resp BP Pulse Ox O2 Del Method 97.8 F 66 16 106/63 98 Room Air 05/28/23 04:50 05/28/23 04:50 05/28/23 04:50 05/28/23 04:50 05/28/23 04:50 05/28/23 08:40 Oxygen Delivery Method Room Air Weight: 303 lb 2.17 oz Body Mass Index (BMI) 47.5 Intake & Output: Intake and Output for Last 24 Hours 05/26/23 05/27/23 05/28/23 23:59 23:59 23:59 Intake Total 558.65 / 1184.65 717.95 / 717.95 Balance 558.65 / 1184.65 717.95 / 717.95 Lab / Micro Data 05/27/23 14:45 05/27/23 14:45 Labs: Laboratory Results - last 24 hr 05/27/23 14:45: WBC 10.5, RBC 4.66, Hgb 13.1, Hct 40.6, MCV 87.1, MCH 28.1, MCHC 32.3, RDW Std Deviation 43.7, RDW Coeff of Kortney 14.0, Plt Count 258, MPV 10.3, Immature Gran % (Auto) 0.900, Neut % (Auto) 70.8 H, Lymph % (Auto) 21.2, Lamar % (Auto) 5.6, Eos % (Auto) 1.1, Baso % (Auto) 0.4, Absolute Neuts (auto) 7.4, Absolute Lymphs (auto) 2.22, Nucleated RBC % 0, D-Dimer Quant (PE/DVT) 0.41, Sodium 137, Potassium 3.5, Chloride 108 H, Carbon Dioxide 22.0, Anion Gap 7, BUN 11, Creatinine 1.00, Estim Creat Clear Calc 69.81, Est GFR (MDRD) Af Amer 77, Est GFR (MDRD) Non-Af 64, BUN/Creatinine Ratio 11.0, Glucose 115 H, Hemoglobin A1c 5.4, Calcium 8.7, Troponin I High Sens 504 H* 05/27/23 15:55: PT 13.3, INR 1.0, APTT 27.4 05/27/23 17:00: Troponin I High Sens 785 H* 05/27/23 21:15: APTT 32.8, Troponin I High Sens 2698 H* 05/28/23 04:50: APTT 37.3 H Rhythm Strip Rhythm Strip: Sinus Rhythm Cardiology Labs/Tests 05/27/23 14:45: WBC 10.5, RBC 4.66, Hgb 13.1, Hct 40.6, MCV 87.1, MCH 28.1, MCHC 32.3, Plt Count 258, MPV 10.3, Immature Gran % (Auto) 0.900, Neut % (Auto) 70.8 H, Lymph % (Auto) 21.2, Lamar % (Auto) 5.6, Eos % (Auto) 1.1, Baso % (Auto) 0.4, Absolute Neuts (auto) 7.4, Nucleated RBC % 0, D-Dimer Quant (PE/DVT) 0.41, Sodium 137, Potassium 3.5, Chloride 108 H, Carbon Dioxide 22.0, Anion Gap 7, BUN 11, Creatinine 1.00, Est GFR (MDRD) Af Amer 77, Est GFR (MDRD) Non-Af 64, BUN/Creatinine Ratio 11.0, Glucose 115 H, Hemoglobin A1c 5.4, Calcium 8.7 05/27/23 15:55: PT 13.3, INR 1.0, APTT 27.4 05/27/23 21:15: APTT 32.8 05/28/23 04:50: APTT 37.3 H Rhythm: EKG: Sinus rhythm. T wave changes consistent with ischemia. ECHO: Stress Test: Cardiac Cath: PCI: CT Surgery: Holter monitor: EPS: PPM: CXR: Chest CT Scan: Radiography Diagnostic Testing: Radiology Impression Chest X-Ray 05/27/23 14:41 IMPRESSION: No evidence of acute cardiopulmonary process. Electronically Signed: Fran Hunt DO at 16:06 EDT ,
[2023-05-28 09:37] LABS: Absolute Lymphocyte Count 2.92 X10^3/uL (0.83-4.51); Absolute Neutrophil Count 5.6 X10^3/uL (2.0-7.7); Basophil# 0.03 X10^3/uL; Basophil% 0.3 % (0-1); Eosinophils% 1.1 % (0-5); Hematocrit 37.2 % (37-47); Hemoglobin 12.2 g/dL (12.0-15.0); Lymphocyte # 2.92 X10^3/ul (0.83-4.51); Lymphocyte % 32.1 % (19-41); Mean Corp Hgb Conc 32.8 g/dL (32-36); Mean Corpuscular Hgb 29.1 pg (27.0-32.0); Mean Corpuscular Volume 88.8 fL (81-99); Mean Platelet Vol. 11.4 fl (6.2-12.0); Monocyte# 0.43 X10^3/uL; Monocyte% 4.7 % (0-10); NRBC Flagged by Analyzer 0 % (0-5); Neutrophil # 5.57 X10^3/uL (2.7-7.7); Neutrophil % 61.1 % (47-70); Platelet Count 225 K/mm3 (150-450); RBC Distribution Width CV 14.2 % (11.6-14.6); RBC Distribution Width SD 45.3 fl (35.1-43.9); Red Blood Count 4.19 M/mm3 (4.2-5.4); White Blood Count 9.1 K/mm3 (4.4-11.0)
[2023-05-28 09:49] LABS: ALB/GLOB Ratio 0.7 RATIO (0.9-2.4); AST(SGOT) 21 U/L (15-37); Alanine Aminotransfer ALT/SGPT 19 U/L (13-56); Albumin, Serum 2.7 g/dL (3.2-5.0); Alkaline Phosphatase 84 U/L (45-117); Anion Gap 8 (5-15); BUN 10 mg/dL (7-18); BUN/Creat Ratio 10.3 RATIO (10-20); Calcium,Total 8.7 mg/dL (8.5-10.1); Chloride 109 mmol/L (98-107); Creatinine, Serum 0.97 mg/dL (0.55-1.02); EST Glomerular Filtration Rate 66 mL/min (>60); Est Glom Filt Rate - Afr Amer 80 mL/min (>60); Estimated Creatinine Clearance 71.97 ml/min; Globulin 3.7 g/dL (2.2-4.2); Glucose 104 mg/dL (74-106); Potassium 3.8 mmol/L (3.5-5.1); Protein, Total 6.4 g/dL (6.4-8.2); Sodium Level 140 mmol/L (136-145)
[2023-05-28] MEDS: LORazepam 1 MG Tablet PO ×2 (10:28→21:28)
[2023-05-28] MEDS: Acetaminophen 325 MG Tablet 650 MG PO ×2 (10:29→22:37)
[2023-05-28] MEDS: Magnesium Chloride 64 MG Delay Rel.Tablet 128 MG PO (10:31)
[2023-05-28] MEDS: TICAGRELOR 90 MG TABLET PO ×2 (10:32→21:28)
[2023-05-28] MEDS: Folic Acid 1 MG Tablet 0.5 MG PO (10:32)
[2023-05-28] MEDS: Montelukast 10 MG Tablet PO (10:33)
[2023-05-28] MEDS: Topiramate 100 MG Tablet PO (10:33)
[2023-05-28] MEDS: Aspirin E.C. 81 MG Tablet PO (10:33)
[2023-05-28] MEDS: Fluoxetine HCl 40 MG CAPSULE PO (10:34)
[2023-05-28] MEDS: HEPARIN/D5w 25,000 UNITS 25,000 UNITS/250 ML IV.SOLN. 16 UNITS CONT INF (12:52)
[2023-05-28] MEDS: Nitroglycerin Oint 1 INCH PACKET TD ×2 (15:42→21:29)
[2023-05-28 17:57] LABS: Partial Thromboplast Time 46.9 Seconds (24.1-36.2)
--- NOTE | 2023-05-28 19:53 | CASEMGMT ---
Tertiary Facilities in network with pt's insurance per the [facility] Web site: [facility], [facility], [facility], , [facility], [facility], [facility] Eric Dowell RN CM
[2023-05-28] MEDS: Carvedilol 3.125 MG TABLET PO (21:28)
[2023-05-29] VITALS (15 sets, daily range): BP systolic 97–128; BP diastolic 55–76; PULSE 63–76; RESP 16–18; TEMP 36.1–37.1; O2SAT 97–100
[2023-05-29] MEDS: HEPARIN/D5w 25,000 UNITS 25,000 UNITS/250 ML IV.SOLN. 17 UNITS CONT INF (04:03)
--- NOTE | 2023-05-29 05:00 | EKG12_ITS ---
Test Reason : AM EKG Blood Pressure : / mmHG Vent. Rate : 071 BPM Atrial Rate : 071 BPM P-R Int : 140 ms QRS Dur : 082 ms QT Int : 484 ms P-R-T Axes : 032 000 124 degrees QTc Int : 525 ms Normal sinus rhythm Cannot rule out Anterior infarct , age undetermined T wave abnormality, consider lateral ischemia Prolonged QT Abnormal ECG When compared with ECG of 27-MAY-2023 15:43, MANUAL COMPARISON REQUIRED, DATA IS UNCONFIRMED Confirmed by HAYDEE BERKOWITZ, LUIS ([id number]), primer expeditor and drier MARIJA LANGE ([id number]) on 07/17/2023 1:04:03 PM Referred By: DR HERNANDEZ Confirmed By:LUIS HUBBARD MD
[2023-05-29] MEDS: Carvedilol 3.125 MG TABLET PO ×2 (06:12→21:31)
[2023-05-29] MEDS: Aspirin E.C. 81 MG Tablet PO (06:12)
[2023-05-29] MEDS: TICAGRELOR 90 MG TABLET PO ×2 (06:12→21:32)
[2023-05-29 06:38] LABS: Hematocrit 39.1 % (37-47); Hemoglobin 12.6 g/dL (12.0-15.0); Mean Corp Hgb Conc 32.2 g/dL (32-36); Mean Corpuscular Hgb 28.3 pg (27.0-32.0); Mean Corpuscular Volume 87.9 fL (81-99); Mean Platelet Vol. 10.2 fl (6.2-12.0); Platelet Count 238 K/mm3 (150-450); RBC Distribution Width CV 14.3 % (11.6-14.6); RBC Distribution Width SD 44.8 fl (35.1-43.9); Red Blood Count 4.45 M/mm3 (4.2-5.4); White Blood Count 10.5 K/mm3 (4.4-11.0)
[2023-05-29 07:05] LABS: Anion Gap 6 (5-15); BUN 10 mg/dL (7-18); BUN/Creat Ratio 10.5 RATIO (10-20); Calcium,Total 8.6 mg/dL (8.5-10.1); Chloride 110 mmol/L (98-107); Cholesterol 224 mg/dL (200); Creatinine, Serum 0.95 mg/dL (0.55-1.02); EST Glomerular Filtration Rate 68 mL/min (>60); Est Glom Filt Rate - Afr Amer 82 mL/min (>60); Estimated Creatinine Clearance 73.49 ml/min; Glucose 99 mg/dL (74-106); High Density Lipoprotein 41 mg/dL; Magnesium 2.1 mg/dL (1.6-2.6); Phosphorus 2.9 mg/dL (2.5-4.9); Potassium 3.7 mmol/L (3.5-5.1); Sodium Level 138 mmol/L (136-145); Triglycerides 327 mg/dL; Very Low Density Lipoprotein 65 mg/dL (5-40)
--- NOTE | 2023-05-29 07:30 | EKG12_ITS ---
Test Reason : PCU ADMIT Blood Pressure : / mmHG Vent. Rate : 063 BPM Atrial Rate : 063 BPM P-R Int : 152 ms QRS Dur : 074 ms QT Int : 522 ms P-R-T Axes : 045 -01 119 degrees QTc Int : 534 ms Normal sinus rhythm ST & T wave abnormality, consider anterolateral ischemia Prolonged QT Abnormal ECG When compared with ECG of 27-MAY-2023 15:43, MANUAL COMPARISON REQUIRED, DATA IS UNCONFIRMED Confirmed by HAYDEE BERKOWITZ, LUIS ([id number]), associate editor MARIJA LANGE ([id number]) on 07/17/2023 1:03:51 PM Referred By: Confirmed By:LUIS HUBBARD MD
--- NOTE | 2023-05-29 07:47 | CL.I_ITS ---
Patient Name: YVES SKINNER Study Date: 05/29/2023 Performing: Geoff Chao MD Ht: 67 inches 170.18 cm : 1980 Wt: 303.5 lbs 137.5 kg Age: 42 Gender: female BSA: 2.41 PROCEDURE(S) PERFORMED DC02-(41635)LHC/COR IC12-(97859/C9600)TRINA W/WO PTCA, SINGLE CORONARY ARTERY CLINICAL PROFILE AND CO-MORBIDITIES Indications: ACS > 24 hrs Heart Failure: None CAD Presentations: Non-STEMI. Symptom onset Date/Time: Time Not Available CONCLUSIONS 99% Mid LAD 60% Prox RCA 50% Prox Ramus Successful TRINA Mid LAD using resolute Sutton 3.0x22 mm. Ostial D1 dilated using 2.5 mm balloon RECOMMENDATIONS ASA Indefinitley Brilinta for at least 12 months DESCRIPTION OF PROCEDURE The patient arrived to the procedure lab. The risks and benefits of the procedure as well as a full description of our services here and lack of surgical backup were fully explained to the patient and/or their significant other prior to the catheterization. The Timeout was completed, verifying the correct patient and procedure. The patient's procedural site was prepped and draped in the usual fashion. Local anesthetic was given subcutaneously to right radial region with Lidocaine 2%. Using a modified Seldinger technique, arterial access was obtained via the right radial artery, a 6Fr sheath was inserted.. Right Coronary Artery selective angiography was then performed in multiple views using a 5 Fr. 4.0 [place] catheter. Left Coronary Artery selective angiography was performed in multiple views using a 5 Fr. 4.0 [place] catheterThe images were reviewed and options discussed. A decision was then made to proceed with an Intervention, IVUS or other adjunct procedure. xb 3 Guide catheter was inserted and engaged into the LCA. runthrough Guide wire was advanced to the LAD. bernice 3.0 x 22 Drug Eluting stent was advanced across the lesion in the LAD, mid. PTCA balloon inflated at 12 atms for 12 secs. runthrough Guide wire was advanced to the Diagonal. emerge 2.5 x 8 Balloon catheter was advanced across lesion in the first diagonal, proximal. PTCA balloon inflated at 8 atms for 41 secs. nc emerge 3.00 x 12 Balloon catheter was inserted post stent in LAD Angiogram performed post balloon dilatation. Angiogram performed post balloon dilatation. The arterial sheath was pulled and a TR Band was applied for hemostasis CORONARY ANGIOGRAPHY DOMINANCE: Right Dominant LEFT HEART ASSESSMENT LVEDP: 30 mmHg LEFT MAIN: Angiographically normal LEFT ANTERIOR DESCENDING ARTERY: LAD: Tubular 40% Ostial lesion in LAD Tubular 99% Mid lesion in LAD DIAGONAL 1: Tubular 50% Proximal lesion in 1st Diagonal CIRCUMFLEX ARTERY: Angiographically normal RAMUS: Angiographically normal RAMUS: Tubular 50% Proximal lesion in Ramus RIGHT CORONARY ARTERY: RCA: Tubular 60% Proximal lesion in RCA INTERVENTION INFORMATION LESION SITE: LAD (Mid) Lesion Complexity: High/C, lesion length: 20 mm, culprit lesion: Yes Pre Stenosis: 99 % Pre intervention GILMER flow: 3 PROCEDURE: Drug Eluting Stent with post dilatation Post Stenosis: 0 % Post intervention GILMER flow: 3 Lesion Devices: Terumo .014 180cm Runthrough Extra Floppy straight Cordis 6 Fr XB3.0 100cm Guide Catheter [employer] Resolute Bernice RX TRINA 3.0x22 Terumo .014 180cm Runthrough Extra Floppy straight Salvador Sci EMERGE MR 2.50x08 BALLOON Salvador Sci NC EMERGE MR 3.00x12 BALLOON COMPLICATIONS No Complications PROCEDURE MEDICATIONS Versed 1 mg IV Fentanyl 50 mcg IV Versed 1 mg IV Oxygen: 2 L/min via nasal cannula Heparin given IA 05/29/2023 06:55:47 Heparin 77220 unit(s) IV 05/29/2023 07:01:35 Nitro 200 mcg IC 05/29/2023 07:23:08 Verapamil 2.5mg, Ntg 200mcgs, 2000 units of Heparin given IA 05/29/2023 06:55:47 SUMMARY OF HEMODYNAMIC DATA Time AIR REST ECG 06:39:51 AO 115/85 (99) SA 06:57:29 LV 136/18, 36 07:03:13 LV 128/18, 30 07:03:22 LVp 134/90, 100 07:04:11 AOp 130/79 (111) 07:04:18 Signed By Geoff Chao MD On 11/06/2023 07:52:12 Signed By Geoff Chao MD On 05/29/2023 07:46:59 Geoff Chao MD
--- NOTE | 2023-05-29 08:44 | CRPHASE1 ---
Patient Communication Patient Information PHII Cardiac Rehab Discussed with Patient:: Yes Guide to Cardiac Rehab Given to Patient:: Yes Cardiac Rehab Facility Choice List Given to Patient:: Yes Communication to Cardiac Rehab Choice Program [facility] CR PHII:: Communication Given to CR [employer] Supervisor:: Geoff Chao Refer Phase II Cardiac Rehab:: Yes Cardiac Rehabilitation Info Program Information Cardiac Rehabilitation Program Information: Cardiac Rehab The cardiac rehab team at [facility] consists of highly skilled exercise physiologists, nurses, respiratory therapists and physicians working together with you. Our purpose is to help you have a full recovery and achieve the goals you set for yourself. Over the years many of our patients have returned to activities they assumed they would never do again! We can help restore your confidence and motivation to make lifestyle changes that can have a significant impact on your health and quality of life! We can help answer questions and concerns you may have about exercise, lifestyle, medications, diet, stress and anxiety which are common following a hospitalization. WE monitor ECG and vital signs during exercise and discuss your progress with you and report to your physician(s). Cardiac Rehab is proven to help reduce readmissions, improve functional capacity and lower recurrence of problems with your heart. Our Cardiac Rehab program is Certified by the [place] [employer] Pulmonary [employer] (AACVPR) and Accredited by the [place] [employer] through our [facility]. You can contact us at . We invite you to call us with your questions or to get started in our program. If you have other questions or concerns be sure to ask your physician/provider during your follow-up visit. WE look forward to seeing you!
--- NOTE | 2023-05-29 08:45 | CRPH1.INSTRU ---
General Education Discussed with Patient CAD and cardiac anatomy and function:: Patient communicates acknowledgment Explanation of diagnoses and procedures:: Patient communicates acknowledgment Sign/Symptoms of IL:: Patient communicates acknowledgment Antiplatelet therapy: Patient communicates acknowledgment Proper use of NTG-SL: Patient communicates acknowledgment Emergency procedures and activation of EMS: Patient communicates acknowledgment Compliance of all prescribed medications: Patient communicates acknowledgment Smoking Risk Factors Patient Nicotine/Smoking Risk Factors Are:: Non-smoker Dyslipidemia Risk Factors Patient Dyslipidemia Risk Factors Are:: Total Cholesterol, Triglycerides, HDL and LDL Recommendations Recommendations Include:: Lipid profile provided, Reviewed NCEP/ATP guidelines and Therapeutic Lifestyle Change dietary guidelines Response Code Dyslipidemia Response Code:: Patient communicates acknowledgment Overweight/Obesity Risk Factors Patient Overweight/Obesity Risk Factors Are:: Obesity - > or = 30 Recommendations Recommendations Include:: Weight loss of 5-10%, Reduced calorie diet and Exercise 5-7 times/week Response Code Overweight/Obesity:: Patient communicates acknowledgment Hypertension Risk Factors Patient Hypertension Risk Factors Are:: No documented hx of HTN Diabetes Risk Factors Patient Diabetes Risk Factors Are:: No documented hx of diabetes Metabolic Syndrome Risk Factors Patient Metabolic Syndrome Risk Factors Are [3 of 5]:: Waist circumference > 35 [female] or 40 [male], High triglyceride >150 and Low HDL <40 [male] or < 50 [female] Recommendations Recommendations Include:: Reinforce compliance to risk factor modifications and Encouraged follow-up with Primary Care Physician Response Code Metabolic Syndrome Response Code:: Patient communicates acknowledgment Sedentary Risk Factors Patient Sedentary Risk Factors Are:: Lack of regular exercise Recommendations Recommendations Include:: Aerobic exercise 5-7 times/week for 20-30 minutes continuously, Benefits of regular exercise, Discussed home walking program and Monitored Outpatient Cardiac Rehab Response Code Sedentary Response Code:: Patient communicates acknowledgment Stress Recommendations Recommendations Include:: Identification of stressors, and assessment of coping skills and Stress management techniques Response Code Stress Response Code:: Patient communicates acknowledgment
[2023-05-29] MEDS: Folic Acid 1 MG Tablet 0.5 MG PO (09:06)
[2023-05-29] MEDS: Montelukast 10 MG Tablet PO (09:07)
[2023-05-29] MEDS: Magnesium Chloride 64 MG Delay Rel.Tablet 128 MG PO (09:07)
[2023-05-29] MEDS: Fluoxetine HCl 40 MG CAPSULE PO (09:07)
[2023-05-29] MEDS: Lisinopril 2.5 MG Tablet PO (09:24)
[2023-05-29] MEDS: LORazepam 1 MG Tablet PO (09:24)
[2023-05-29] MEDS: 0.9% Normal Saline 1,000 ML 100 ML IV (09:31)
--- NOTE | 2023-05-29 09:55 | CASEMGMT ---
KARYN HOOKS Face to Face with patient for initial transition planning/care coordination assessment. RN NEVA introduced self and role at [facility]. Patient lying in bed, alert and oriented, at bedside. Patient willing to participate in assessment and is able to answer all questions appropriately.? Care providers, pharmacy, and demographics verified. Patient wishes to discharge home, denies need for home health at this time.? Patient states she has no further needs or concerns at this time. CM to follow for discharge planning needs that may arise. PCP: Neel Specialists:None Preferred Pharmacy:[facility] Insurance:[place] Prescription Benefit: Yes Living Will/HPOA:No LNOK:, [place] Living Arrangements:Patient lives with and two children in a split-level home with 6 steps to enter and 6 steps to the second story, both with railings. Patient is independent and able to ambulate stairs. Transportation:Self and DME/HHC:Patient's states they have grab bars in the shower and a BP cuff. Will monitor for DME needs at discharge. Patient denies any previous SNF or HHC. Disposition Plan:Patient to discharge home with family support and follow-up plans in place. Nicole YOUSIF, RN, CM
--- NOTE | 2023-05-29 15:43 | PN_ITS ---
Subjective Subjective Patient seen and examined. She had no active complaints. Asthma was by her bedside. She had cardiac cath today and required PCI with stent placement. Review systems otherwise negative. Objective Data Objective Data Vital Signs: Vital Signs Temp Pulse Resp BP Pulse Ox O2 Del Method 98.6 F 74 18 102/56 L 99 Room Air 05/29/23 11:34 05/29/23 14:00 05/29/23 14:00 05/29/23 11:34 05/29/23 14:00 05/29/23 14:00 Oxygen Delivery Method Room Air Weight: 303 lb 2.17 oz Body Mass Index (BMI) 47.5 Intake & Output: Intake and Output for Last 24 Hours 05/27/23 05/28/23 05/29/23 23:59 23:59 23:59 Intake Total 558.65 / 1184.65 1891.52 / 2131.52 801.35 / 801.35 Balance 558.65 / 1184.65 1891.52 / 2131.52 801.35 / 801.35 Lab / Micro Data 05/29/23 06:30 05/29/23 06:30 Labs: Laboratory Results - last 24 hr 05/28/23 17:37: APTT 46.9 H 05/29/23 00:33: APTT 57.0 H 05/29/23 06:30: WBC 10.5, RBC 4.45, Hgb 12.6, Hct 39.1, MCV 87.9, MCH 28.3, MCHC 32.2, RDW Std Deviation 44.8 H, RDW Coeff of Kortney 14.3, Plt Count 238, MPV 10.2, APTT 52.0 H, Sodium 138, Potassium 3.7, Chloride 110 H, Carbon Dioxide 22.0, Anion Gap 6, BUN 10, Creatinine 0.95, Estim Creat Clear Calc 73.49, Est GFR (MDRD) Af Amer 82, Est GFR (MDRD) Non-Af 68, BUN/Creatinine Ratio 10.5, Glucose 99, Calcium 8.6, Phosphorus 2.9, Magnesium 2.1, Triglycerides 327 H, Cholesterol 224 H, LDL Cholesterol 118, VLDL Cholesterol 65 H, HDL Cholesterol 41 Rhythm Strip Rhythm Strip: Sinus Rhythm Physical Exam Const alert, oriented x3 and no apparent distress Constitutional Narrative: super morid obesity HEENT normocephalic, head/scalp atraumatic, moist oral mucous membranes and oropharynx normal Eyes PERRL Neck no lymphadenopathy, supple and no JVD Lymph Lymphatic: no lymphadenopathy noted and no lymphedema noted Resp normal respiratory effort, normal air movement and clear to auscultation bilaterally Cardio regular rate, regular rhythm, S1 normal heart sound, S2 normal heart sound and no murmurs GI normal to inspection, nondistended, normoactive bowel sounds, soft to palpation and non-tender Extremity normal capillary refill, no clubbing, cyanosis or edema and no calf tenderness Skin General Skin Exam: no breakdown and turgor normal Neuro CN's II-XII intact bilaterally, no focal motor deficits, no sensory deficits noted and deep tendon reflexes 2+ bilaterally Psych thought process normal, cooperative and affect normal Appearance: appropriate Assessment & Plan Assessment/Plan (1) Dyslipidemia: (2) NSTEMI, initial episode of care: PLAN: Plan #NONstemi * s/p cardiac cath which showed 99% occlusion of the mid LAD, 60% proximal RCA and 50% proximal rami occlusion. He had successful TRINA to the mid LAD. * To be on aspirin indefinitely and Brilinta for at least 12 months * Patient is allergic to statins. * 2D echo done and read is pending. * On low-dose carvedilol and lisinopril * She was placed on atorvastatin 40 mg nightly by cardiology which seems she tolerated last night so we will monitor and see if she tolerates. * #GERD: On PPI * * DVT prophylaxis: SCDs Disposition: Anticipate to discharge home tomorrow if she remains clinically stable. Charges/Coding Visit Charges Inpatient E&M: 99316 Subs Hosp L2
[2023-05-29] MEDS: Acetaminophen 325 MG Tablet 650 MG PO (16:34)
[2023-05-29] MEDS: Ondansetron 4 MG/2 ML Vial IV (18:18)
[2023-05-29] MEDS: Topiramate 100 MG Tablet PO (21:32)
[2023-05-30 03:30] VITALS: BP 127/73; PULSE 68; RESP 18; TEMP 36.7; O2SAT 97
[2023-05-30 05:39] LABS: Hematocrit 38.7 % (37-47); Hemoglobin 12.3 g/dL (12.0-15.0); Mean Corp Hgb Conc 31.8 g/dL (32-36); Mean Corpuscular Hgb 28.4 pg (27.0-32.0); Mean Corpuscular Volume 89.4 fL (81-99); Mean Platelet Vol. 10.6 fl (6.2-12.0); Platelet Count 245 K/mm3 (150-450); RBC Distribution Width CV 14.2 % (11.6-14.6); RBC Distribution Width SD 45.1 fl (35.1-43.9); Red Blood Count 4.33 M/mm3 (4.2-5.4)
[2023-05-30 06:14] LABS: ALB/GLOB Ratio 0.8 RATIO (0.9-2.4); AST(SGOT) 16 U/L (15-37); Alanine Aminotransfer ALT/SGPT 21 U/L (13-56); Albumin, Serum 2.9 g/dL (3.2-5.0); Alkaline Phosphatase 83 U/L (45-117); Anion Gap 7 (5-15); BUN 8 mg/dL (7-18); BUN/Creat Ratio 8.8 RATIO (10-20); Calcium,Total 9.6 mg/dL (8.5-10.1); Chloride 108 mmol/L (98-107); Creatinine, Serum 0.91 mg/dL (0.55-1.02); EST Glomerular Filtration Rate 72 mL/min (>60); Est Glom Filt Rate - Afr Amer 87 mL/min (>60); Estimated Creatinine Clearance 76.72 ml/min; Globulin 3.8 g/dL (2.2-4.2); Glucose 94 mg/dL (74-106); Potassium 3.9 mmol/L (3.5-5.1); Protein, Total 6.7 g/dL (6.4-8.2); Sodium Level 137 mmol/L (136-145)
--- NOTE | 2023-05-30 07:30 | EKG12_ITS ---
Test Reason : AM EKG Blood Pressure : / mmHG Vent. Rate : 065 BPM Atrial Rate : 065 BPM P-R Int : 154 ms QRS Dur : 084 ms QT Int : 444 ms P-R-T Axes : 051 007 095 degrees QTc Int : 461 ms Normal sinus rhythm ST & T wave abnormality, consider anterolateral ischemia Prolonged QT Abnormal ECG When compared with ECG of 29-MAY-2023 08:21, MANUAL COMPARISON REQUIRED, DATA IS UNCONFIRMED Confirmed by HAYDEE BERKOWITZ, LUIS ([id number]), senior technical editor MARIJA LANGE ([id number]) on 07/17/2023 1:03:33 PM Referred By: Confirmed By:LIUS HUBBARD MD
[2023-05-30 08:16] LABS: ACT Activated Clotting Time 149 sec (74-137)
[2023-05-30 08:17] LABS: ACT Activated Clotting Time 287 sec (74-137)
[2023-05-30 11:19] VITALS: O2SAT 96
[2023-05-30 11:37] VITALS: BP 115/69; PULSE 66; RESP 16; TEMP 36.8; O2SAT 96
[2023-05-30] MEDS: Aspirin E.C. 81 MG Tablet PO (11:42)
[2023-05-30] MEDS: Carvedilol 3.125 MG TABLET PO (11:42)
[2023-05-30] MEDS: TICAGRELOR 90 MG TABLET PO (11:42)
[2023-05-30] MEDS: Folic Acid 1 MG Tablet 0.5 MG PO (11:42)
[2023-05-30] MEDS: Fluoxetine HCl 40 MG CAPSULE PO (11:43)
[2023-05-30] MEDS: Magnesium Chloride 64 MG Delay Rel.Tablet 128 MG PO (11:43)
[2023-05-30] MEDS: Montelukast 10 MG Tablet PO (11:43)
[2023-05-30] MEDS: Lisinopril 2.5 MG Tablet PO (11:43)
--- NOTE | 2023-05-30 11:59 | DCINST_ITS ---
Discharge Instructions Diet Discharge Diet: Low fat / Low cholesterol Activity Discharge Activity: Return to Normal Activity Weight Bearing Status: Weight bearing as tolerated Dressing / Incision Call your doctor if you observe: Fever of 101 or Higher, Shortness of breath, Dizziness, Swelling in the ankles and Chest pain Follow Up Care Test Results: Test results from this visit will be discussed in further detail at your follow- up appointment, if applicable. Discharge Plan Admission Admit Date/Time: 05/27/23 18:15 Primary Reason for Your Visit: unstable angina Attending Provider: Adilia Carty Primary Care Provider: Sujey Shaikh Consulting Providers: Geoff Chao; Vimal Colon; Onofre Dobbs Instructions Patient Instructions: First Aid: Heart Attacks, Heart Attack Dc, Exercising After a Heart Attack, Heart Attack Meds Discharge Orders/Prescriptions Prescriptions: New atorvastatin 40 mg Tablet 40 mg PO QHS Qty: 30 2RF aspirin 81 mg Tablet,Delayed Release (Dr/Ec) 81 mg PO BREAKFAST Qty: 30 2RF carvedilol 3.125 mg Tablet 3.125 mg PO BID Qty: 60 2RF lisinopril 2.5 mg Tablet 2.5 mg PO DAILY Qty: 30 2RF Brilinta 90 mg Tablet 90 mg PO BID Qty: 60 2RF Continued vitamin B complex Capsule 1 cap PO DAILY magnesium oxide 500 mg capsule 500 mg PO DAILY fluoxetine 40 mg capsule 40 mg PO DAILY methylprednisolone [Medrol ([place])] 4 mg tablets,dose pack See Rx Instructions PO PER PKG DIR Qty: 21 0RF Hold Instructions: Pt has been DC'd Rx Instructions: PO PER PKG DIR benzonatate 200 mg capsule 200 mg PO TID PRN (Reason: cough) Qty: 20 0RF Hold Instructions: Pt has been DC'd folic acid 0.4 MG tablet 0.4 mg PO DAILY@0800 multivitamin with folic acid 1 TABLET tablet 1 tab PO DAILY calcium carbonate-vitamin D3 1 TAB tablet 1 tab PO DAILY@0800 montelukast 4 MG tablet,chewable 10 mg PO DAILY topiramate 25 tablet 100 mg PO DAILY Patient Comments: pantoprazole 40 MG tablet 40 mg PO DAILY Hold Instructions: Pt has been DC'd lorazepam 1 tablet 1 tab PO DAILY PRN (Reason: Anxiety) Patient Comments: diclofenac epolamine 1.3 patch 1 patch TOPICAL PRN PRN (Reason: Pain) Patient Comments: albuterol sulfate 1 PUFF inhaler 1 - 2 puff INHALATION Q6H PRN PRN (Reason: Allergies) Discontinued doxycycline hyclate 100 mg capsule 100 mg PO BID Hold Instructions: Pt has been DC'd Referrals / Follow Up: Geoff Chao MD [Med Staff - Active Staff] - Within 1 Week Sujey Shaikh DO [Primary Care Provider] - In 1 Week Disposition Disposition (needs filled in before D/C Order can be placed): Home, Self Care
--- NOTE | 2023-05-30 12:00 | PCM.DC.SUM ---
Providers Date of Admission: 05/27/23 Date of Discharge: 05/30/23 Primary Care Physician: Dr. Sujey Shaikh, DO Consultations 05/27/23 17:53 Consult: Cardiology Routine Consulting Provider: Geoff Chao Reason for Consult: Chest pain, concern for NSTEMI type I EMERGENT Consult: No MD Notified: Yes Date Notified: 05/27/23 Time Notified: 18:27 Method of Notification: Text Reason For Visit: CHEST PAIN Diagnosis Discharge Diagnosis (1) Dyslipidemia: Status: Acute Code(s): E78.5 - Hyperlipidemia, unspecified (2) NSTEMI, initial episode of care: Status: Acute Code(s): I21.4 - Non-ST elevation (NSTEMI) myocardial infarction Plan #NONstemi s/p cardiac cath which showed 99% occlusion of the mid LAD, 60% proximal RCA and 50% proximal rami occlusion. He had successful TRINA to the mid LAD. To be on aspirin indefinitely and Brilinta for at least 12 months Patient is allergic to statins. 2D echo done and read is pending. On low-dose carvedilol and lisinopril She was placed on atorvastatin 40 mg nightly by cardiology which seems she tolerated last night so we will monitor and see if she tolerates. #GERD: On PPI DVT prophylaxis: SCDs Disposition: Anticipate to discharge home tomorrow if she remains clinically stable. Medications at Discharge Home Medications calcium carbonate 600 mg-vitamin D3 20 mcg (800 unit) tablet 1 tab PO DAILY@0800 03/11/14 folic acid 400 mcg tablet 0.4 mg PO DAILY@0800 03/11/14 multivitamin with folic acid 400 mcg tablet 1 tab PO DAILY 03/11/14 diclofenac epolamine 1.3 % transdermal 12 hour patch 1 patch topical PRN PRN Pain 04/12/18 lorazepam 1 mg tablet 1 tab PO DAILY PRN Anxiety 04/12/18 montelukast 4 mg chewable tablet 10 mg PO DAILY 04/12/18 pantoprazole 40 mg tablet,delayed release 40 mg PO DAILY 04/12/18 topiramate 25 mg tablet 100 mg PO DAILY 04/12/18 magnesium oxide 500 mg capsule 500 mg PO DAILY 11/06/20 vitamin B complex 1 cap PO DAILY 11/06/20 albuterol sulfate 90 mcg/actuation aerosol inhaler 1 - 2 puff inhalation Q6H PRN PRN Allergies 12/25/20 fluoxetine 40 mg capsule 40 mg PO DAILY 11/07/22 benzonatate 200 mg capsule 200 mg PO TID PRN cough #20 caps 01/23/23 methylprednisolone 4 mg tablets in a dose pack (Medrol ([place])) See Rx Instructions PO PER PKG DIR #21 tabs 01/23/23 aspirin 81 mg tablet,delayed release 81 mg PO BREAKFAST #30 tabs 05/30/23 carvedilol 3.125 mg tablet 3.125 mg PO BID #60 tabs 05/30/23 lisinopril 2.5 mg tablet 2.5 mg PO DAILY #30 tabs 05/30/23 ticagrelor 90 mg tablet (Brilinta) 90 mg PO BID #60 tabs 05/30/23 Hospital Course Operations None Procedures 2-D Echocardiogram and Cardiac catheterization Summary of Care Provided Minutes Spent on Discharge: 55 Hospital Course: Patient is a 42-year-old female with a past medical history of factor V Leiden mutation, anxiety and depression as well as GERD and seasonal allergies. She came to the ED on 05/27/2023 with a complaint of chest pain. Chest pain is started earlier in the day of admission and denied any shortness of breath with exertion. He felt the chest pain was more like a pressure pain and radiated to her left jaw. On admission initial troponin was 504 and chest x-ray showed no acute findings. She was admitted and managed for non-STEMI. Cardiology was consulted. She was started on heparin drip and aspirin. Troponins trended upwards to a peak of 2698. Lipid panel also showed elevated cholesterol levels. She said her PCP had tried her on 2 different statin medications but she did not tolerate them as she got hives and hypotension with them. She had cardiac cath which showed 99% occlusion of the mid LAD, 60% proximal RCA and 50% proximal rami occlusion. She had successful TRINA to the mid LAD. She was placed on aspirin and Brilinta. She was allergic to statins and refused to take it. 2D echo done showed EF of 65% with no regional wall motion abnormalities. She was placed on low-dose carvedilol and lisinopril. She had apparently been refusing to take the atorvastatin was in the hospital. She was therefore discharged home on 05/30/2023 on p.o. aspirin and Brilinta as well as carvedilol and lisinopril. I did discuss with cardiology about any alternative recommendations for cholesterol medication but per cardiology, since she did not tolerate atorvastatin and did not want to take it, she would be discharged on no statin medication. She is to follow-up with her primary care doctor and cardiology within 1 week. Patient seen and examined prior to discharge she had no active complaints and had an uneventful night. Review of systems otherwise negative. Labs and vitals reviewed. Home medication reviewed and reconciled. Physical Exam Const alert, oriented x3 and no apparent distress Constitutional Narrative: super morbid obesity General Appearance: cooperative HEENT normocephalic, head/scalp atraumatic, hearing grossly normal bilaterally, nasal mucous membranes and turbinates normal, moist oral mucous membranes and oropharynx normal Eyes PERRL, EOMs intact bilaterally and conjunctivae normal Neck full ROM, no lymphadenopathy, supple and no JVD Lymph Lymphatic: no lymphadenopathy noted and no lymphedema noted Chest inspection of chest normal Resp normal respiratory effort, normal air movement, no use of accessory muscles and clear to auscultation bilaterally Cardio regular rate, regular rhythm, S1 normal heart sound, S2 normal heart sound, no murmurs and peripheral pulses 2+ throughout GI normal to inspection, nondistended, normoactive bowel sounds, soft to palpation, non-tender and non-distended Back/Spine normal ROM Extremity normal to inspection, full ROM, normal capillary refill, no clubbing, cyanosis or edema, no calf tenderness and no pedal edema Skin no rashes or lesions noted General Skin Exam: no breakdown and turgor normal Neuro oriented x3, CN's II-XII intact bilaterally, moves all extremities, no focal motor deficits, no sensory deficits noted and deep tendon reflexes 2+ bilaterally Psych mental status grossly normal, thought process normal, cooperative and affect normal Appearance: appropriate Weight / BMI Weight Weight: 303 lb 2.17 oz Body Mass Index (BMI) 47.5 ABG / Lab / Microbiology Data 05/30/23 04:30 05/30/23 04:30 Laboratory: Laboratory Results - last 24 hr 05/27/23 06:55: Activated Clotting Time 149 H 05/27/23 07:25: Activated Clotting Time 287 H 05/30/23 04:30: WBC 10.0, RBC 4.33, Hgb 12.3, Hct 38.7, MCV 89.4, MCH 28.4, MCHC 31.8 L, RDW Std Deviation 45.1 H, RDW Coeff of Kortney 14.2, Plt Count 245, MPV 10.6, Sodium 137, Potassium 3.9, Chloride 108 H, Carbon Dioxide 22.0, Anion Gap 7, BUN 8, Creatinine 0.91, Estim Creat Clear Calc 76.72, Est GFR (MDRD) Af Amer 87, Est GFR (MDRD) Non-Af 72, BUN/Creatinine Ratio 8.8 L, Glucose 94, Calcium 9.6, Total Bilirubin 0.30, AST 16, ALT 21, Alkaline Phosphatase 83, Total Protein 6.7, Albumin 2.9 L, Globulin 3.8, Albumin/Globulin Ratio 0.8 L Radiography Diagnostic Testing: Radiology Impression Echocardiogram 05/27/23 17:53 Interpretation Summary The estimated ejection fraction is 55 %. Hypokinetic apex. The study was technically difficult. Contrast injection was performed. Ordering Physician: Vimal Colon Referring Physician: Sujey Shaikh Performed By: Vinay Boland RCS D/C Instructions Discharge Diet: Low fat / Low cholesterol Weight Bearing Status: Weight bearing as tolerated Call your doctor if you observe: Fever of 101 or Higher, Shortness of breath, Dizziness, Swelling in the ankles and Chest pain Meaningful Use Info Meaningful Use Diagnoses (Choose all that apply): AMI AMI/Post PCI/Angioplasty Aspirin given w/in 24hrs of arrival?: Yes ASA at discharge?: Yes Antiplatelet Therapy at Discharge:: Yes Statins at discharge?: No Reason statins not ordered:: Allergy Rocky/ARB at discharge?: Yes Beta Demarco at discharge?: Yes Done w/ Acute VA measure.: Yes Documented LVEF (%): 65 Discharge Plan Admission Admit Date/Time: 05/27/23 18:15 Primary Reason for Your Visit: heart attack Attending Provider: Adilia Carty Primary Care Provider: Sujey Shaikh Consulting Providers: Geoff Chao; Vimal Colon; Onofre Dobbs Instructions Forms: Work Excuse, Work / School Excuse Patient Instructions: First Aid: Heart Attacks, Heart Attack Dc, Exercising After a Heart Attack, Heart Attack Meds Discharge Orders/Prescriptions Prescriptions: New aspirin 81 mg Tablet,Delayed Release (Dr/Ec) 81 mg PO BREAKFAST Qty: 30 2RF carvedilol 3.125 mg Tablet 3.125 mg PO BID Qty: 60 2RF lisinopril 2.5 mg Tablet 2.5 mg PO DAILY Qty: 30 2RF Brilinta 90 mg Tablet 90 mg PO BID Qty: 60 2RF Continued vitamin B complex Capsule 1 cap PO DAILY magnesium oxide 500 mg capsule 500 mg PO DAILY fluoxetine 40 mg capsule 40 mg PO DAILY methylprednisolone [Medrol ([place])] 4 mg tablets,dose pack See Rx Instructions PO PER PKG DIR Qty: 21 0RF Hold Instructions: Pt has been DC'd Rx Instructions: PO PER PKG DIR benzonatate 200 mg capsule 200 mg PO TID PRN (Reason: cough) Qty: 20 0RF Hold Instructions: Pt has been DC'd folic acid 0.4 MG tablet 0.4 mg PO DAILY@0800 multivitamin with folic acid 1 TABLET tablet 1 tab PO DAILY calcium carbonate-vitamin D3 1 TAB tablet 1 tab PO DAILY@0800 montelukast 4 MG tablet,chewable 10 mg PO DAILY topiramate 25 tablet 100 mg PO DAILY Patient Comments: pantoprazole 40 MG tablet 40 mg PO DAILY Hold Instructions: Pt has been DC'd lorazepam 1 tablet 1 tab PO DAILY PRN (Reason: Anxiety) Patient Comments: diclofenac epolamine 1.3 patch 1 patch TOPICAL PRN PRN (Reason: Pain) Patient Comments: albuterol sulfate 1 PUFF inhaler 1 - 2 puff INHALATION Q6H PRN PRN (Reason: Allergies) Discontinued doxycycline hyclate 100 mg capsule 100 mg PO BID Hold Instructions: Pt has been DC'd Referrals / Follow Up: Geoff Chao MD [Med Staff - Active Staff] - Within 1 Week Sujey Shaikh DO [Primary Care Provider] - Within 2 Weeks (Please call the office to schedule an appt) Disposition Disposition (needs filled in before D/C Order can be placed): Home, Self Care Charges/Coding Visit Charges Inpatient E&M: 90161 Disch Hosp >30min
--- NOTE | 2023-05-30 15:06 | CASEMGMT ---
Patient has order for discharge and discharging on Brilinta. KARYN HOOKS called Sara to verify copay. Copay is $199.29, Brilinta savings cards provided to patient. Patient denies needs at discharge. Patient denied further questions or concerns.
--- NOTE | 2023-05-30 15:17 | PHA.DC.MC.R ---
Pharmacy [facility] has performed discharge medication reconciliation and counseling for this patient. The patient was counseled on the following discharge medications and changes in medications for homegoing were reviewed. 1. ASPIRIN 2. BRILINTA 3. COREG 4. LISINOPRIL The Reason for Use, instructions for use, and potential side effects were reviewed for all new medications. The patient's questions regarding all of their medications were answered. The patient was able to verbally demonstrate an understanding of their discharge medications. The patient's discharge medication list was reviewed for discrepancies and discrepancies were resolved. Patient was counselled by Marisol Triana PharmD Candidate Medications at Discharge Home Medications calcium carbonate 600 mg-vitamin D3 20 mcg (800 unit) tablet 1 tab PO DAILY@0800 03/11/14 folic acid 400 mcg tablet 0.4 mg PO DAILY@0803/11/14 multivitamin with folic acid 400 mcg tablet 1 tab PO DAILY 03/11/14 diclofenac epolamine 1.3 % transdermal 12 hour patch 1 patch topical PRN PRN Pain 04/12/18 lorazepam 1 mg tablet 1 tab PO DAILY PRN Anxiety 04/12/18 montelukast 4 mg chewable tablet 10 mg PO DAILY 04/12/18 pantoprazole 40 mg tablet,delayed release 40 mg PO DAILY 04/12/18 topiramate 25 mg tablet 100 mg PO DAILY 04/12/18 magnesium oxide 500 mg capsule 500 mg PO DAILY 11/06/20 vitamin B complex 1 cap PO DAILY 11/06/20 albuterol sulfate 90 mcg/actuation aerosol inhaler 1 - 2 puff inhalation Q6H PRN PRN Allergies 12/25/20 fluoxetine 40 mg capsule 40 mg PO DAILY 11/07/22 benzonatate 200 mg capsule 200 mg PO TID PRN cough #20 caps 01/23/23 methylprednisolone 4 mg tablets in a dose pack (Medrol ([place])) See Rx Instructions PO PER PKG DIR #21 tabs 01/23/23 aspirin 81 mg tablet,delayed release 81 mg PO BREAKFAST #30 tabs 05/30/23 carvedilol 3.125 mg tablet 3.125 mg PO BID #60 tabs 05/30/23 lisinopril 2.5 mg tablet 2.5 mg PO DAILY #30 tabs 05/30/23 ticagrelor 90 mg tablet (Brilinta) 90 mg PO BID #60 tabs 05/30/23
== END 2023-05-30 15:00 | disposition home or self-care (01) | DRG 247 ==
LOC: ED 15:56 → PCU 16:34
PROVIDERS: Internal Medicine; Internal Medicine Cardiovascular Disease; Admitting Provider Hospitalist; Emergency Provider Emergency Medicine; PCP Family Medicine; Visit Provider Student in an Organized Health Care Education/Training Program
DX: I21.4 Non-ST elevation (NSTEMI) myocardial infarction (principal); D68.51 Activated protein C resistance; Z68.42 Body mass index [BMI] 45.0-49.9, adult; E66.01 Morbid (severe) obesity due to excess calories; F32.A Depression, unspecified; E78.5 Hyperlipidemia, unspecified; F41.8 Other specified anxiety disorders; K21.9 Gastro-esophageal reflux disease without esophagitis; G43.909 Migraine, unspecified, not intractable, without status migrainosus; F41.9 Anxiety disorder, unspecified; Z79.01 Long term (current) use of anticoagulants; Z79.82 Long term (current) use of aspirin; Z95.5 Presence of coronary angioplasty implant and graft
CPT/HCPCS: 36415; 71045; 80048; 80053; 80061; 83036; 83735; 84100; 84484; 85025; 85027; 85347; 85379; 85610; 85730; 92928; 93005; 93306; 93454; 97802; 99152; 99153; 99284; J7030; J7040; Q9957; Q9967; A4216; C1725; C1769; C1874; C1887; C1894; C8929; C9600; J2405

== ENCOUNTER → 2023-06-14 | Outpatient (CLI) | payer BC, SELFPAY ==
[2023-06-14 11:11] LABS: Hematocrit 40.2 % (37-47); Hemoglobin 13.2 g/dL (12.0-15.0); Mean Corp Hgb Conc 32.8 g/dL (32-36); Mean Corpuscular Hgb 28.5 pg (27.0-32.0); Mean Corpuscular Volume 86.8 fL (81-99); Mean Platelet Vol. 10.4 fl (6.2-12.0); Platelet Count 284 K/mm3 (150-450); RBC Distribution Width CV 14.1 % (11.6-14.6); RBC Distribution Width SD 44.1 fl (35.1-43.9); Red Blood Count 4.63 M/mm3 (4.2-5.4); White Blood Count 8.2 K/mm3 (4.4-11.0)
== END | disposition home or self-care (01) ==
PROVIDERS: PCP Family Medicine; Referring Provider Internal Medicine Cardiovascular Disease; Visit Provider Internal Medicine Cardiovascular Disease
DX: R23.3 Spontaneous ecchymoses (principal); I25.10 Atherosclerotic heart disease of native coronary artery without angina pectoris
CPT/HCPCS: 36415; 85027

== ENCOUNTER 2023-09-07 17:05 | Emergency (ER) | payer BC, SELFPAY ==
[2023-09-07 17:07] VITALS: BP 134/103; PULSE 118; RESP 19; TEMP 36.2; O2SAT 98; BMI 44.6
--- NOTE | 2023-09-07 17:30 | RAD_ITS ---
STUDY: X-RAY CHEST REASON FOR EXAM: Female, 43 years old. chest pain TECHNIQUE: Single AP portable view of the chest. COMPARISON: 05/27/2023 FINDINGS: The lungs are clear and expanded. There is no demonstrated pleural abnormality. Normal size heart. Normal mediastinum and jonas. Normal visualized pulmonary arteries. Normal visualized aortic arch and descending thoracic aorta. Normal visualized thoracic spine. Normal visualized ribs, clavicles, and shoulders. There is no demonstrated abnormality of the visualized soft tissue structures of the upper abdomen. RAD/Chest 1 View (Portable) IMPRESSION: Normal x-ray examination of the chest. Electronically Signed: Fernando Dean MD at 18:19 EST ,
[2023-09-07 17:43] VITALS: RESP 16; O2SAT 99
[2023-09-07 17:51] LABS: Absolute Lymphocyte Count 0.83 X10^3/uL (0.83-4.51); Absolute Neutrophil Count 6.2 X10^3/uL (2.0-7.7); Basophil# 0.02 X10^3/uL; Basophil% 0.3 % (0-1); Eosinophil# 0.08 X10^3/uL; Eosinophils% 1.1 % (0-5); Hemoglobin 13.9 g/dL (12.0-15.0); Lymphocyte # 0.83 X10^3/ul (0.83-4.51); Lymphocyte % 11.2 % (19-41); Mean Corp Hgb Conc 32.3 g/dL (32-36); Mean Corpuscular Hgb 28.2 pg (27.0-32.0); Mean Corpuscular Volume 87.2 fL (81-99); Mean Platelet Vol. 10.4 fl (6.2-12.0); Monocyte# 0.25 X10^3/uL; Monocyte% 3.4 % (0-10); NRBC Flagged by Analyzer 0 % (0-5); Neutrophil % 83.6 % (47-70); Platelet Count 230 K/mm3 (150-450); RBC Distribution Width CV 13.7 % (11.6-14.6); RBC Distribution Width SD 43.3 fl (35.1-43.9); Red Blood Count 4.93 M/mm3 (4.2-5.4); White Blood Count 7.4 K/mm3 (4.4-11.0)
[2023-09-07 18:05] LABS: Anion Gap 8 (5-15); BUN 14 mg/dL (7-18); BUN/Creat Ratio 10.7 RATIO (10-20); Calcium,Total 8.9 mg/dL (8.5-10.1); Chloride 107 mmol/L (98-107); Creatinine, Serum 1.31 mg/dL (0.55-1.02); EST Glomerular Filtration Rate 47 mL/min (>60); Est Glom Filt Rate - Afr Amer 56 mL/min (>60); Estimated Creatinine Clearance 52.74 ml/min; Glucose 125 mg/dL (74-106); Sodium Level 134 mmol/L (136-145); Troponin-I HS (w/2H Reflex) 3 pg/mL (3.0-54.0)
[2023-09-07 19:44] LABS: Reflex Troponin-HS? (from REC) Y
[2023-09-07] MEDS: Ondansetron 4 MG/2 ML Vial IV (20:09)
[2023-09-07 20:30] VITALS: PULSE 90; RESP 16
[2023-09-07 20:49] LABS: Troponin-I HS 4 pg/mL (3.0-54.0)
[2023-09-07 20:55] VITALS: BP 130/78; PULSE 67; RESP 16; TEMP 36.9
--- NOTE | 2023-09-07 23:44 | EDS_ITS ---
HPI History of Present Illness Chief Complaint: Chest Pain Narrative Narrative: Patient presenting with viral symptoms which started about 5 days ago. Patient states that she was seen today and diagnosed with COVID-19. She states that she went to the urgent care and they gave her Decadron and upon taking this she started to have abdominal pain and right upper chest pain which is now resolved. Patient denies being hypoxic. She denies history of wheezing. Patient does have history of cardiac issues and recently had cardiac stent 05/21/2023 in which he started have chest pain she was concerned and came to the ER for evaluation. 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) Cellulitis of left forearm Class 3 obesity Contact with or suspected exposure to other viral communicable disease Depression Dyslipidemia Factor 5 Leiden mutation, heterozygous Factor 5 Leiden mutation, heterozygous GERD (gastroesophageal reflux disease) GERD (gastroesophageal reflux disease) History of PCOS Hx of migraines Hypercholesterolemia Migraines NSTEMI, initial episode of care Obesity PCOS (polycystic ovarian syndrome) Seasonal allergies Home Medications calcium carbonate 600 mg-vitamin D3 20 mcg (800 unit) tablet 1 tab PO DAILY@0800 SUPPLEMENT 03/11/14 [History Last Taken 03/12/14 20:00 1 TAB] folic acid 400 mcg tablet 0.4 mg PO DAILY@0800 SUPPLEMENT 03/11/14 [History Last Taken 03/12/14 20:00 0.4 MG] multivitamin with folic acid 400 mcg tablet 1 tab PO DAILY SUPPLEMENT 03/11/14 [History Last Taken 03/12/14 20:00 1 TABLET] diclofenac epolamine 1.3 % transdermal 12 hour patch 1 patch topical DAILY PRN PAIN 04/12/18 [History Last Taken Unknown] lorazepam 1 mg tablet 1 tab PO Q8H PRN ANXIETY 04/12/18 [History Last Taken U nknown] montelukast 4 mg chewable tablet 10 mg PO DAILY ASTHMA 04/12/18 [History Last Taken Unknown] magnesium oxide 500 mg capsule 500 mg PO DAILY SUPPLEMENT 11/06/20 [History Last Taken Unknown] vitamin B complex 1 cap PO DAILY SUPPLEMENT 11/06/20 [History Last Taken Unknown] albuterol sulfate 90 mcg/actuation aerosol inhaler 1 - 2 puff inhalation Q6H PRN SHORTNES OF BREATH 12/25/20 [History Last Taken Unknown] fluoxetine 40 mg capsule 40 mg PO DAILY FLUID 11/07/22 [History Last Taken Unknown] topiramate 100 mg tablet 100 mg PO DAILY EPILEPSY 06/13/23 [History Last Taken Unknown] evolocumab 140 mg/mL subcutaneous pen injector (Gardenia MerazRoscoe) 140 mg subcut QMONTH CHOLESTEROL #2 mL 06/14/23 [Rx Last Taken Unknown] aspirin 81 mg tablet,delayed release 81 mg PO BREAKFAST HEART HEALTH #90 tabs 08/18/23 [Rx Last Taken Unknown] carvedilol 3.125 mg tablet 3.125 mg PO BID HEART #180 tabs 08/18/23 [Rx Last Taken Unknown] lisinopril 2.5 mg tablet 2.5 mg PO DAILY BLOOD PRESSURE #90 tabs 08/18/23 [Rx Last Taken Unknown] ticagrelor 90 mg tablet (Brilinta) 90 mg PO BID BLOOD THINNER #180 tabs 08/18/23 [Rx Last Taken Unknown] benzonatate 100 mg capsule 100 mg PO TID PRN cough #20 caps 09/07/23 [Rx Last Taken Unknown] dexamethasone 6 mg tablet 6 mg PO DAILY ARTHRITIS #5 tabs 09/07/23 [Rx Last Taken Unknown] Allergy/AdvReac Type Severity Reaction Status Date / Time Bhztlct-WTH-QyU Reductase Allergy Severe Other Verified 09/07/23 17:06 Inhibitor buspirone [From BuSpar] Allergy Chest Verified 09/07/23 17:06 tightness ciprofloxacin [From Cipro] Allergy Hives Verified 09/07/23 17:06 ciprofloxacin HCl Allergy Hives Verified 09/07/23 17:06 [From Cipro] dichloralphenazone Allergy Chest Verified 09/07/23 17:06 [From Midrin] tightness isometheptene mucate Allergy Chest Verified 09/07/23 17:06 [From Midrin] tightness nortriptyline [Nortriptyline] Allergy Chest Verified 09/07/23 17:06 tightness Family History Father Factor 5 Leiden mutation, heterozygous Brother Factor 5 Leiden mutation, heterozygous Daughter Factor 5 Leiden mutation, heterozygous Surgical History delivery delivered H/O lithotripsy H/O: hysterectomy History of carpal tunnel surgery History of cholecystectomy History of LAVH Hx of fasciotomy Stented coronary artery (05/29/23) Social History Smoking Status: Never smoker alcohol intake: current details: social substance use type: does not use caffeine: No what type of physical activity do you participate in: walking frequency: 1-2 times per week seatbelt use: always do you feel safe at home: Yes additional social history: [employer] 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 ROS ROS ED Constitutional Constitutional ED: Denies chills, fever(s) or sweats Eyes Eyes: Denies blurry vision or change in vision ENT ENT ED: Denies ear pain or sore throat Cardiovascular Cardiovascular: Reports chest pain; Denies palpitations or racing heartbeat Respiratory/Chest Respiratory/Chest: Reports cough and dyspnea; Denies sputum Gastrointestinal Gastrointestinal: Denies abdominal pain, constipation, diarrhea, nausea or vomiting Genitourinary Genitourinary ED: Denies dysuria, hematuria or urinary frequency Musculoskeletal Musculoskeletal: Denies arthralgias, myalgias or neck pain Integumentary Denies abscess, Abrasions or rash Neurologic Neurologic: Denies headache(s), paresthesias or weakness Psychiatric Psychiatric: Denies anxiety, depression, suicidal ideation or suicidal thoughts Endocrine Endocrinology: Denies polydipsia or polyuria EXAM Physical Exam Const Vital Signs: 09/07/23 17:07 09/07/23 17:43 09/07/23 17:43 Temperature 97.2 F L Temperature Source Temporal Pulse Rate 118 H Respiratory Rate 19 H 16 Respiratory Effort Blood Pressure 134/103 H Blood Pressure Mean 113 Pulse Ox 98 99 99 Oxygen Delivery Method Room Air Room Air Room Air 09/07/23 17:43 09/07/23 20:55 09/07/23 20:55 Temperature 98.4 F Temperature Source Oral Pulse Rate 67 67 Respiratory Rate 16 16 Respiratory Effort Normal Non-Labored Blood Pressure 130/78 H Blood Pressure Mean 95 Pulse Ox Oxygen Delivery Method Room Air Room Air 09/07/23 20:30 Temperature Temperature Source Pulse Rate 90 Respiratory Rate 16 Respiratory Effort Blood Pressure Blood Pressure Mean Pulse Ox Oxygen Delivery Method Positive well nourished General Appearance ED: NAD; Negative for pallor HEENT Reports moist mucous membranes normocephalic and atraumatic Eyes PERRL and EOMs intact bilaterally Chest Wall inspection of chest normal Resp normal respiratory effort and clear to auscultation bilaterally Auscultation: Negative for rales, rhonchi or wheezes Cardio regular rate and regular rhythm Neuro oriented x3 and CN's II-XII intact bilaterally Sensorium / Orientation: awake Motor Exam: strength 5/5 throughout Psych mental status grossly normal Skin no rashes or lesions noted General Skin Exam: Negative for jaundice or pallor Heart Score History: Slightly/Non-Suspicious ECG: Normal Age: >45 - <65 years Risk Factors: >/= 3 Risk Factors or History of CAD Troponin: </= Normal Limit Score: 3 MDM MDM MDM Narrative Medical decision making narrative: Patient presenting with chest pain after taking Decadron. 443. She is more concerned because she recently had cardiac stents placed. Differential includes COVID-19, pneumonia, ACS, costochondritis, gastritis. CBC was obtained assess with blood cell count, hemoglobin, platelets. BMP to assess renal function electrolytes. Troponin and EKG were obtained to assess for ischemia dysrhythmia. KG sinus rhythm without evidence of ischemia on mitral rotation. Chest x-ray interpretation shows no acute process. CBC unremarkable. BMP shows a mildly elevated creatinine 1.31. High-sensitivity troponin 3 and delta troponin 4. Given negative workup I feel patient is stable for discharge home. I did recommend that she stop taking the Decadron as there is no current indication for this. She is likely the source of her pain. I recommended p lenty of fluids and rest. Return precautions were discussed. Impression: 1. COVID-19 2. Chest pain Lab Data Attestation: I reviewed the patient's lab results. Labs: Laboratory Results - last 24 hr 09/07/23 09/07/23 17:40 20:00 WBC 7.4 RBC 4.93 Hgb 13.9 Hct 43.0 MCV 87.2 MCH 28.2 MCHC 32.3 RDW Std Deviation 43.3 RDW Coeff of Kortney 13.7 Plt Count 230 MPV 10.4 Immature Gran % (Auto) 0.400 Neut % (Auto) 83.6 H Lymph % (Auto) 11.2 L [place] % (Auto) 3.4 Eos % (Auto) 1.1 Baso % (Auto) 0.3 Absolute Neuts (auto) 6.2 Absolute Lymphs (auto) 0.83 Nucleated RBC % 0 Sodium 134 L Potassium 4.0 Chloride 107 Carbon Dioxide 19.0 L Anion Gap 8 BUN 14 Creatinine 1.31 H Estim Creat Clear Calc 52.74 Est GFR (MDRD) Af Amer 56 L Est GFR (MDRD) Non-Af 47 L BUN/Creatinine Ratio 10.7 Glucose 125 H Calcium 8.9 Troponin I High Sens 3 4 Radiography Diagnostic Testing: Clinical Impression(s) from Imaging Studies Chest X-Ray 09/07/23 17:30 IMPRESSION: Normal x-ray examination of the chest. Electronically Signed: Fernando Dean MD at 18:19 EST , Discharge Plan Triage Chief Complaint: Chest Pain ED Provider: Ben Quiroz Dx/Rx/DC Orders Instructions: Coronavirus Disease 2019 (COVID-19): Caring for Yourself or Others, ED Chest Pain, Noncardiac Prescriptions: New benzonatate 100 mg capsule 100 mg PO TID PRN (Reason: cough) Qty: 20 0RF No Action vitamin B complex Capsule 1 cap PO DAILY magnesium oxide 500 mg capsule 500 mg PO DAILY fluoxetine 40 mg capsule 40 mg PO DAILY topiramate 100 mg tablet 100 mg PO DAILY Repatha SureClick 140 mg/mL pen injector 140 mg subcut QMONTH Qty: 2 1RF dexamethasone 6 mg tablet 6 mg PO DAILY Qty: 5 0RF folic acid 0.4 MG tablet 0.4 mg PO DAILY@0800 multivitamin with folic acid 1 TABLET tablet 1 tab PO DAILY calcium carbonate-vitamin D3 1 TAB tablet 1 tab PO DAILY@0800 montelukast 4 MG tablet,chewable 10 mg PO DAILY lorazepam 1 tablet 1 tab PO Q8H PRN (Reason: ANXIETY ) diclofenac epolamine 1.3 patch 1 patch TOPICAL DAILY PRN (Reason: PAIN ) albuterol sulfate 1 PUFF inhaler 1 - 2 puff INHALATION Q6H PRN (Reason: SHORTNES OF BREATH ) aspirin 81 mg tablet,delayed release (DR/EC) 81 mg PO BREAKFAST Qty: 90 3RF carvedilol 3.125 mg tablet 3.125 mg PO BID Qty: 180 3RF lisinopril 2.5 mg tablet 2.5 mg PO DAILY Qty: 90 3RF Brilinta 90 mg tablet 90 mg PO BID Qty: 180 3RF Primary Care Provider: Sujey Shaikh Referrals: Sujey Shaikh DO [Primary Care Provider] - Disposition Disposition: Home, Self Care Discharge Date/Time: 09/07/23 21:38
== END 2023-09-07 21:38 | disposition home or self-care (01) ==
PROVIDERS: Emergency Provider Student in an Organized Health Care Education/Training Program; PCP Family Medicine; Visit Provider Student in an Organized Health Care Education/Training Program
DX: R07.9 Chest pain, unspecified (principal); U07.1 COVID-19; I25.10 Atherosclerotic heart disease of native coronary artery without angina pectoris; E78.00 Pure hypercholesterolemia, unspecified; Z95.5 Presence of coronary angioplasty implant and graft; F41.9 Anxiety disorder, unspecified; Z90.710 Acquired absence of both cervix and uterus; Z90.49 Acquired absence of other specified parts of digestive tract
CPT/HCPCS: 71045; 80048; 84484; 85025; 93005; 96374; 99285; A4216; J2405

== ENCOUNTER → 2023-09-26 | Outpatient (CLI) | payer BC, SELFPAY ==
[2023-09-26 13:45] LABS: AST(SGOT) 15 U/L (15-37); Alanine Aminotransfer ALT/SGPT 23 U/L (13-56); Anion Gap 5 (5-15); BUN 13 mg/dL (7-18); BUN/Creat Ratio 12.4 RATIO (10-20); Calcium,Total 8.6 mg/dL (8.5-10.1); Chloride 113 mmol/L (98-107); Cholesterol 237 mg/dL (200); Creatinine, Serum 1.05 mg/dL (0.55-1.02); EST Glomerular Filtration Rate 60 mL/min (>60); Est Glom Filt Rate - Afr Amer 73 mL/min (>60); Glucose 91 mg/dL (74-106); High Density Lipoprotein 40 mg/dL; Potassium 4.1 mmol/L (3.5-5.1); Sodium Level 139 mmol/L (136-145); Thyroid Stim Hormone (TSH) 1.18 uIU/mL (0.358-3.74); Triglycerides 317 mg/dL; Very Low Density Lipoprotein 63 mg/dL (5-40)
== END | disposition home or self-care (01) ==
LOC: LAB 11:06
PROVIDERS: Internal Medicine Cardiovascular Disease; PCP Family Medicine; Visit Provider Internal Medicine Interventional Cardiology
DX: I25.10 Atherosclerotic heart disease of native coronary artery without angina pectoris (principal); I10 Essential (primary) hypertension; E78.5 Hyperlipidemia, unspecified
CPT/HCPCS: 80048; 80061; 84443; 84450; 84460

== ENCOUNTER → 2023-09-30 | Outpatient (CLI) | payer BC, SELFPAY ==
--- OUTSIDE RECORDS SUMMARY | 2023-09-30 11:53 | XMS RPT_ITS | CCD ---
Author Name Unknown Address [id number] [place] [address] Organization [facility] Care Team Providers Care Dentist/Owner Name Role Phone Vanesa Cardenas MD Unavailable [phone] JOEY NGUYEN Unavailable Unavailable JOEY NGUYEN Unavailable Unavailable Neto Rawls Attending Unavailab le PROVIDER, UNKNOWN Referring Unavailable Malys, Sujey Primary Care Unavailable Vanesa Cardenas MD Unavailable [phone] Malys DO, Sujey A Primary Care Provider MALYS, SUJEY A Primary Care Unavailable FARROW, LUTUL D Referring Unavailable MALYS, SUJEY A Primary Care Unavailable FARROW, LUTUL D Attending Unavailable MALYS, SUJEY A Primary Care Unavailable FARROW, LUTUL D Attending Unavailable FARROW, LUTUL D Attending Unavailable MALYS, SUJEY A Primary Care Unavailable MALYS, SUJEY A Primary Care Unavailable MALYS, SUJEY A Referring Unavailable MALYS, SUJEY A Primary Care Unavailable FARROW, LUTUL D Attending Unavailable DENIZ, VIMAL Attending Unavailable MALYS, SUJEY A Primary Care Unavailable MALYS, SUJEY A Primary Care Unavailable DENIZ, VIMAL Attending Unavailable MALYS, SUJEY A Primary Care Unavailable DENIZ, VIMAL Attending Unavailable FARROW, LUTUL D Attending Unavailable MALYS, SUJEY A Primary Care Unavailable MALYS, SUJEY A Primary Care Unavailable FARROW, LUTUL D Referring Unavailable CHARLOTTE NUÑEZ MD Attending Unavailable MALYS DO, DR SUJEY De Jesus Primary Care Unavailable Allergies Allergy Classification Reported Allergen(s) Allergy Type Date of Onset Reaction(s) Facility (5 sources) acetaminophen / dichloralphenazone / isometheptene drug allergy 012 elevated heart rate, elevated blood pressure, heart palpatations [facility] buPROPion drug allergy Pounding heart [facility] (5 sources) busPIRone drug allergy Racing heart [facility] (5 sources) ciprofloxacin drug allergy vomiting, hives [facility] (8 sources) nortriptyline; Translations: [NORTRIPTYLINE] drug allergy Other: See Comments [facility] (3 sources) ciprofloxacin; Translations: [CIPROFLOXACIN] Drug Allergy Vomiting [facility] Rep[facility] (3 sources) trospium; Translations: [TROSPIUM] Drug Allergy 014 Intolerance [facility] (3 sources) [id number] TAMINOPHN; Translations: [[id number] ETAMINOPHN] Propensity to adverse reactions to drug (disorder) Vomiting [facility] Repository Medications Completed/Discontinued Medications Medication Drug Class(es) Dates Sig (Normalized) Sig (Original) acetaminophen 325 mg / HYDROcodone bitartrate 5 mg oral tablet (16 sources) Opioid Agonist Start: 09-08-2021 HYDROcodone-acetam inophen (NORCO) 5-325 mg per tablet Problems Active Problems Problem Classification Problem Date Documented Date Episodic/Chronic Anxiety disorders (11 sources) Generalized anxiety disorder; Translations: [Anxiety disorder] Onset: 02-02-2015 02-09-2015 Chronic Asthma (1 source) Uncomplicated allergic asthma; Translations: [Unspecified asthma, uncomplicated] Onset: 08-28-2017 08-28-2017 Chronic Cardiac dysrhythmias (1 source) Palpitations; Translations: [Palpitations] 08-28-2017 Episodic Coagulation and hemorrhagic disorders (6 sources) Factor V deficiency; Translations: [Factor V Leiden mutation] Onset: 02-02-2015 02-09-2015 Chronic Disorders of lipid metabolism (1 source) Pure hypercholesterolemia; Translations: [Pure hypercholesterolemia, unspecified] Onset: 08-28-2017 08-28-2017 Chronic Esophageal disorders (2 sources) Gastroesophageal reflux disease; Translations: [Gastro-esophageal reflux disease without esophagitis] Onset: 10-22-2015 06-29-2009 Chronic Headache, including migraine (5 sources) Migraine; Translations: [Migraine, unspecified, not intractable, without status migrainosus] Onset: 02-02-2015 02-09-2015 Chronic Mood disorders (1 source) Depressive disorder; Translations: [Other specified depressive episodes] 06-29-2009 Chronic Osteoarthritis (1 source) Osteoarthritis of right knee joint; Translations: [Unilateral primary osteoarthritis, right knee] Onset: 10-22-2015 10-22-2015 Chronic Other diseases of bladder and urethra (1 source) Overactive bladder; Translations: [Overactive bladder] Onset: 09-01-2014 09-01-2014 Chronic Other endocrine disorders (5 sources) Polycystic ovaries; Translations: [Polycystic ovarian syndrome] Onset: 02-02-2015 02-09-2015 Chronic Other endocrine disorders (1 source) Polycystic ovary syndrome; Translations: [Polycystic ovarian syndrome] Onset: 10-22-2015 10-22-2015 Chronic Other nervous system disorders (5 sources) Carpal tunnel syndrome; Translations: [Carpal tunnel syndrome, right upper limb] 02-22-2012 Chronic Other non-traumatic joint disorders (2 sources) Pain in right knee; Translations: [Pain in right knee] Onset: 12-19-2018 Episodic Other nutritional; endocrine; and metabolic disorders (1 source) Obesity; Translations: [Obesity, unspecified] Onset: 04-17-2006 02-06-2007 Chronic Other upper respiratory disease (5 sources) Allergic rhinitis; Translations: [Allergic rhinitis, unspecified] Onset: 03-04-2015 03-16-2015 Chronic Spondylosis; intervertebral disc disorders; other back problems (15 sources) Lumbar spondylosis; Translations: [Inflammation of sacroiliac joint] Onset: 11-01-2011 11-01-2011 Chronic Unclassified (2 sources) Gynecologic examination ; Translations: [Encounter for gynecological examination (general) (routine) without abnormal findings] Onset: 05-04-2017 05-04-2017 Past or Other Problems Problem Classification Problem Date Documented Da te Episodic/Chronic Abdominal pain (7 sources) Left flank pain; Translations: [Left upper quadrant pain] Onset: 10-13-2015 10-13-2015 Episodic Acute bronchitis (5 sources) Acute bronchitis; Translations: [Acute bronchitis, unspecified] Onset: 09-21-2015 10-04-2015 Episodic Allergic reactions (5 sources) Urticaria; Translations: [Urticaria, unspecified] Onset: 07-07-2015 08-16-2015 Episodic Calculus of urinary tract (5 sources) Kidney stone; Translations: [Calculus of kidney] Onset: 10-13-2015 10-13-2015 Episodic Gastrointestinal hemorrhage (2 sources) Hemorrhage of anus and rectum; Translations: [Gastrointestinal hemorrhage] Onset: 08-10-2017 08-10-2017 Episodic Malaise and fatigue (5 sources) Fatigue; Translations: [Other fatigue] Onset: 02-02-2015 02-02-2015 Episodic Other connective tissue disease (5 sources) Iliotibial band friction syndrome; Translations: [Iliotibial band syndrome, right leg] Onset: 01-09-2012 01-09-2012 Episodic Other fractures (5 sources) Fracture of bone; Translations: [Other injury of unspecified body region] Onset: 05-04-2017 05-04-2017 Episodic Other non-traumatic joint disorders (1 source) Pain in left knee; Translations: [Left medial knee pain] Onset: 09-27-2021 Episodic Other upper respiratory infections (10 sources) Acute sinusitis; Translations: [Acute upper respiratory infection] Onset: 07-31-2015 Resolved: 08-03-2015 11-01-2015 Episodic Otitis media and related conditions (5 sources) Serous otitis media; Translations: [Other specified disorders of right middle ear and mastoid] Onset: 07-31-2015 Resolved: 08-03-2015 07-31-2015 Episodic Residual codes; unclassified (1 source) Pain, unspecified; Translations: [Pain] Onset: 09-10-2021 Episodic Urinary tract infections (5 sources) Urinary tract infectious disease; Translations: [Urinary tract infection, site not specified] Onset: 04-02-2015 04-19-2015 Episodic Results Test Name Value Interpretation Reference Range Facil ity Vital Signs Date Time Vital Sign Value Performing Clinician Graeme lopez 06-07-2017 11:52-0400 BMI (Body Mass Index) 48.34 kg/m2 Vanesa Cardenas MD [facility] 06-07-2017 11:52-0400 Body Temperature 98.6 [degF] Vanesa Cardenas MD [facility] 06-07-2017 11:52-0400 BP Diastolic 82 mm[Hg] Vanesa Cardenas MD [facility] 06-07-2017 11:52-0400 BP Systolic 123 mm[Hg] Vanesa Cardenas MD [facility] 06-07-2017 11:52-0400 Height 172.09 cm Vanesa Cardenas MD [facility] 06-07-2017 11:52-0400 Pulse (Heart Rate) 90 /min Vanesa Cardenas MD [facility] 06-07-2017 11:52-0400 Respiratory Rate 16 /min Vanesa Cardenas MD [facility] 06-07-2017 11:52-0400 Weight 143.16 kg Vanesa Cardenas MD [facility] 06-07-2017 11:52-0400 Weight 143.15 kg Vanesa Cardenas MD [facility] 05-04-2017 09:01-0400 BMI (Body Mass Index) 48.92 kg/m2 Vanesa Cardenas MD [facility] 05-04-2017 09:01-0400 Body Temperature 97.6 [degF] Vanesa Cardenas MD [facility] 05-04-2017 09:01-0400 Body Temperature 97.59 [degF] Vanesa Cardenas MD [facility] 05-04-2017 09:01-0400 BP Diastolic 80 mm[Hg] Vanesa Cardenas MD [facility] 05-04-2017 09:01-0400 BP Systolic 115 mm[Hg] Vanesa Cardenas MD [facility] 05-04-2017 09:01-0400 Height 170.18 cm Vanesa Cardenas MD [facility] 05-04-2017 09:01-0400 Pulse (Heart Rate) 79 /min Vanesa Cardenas MD [facility] 05-04-2017 09:01-0400 Respiratory Rate 16 /min Vanesa Cardenas MD [facility] 05-04-2017 09:01-0400 Weight 141.7 kg Vanesa Cardenas MD [facility] 01-18-2016 08:23-0400 BSA (Body Surface Area) 2.43 m2 Vanesa Cardenas MD [facility] Encounters Encounter Date Encounter Type Care Provider Facility Start: 09-18-2023 ambulatory CHARLOTTE NUÑEZ MD Fac ility:B Start: 06-25-2022 End: 06-25-2022 ambulatory SUJEY A NEEL Facility:[facility] Start: 06-25-2022 End: 06-25-2022 ambulatory Immunization [facility] Nurse Tung Work Phone: [facility] [place] Start: 11-19-2021 End: 11-19-2021 ambulatory SUJEY A MALYS Facility:[facility] Start: 11-12-2021 End: 11-12-2021 ambulatory SUJEY A MALYS Facility:[facility] Start: 11-05-2021 End: 11-05-2021 ambulatory VIMAL GUAMAN Facility:[facility] Start: 10-29-2021 End: 10-29-2021 ambulatory SUJEY A MALYS Facility:[facility] Start: 10-22-2021 End: 10-22-2021 ambulatory LUTUL D GEMAROW Facility:[facility] Start: 10-19-2021 End: 10-19-2021 ambulatory [facility]UL D [facility] Start: 09-27-2021 End: 09-27-2021 ambulatory SUJEY A MALYS [facility] Start: 09-10-2021 End: 09-10-2021 ambulatory SUJEY A MALYS [facility] Start: 08-13-2021 End: 08-13-2021 ambulatory SUJEY A MALYS [facility] Start: 12-19-[address] [facility] Start: 08-30-2017 End: 08-30-2017 Ambulatory [facility] Procedures Date Procedure Procedure Detail Performing Clinician Start: 06-25-2022 INFLUENZA VACCINE QUADRIVALENT 6 MO - 64 YRS IM Addis Barajas MD Work Phone: Start: 08-30-2017 Colonoscopy Immunization [place] Work Phone: Start: 06-07-2017 End: 06-07-2017 Urinalysis Vanesa Mixon Start: 06-07-2017 End: 06-07-2017 Urinalysis nonauto w/o scope Vanesa Cardenas MD Work Phone: Start: 05-04-2017 Gynecologic examination Annual gynecological examination Vanesa Cardenas MD Start: 10-14-2015 End: 10-15-2015 *CBC with Differential Sujey De Jesus Mikesumit DO Work Phone: Start: 10-14-2015 End: 10-15-2015 *CMP Complete Metabolic Panel Sujey Shaikh DO Work Phone: Start: 10-14-2015 End: 10-15-2015 Lactate Sujey De Jesus Mikesumit DO Work Phone: Start: 10-13-2015 End: 10-13-2015 Urinalysis Vanesa Mixon Start: 10-13-2015 End: 12-14-2015 Contrst x-ray, urinary tract Sujey De Jesus Mikesumit DO Work Phone: Start: 02-02-2015 End: 02-03-2015 Thyroid stimulating hormone (TSH) Sujey Shaikh, DO Work Phone: Start: 02-02-2015 End: 02-03-2015 Thyroxine (T4) free Sujey Neal Neel DO Work Phone: Start: 02-02-2015 End: 02-03-2015 Triiodothyronine (T3) Sujey Neal Neel, DO Work Phone: Start: 07-10-2013 Mammography Immunization [place] Work Phone: Plan of Treatment Date Care Activity Detail Author Start: 2023 FECAL OCCULT BLOOD FECAL OCCULT BLOOD [facility] Start: 08-30-2022 Colonoscopy COLONOSCOPY [facility] Start: 08-30-2022 COLORECTAL CANCER SCREENING COLORECTAL CANCER SCREENING [facility] Start: 11-16-2021 COVID-19 VACCINE (4 - Booster for Moderna series) COVID-19 VACCINE (4 - Booster for Moderna series) [facility] Start: 2018 Mammography MAMMOGRAM [facility] Start: 06-07-2017 End: 06-07-2017 Appointment Appointment [facility] Start: 06-07-2017 End: 06-07-2017 Urine culture, bacteria *CUUR - Culture, Urine ([place] Count) [facility] Start: 05-04-2017 End: 05-04-2017 Appointment Appointment [facility] Start: 05-04-2017 End: 05-04-2017 DEXA scan DEXA scan [facility] Start: 10-14-2015 End: 10-15-2015 *CBC with Differential *CBC with Differential [facility] Start: 10-14-2015 End: 10-15-2015 *CMP Complete Metabolic Panel *CMP Complete Metabolic Panel [facility] Start: 10-14-2015 End: 10-14-2015 Ct abd & pelvis w/o contrast CT Abdomen and pelvis; without contrast material [facility] Start: 10-14-2015 End: 10-15-2015 Lactate *LA Lactate (Lactic Acid) [facility] Start: 10-13-2015 End: 12-14-2015 Contrst x-ray, urinary tract X-Ray, KUB [facility] Start: 03-04-2015 End: 03-23-2015 ENT referral ENT referral [facility], [address] [place] [address], [id number] [facility] Start: 02-02-2015 End: 02-03-2015 Thyroid stimulating hormone (TSH) *TSH [facility] Start: 02-02-2015 End: 02-03-2015 Thyroxine (T4) free *T4 free [facility] Start: 02-02-2015 End: 02-03-2015 Triiodothyronine (T3) *T3-Total [facility] Start: 11-29-2012 Hepatitis B surface antibody level LDL CHOLESTEROL [facility] Start: 1997 Urine microalbumin profile DTAP,TDAP,TD (1 - Tdap) [facility] Start: 1996 ANNUAL PCP TEAM CHRONIC DISEASE VISIT ANNUAL PCP TEAM CHRONIC DISEASE VISIT [facility] Start: 1996 HEPATITIS C SCREENING HEPATITIS C SCREENING [facility] Start: 1996 HIV SCREENING HIV SCREENING [facility] Start: 1996 SPIROMETRY SPIROMETRY [facility] Start: 1988 3 comp foot exam completed DIABETIC FOOT EXAM [facility] Start: 1988 Hepatitis B screening URINE ALBUMIN:CREATININE RATIO [facility] Start: 1988 Hepatitis C antibody, confirmatory test DILATED RETINAL EXAM [facility] Start: 1984 PNEUMOCOCCAL (1 - PCV) PNEUMOCOCCAL (1 - PCV) [facility] Start: 1983 Hemoglobin A1c/Hemoglobin.total in Blood HBA1C [facility] Start: 1978 HEPATITIS B (1 of 3 - 3-dose series) HEPATITIS B (1 of 3 - 3-dose series) [facility] Immunizations Immunization Date Immunization Notes Care Provider Fa cility 06-25-2022 influenza, injectabl e, quadrivalent, contains preservative Immunization [place] Work Phone: [facility] 06-16-2017 influenza, injectabl e, quadrivalent, contains preservative Immunization [place] Work Phone: [facility] Work Phone: 07-08-2016 influenza, injectabl e, quadrivalent, contains preservative [facility] [place] Work Phone: [facility] Work Phone: 07-04-2015 influenza, injectabl e, quadrivalent, contains preservative Immunization [place] Work Phone: [facility] 07-10-2014 influenza, seasonal, injectable Immunization [place] Work Phone: [facility] Work Phone: 07-06-2013 influenza virus vaccine, unspecified formulation Immunization [place] Work Phone: [facility] Work Phone: 06-23-2012 influenza virus vaccine, unspecified formulation [facility] [place] Work Phone: [facility] 07-02-2011 influenza virus vaccine, unspecified formulation [facility] [place] Work Phone: [facility] Work Phone: 07-17-2010 influenza virus vaccine, unspecified formulation [facility] [place] Work Phone: [facility] 09-14-2009 novel [id number], all formulations Immunization [place] Work Phone: [facility] Work Phone: 06-27-2009 influenza virus vaccine, unspecified formulation Immunization [place] Work Phone: [facility] 08-06-2008 influenza virus vaccine, unspecified formulation [facility] [place] Work Phone: [facility] Work Phone: 08-11-2007 influenza virus vaccine, unspecified formulation [facility] [place] Work Phone: [facility] Work Phone: Payers Date Payer Category Payer Unknown 2005 Unknown [id number] 1978 Unknown [id number] 1978 Unknown [id number] Social History Date Type Detail Facility Tobacco smoking stat [facility] Never smoked tobacco [facility] Work Phone: Start: 06-21-2021 Alcohol intake Current drinke r of alcohol (finding) [facility] Start: 02-19-2013 History SDOH Alcohol Comment socially [facility] Start: 1980 Sex Assigned At Not on file [facility] Start: 06-15-2022 End: 06-25-2022 Exposure to SARS-CoV-2 (event) Not sure [facility] Work Phone: Clinical Notes 10-28-2015 to 11-19-2021 Note Date & Type Note Facility 11-19-2021 Note HNO ID: [id number] Author: Vimal Guaman PA-C Service: ? Author Type: Physician Neon Molder Type: Progress Notes Filed: 11/19/2021 1:40 PM Note Text: Interval History: Yves Kaur is here for euflexxa injection 12/02 . Chief complaint is left knee pain. Review of Systems: CV: No chest pain Pulm: No short of breath HEENT: No head ache General: no fevers, chills, nausea/vomiting, malaise Physical Examination: This is a well appearing, well nourished patient in no acute distress. Head is normocephalic and atraumatic. White sclera and pink conjunctiva. Mucous membranes are moist. Breathes easily and has normal chest wall excursion. Affect is normal. Effusion: None Large Joint Arthro/Inj: L knee joint Informed Consent Consent Obtained: Verbal [place] Protocol A moment to CARE was completed. SIGN IN Personnel directly involved with the procedure wore the appropriate PPE. Special Equipment: N/A Patient/Surrogate Stated/Verified: Patient name, Date of , Relevant allergies and Intended procedure TIME OUT Intended patient and procedure match the source document(s). Consent documented and matches the intended procedure. Relevant labs, photos, and/or imaging studies have been reviewed. Correct side/site marked and visible. Medications required for procedure verified. Fire risk assessed and interventions discussed. No implant(s) inserted. 11/19/2021 1:34 PM The procedure site was prepped in the usual sterile fashion. Site: L knee joint Medications: 20 mg sodium hyaluronate 10 mg/mL(mw 2.4 -3.6 million) Outcome: Tolerated well, no immediate complications Post-injection instructions were reviewed with the patient and the patient voiced understanding of these instructions. SIGN OUT No specimen collected. All instruments, equipment, possible retained foreign bodies accounted for. Post-procedure follow-up management communicated and Plan of Care Visit completed when applicable Impression: Yves Kaur is a 41 year old female with left knee primary osteoarthritis. Euflexxa injection /3 today. Plan: 1. Return as needed. Vimal Guaman PA-C [facility] 11-12-2021 Note HNO ID: [id number] Author: Vimal Guaman PA-C Service: ? Author Type: Physician Neon Molder Type: Progress Notes Filed: 11/12/2021 1:56 PM Note Text: Interval History: Yves Kaur is here for euflexxa injection /3 . Chief complaint is left knee pain . She had increased pain after her first injection. Painful to walk, even had to use crutches for a bit. This had not happened previously with past injections. No erythema or swelling noted Review of Systems: CV: No chest pain Pulm: No short of breath HEENT: No head ache General: no fevers, chills, nausea/vomiting, malaise Physical Examination: This is a well appearing, well nourished patient in no acute distress. Head is normocephalic and atraumatic. White sclera and pink conjunctiva. Mucous membranes are moist. Breathes easily and has normal chest wall excursion. Affect is normal. Effusion: None No erythema. Range of motion 0-110 Large Joint Arthro/Inj: L knee joint Informed Consent Consent Obtained: Verbal [place] Protocol A moment to CARE was completed. SIGN IN Personnel directly involved with the procedure wore the appropriate PPE. Special Equipment: N/A Patient/Surrogate Stated/Verified: Patient name, Date of , Relevant allergies and Intended procedure TIME OUT Intended patient and procedure match the source document(s). Consent documented and matches the intended procedure. Relevant labs, photos, and/or imaging studies have been reviewed. Correct side/site marked and visible. Medications required for procedure verified. Fire risk assessed and interventions discussed. No implant(s) inserted. 11/12/2021 1:56 PM The procedure site was prepped in the usual sterile fashion. Site: L knee joint Medications: 20 mg sodium hyaluronate 10 mg/mL(mw 2.4 -3.6 million) Outcome: Tolerated well, no immediate complications Post-injection instructions were reviewed with the patient and the patient voiced understanding of these instructions. SIGN OUT No specimen collected. All instruments, equipment, possible retained foreign bodies accounted for. Post-procedure follow-up management communicated and Plan of Care Visit completed when applicable Impression: Yves Kaur is a 41 year old female with left knee primary osteoarthritis. Euflexxa injection 2/3 today. Plan: 1. Return next week for injection 3/3. Vimal Guaman PA-C [facility] 11-05-2021 Note HNO ID: [id number] Author: Vimal Guaman PA-C Service: ? Author Type: Physician Neon Molder Type: Progress Notes Filed: 11/05/2021 1:27 PM Note Text: Interval History: Yves Kaur is here for euflexxa injection 3/3 for right knee and 1/3 for left knee . Chief complaint is bilateral knee pain . Review of Systems: CV: No chest pain Pulm: No short of breath HEENT: No head ache General: no fevers, chills, nausea/vomiting, malaise Physical Examination: This is a well appearing, well nourished patient in no acute distress. Head is normocephalic and atraumatic. White sclera and pink conjunctiva. Mucous membranes are moist. Breathes easily and has normal chest wall excursion. Affect is normal. Effusion: None Large Joint Arthro/Inj: bilateral knee joints Informed Consent Consent Obtained: Verbal [place] Protocol A moment to CARE was completed. SIGN IN Personnel directly involved with the procedure wore the appropriate PPE. Special Equipment: N/A Patient/Surrogate Stated/Verified: Patient name, Date of , Relevant allergies and Intended procedure TIME OUT Intended patient and procedure match the source document(s). Consent documented and matches the intended procedure. Relevant labs, photos, and/or imaging studies have been reviewed. Correct side/site marked and visible. Medications required for procedure verified. Fire risk assessed and interventions discussed. No implant(s) inserted. 11/05/2021 1:18 PM The procedure site was prepped in the usual sterile fashion. Site: bilateral knee joints Medications (Right): 20 mg sodium hyaluronate 10 mg/mL(mw 2.4 -3.6 million) Medications (Left): 20 mg sodium hyaluronate 10 mg/mL(mw 2.4 -3.6 million) Outcome: Tolerated well, no immediate complications Post-injection instructions were reviewed with the patient and the patient voiced understanding of these instructions. SIGN OUT No specimen collected. All instruments, equipment, possible retained foreign bodies accounted for. Post-procedure follow-up management communicated and Plan of Care Visit completed when applicable Impression: Yves Kaur is a 41 year old female with bilateral knee primary osteoarthritis. Euflexxa injection 3/3 in right knee and 1/3 in left knee today. Plan: 1. Return next week for injection 2/3 in left knee. Vimal Guaman PA-C [facility] 10-29-2021 Note HNO ID: [id number] Author: Trena Sena MD Service: ? Author Type: Physician Type: Progress Notes Filed: 10/29/2021 10:34 AM Note Text: Interval History: Yves Kaur is here for euflexxa injection 2/3 . Chief complaint is resolved bilateral knee pain . Review of Systems: CV: No chest pain Pulm: No short of breath HEENT: No head ache General: no fevers, chills, nausea/vomiting, malaise Physical Examination: This is a well appearing, well nourished patient in no acute distress. Head is normocephalic and atraumatic. White sclera and pink conjunctiva. Mucous membranes are moist. Breathes easily and has normal chest wall excursion. Affect is normal. Effusion: none Procedure note: After informed, verbal consent was obtained and a brief timeout was taken, the patient's right knee was injected with Euflexxa using aseptic technique. The patient tolerated this well and without complaints. Impression: Yves Kaur is a 41 year old female with right knee primary osteoarthritis. Euflexxa injection 2/3 today. Plan: 1. Return next week for injection 12/02. Trena Sena MD Large Joint Arthro/Inj: R knee joint Informed Consent Consent Obtained: Verbal [place] Protocol A moment to CARE was completed. SIGN IN Sign in communication not applicable due to emergent procedure. Personnel directly involved with the procedure wore the appropriate PPE. Special Equipment: N/A Patient/Surrogate Stated/Verified: Patient name, Date of , Relevant allergies and Intended procedure TIME OUT Intended patient and procedure match the source document(s). Consent documented and matches the intended procedure. Relevant labs, photos, and/or imaging studies have been reviewed. Correct side/site marked and visible. Medications required for procedure verified. No fire risk assessment and interventions applicable. No implant(s) inserted. 10/29/2021 10:33 AM The procedure site was prepped in the usual sterile fashion. Site: R knee joint Medications: 20 mg sodium hyaluronate 10 mg/mL(mw 2.4 -3.6 million) Outcome: Tolerated well, no immediate complications Post-injection instructions were reviewed with the patient and the patient voiced understanding of these instructions. SIGN OUT All specimen containers correctly labeled. All instruments, equipment, possible retained foreign bodies accounted for. Post-procedure follow-up management communicated and Plan of Care Visit completed when applicable [facility] 10-22-2021 Note HNO ID: [id number] Author: Trena Sena MD Service: ? Author Type: Physician Type: Progress Notes Filed: 10/22/2021 12:41 PM Note Text: Interval History: Yves Kaur returns today for evaluation of left knee. Chief complaint is left knee pain caused by a meniscus tear. The pain has been present for 1.5 months. She has tried muscle relaxers, and Flextor patches. She is unable to take NSAID due to stomach issues. Patient also has pain from osteoarthritis in right knee. Physical Examination: This is a well appearing, well nourishedl patient in no acute distress. Head is normocephalic and atraumatic. White sclera and pink conjunctiva. Mucous membranes are moist. Patient breathes easily and has normal chest wall excursion. Affect is normal. Review of Systems: CV: No chest pain Pulm: No short of breath HEENT: No head ache General: no fevers, chills, nausea/vomiting, malaise Imaging: none Procedure: After informed, verbal consent was obtained and a brief time out was taken, I injected the patient's left knee with 40mg of kenalog and 6 cc of lidocaine using aseptic technique. The patient tolerated the procedure well and without complaints. After informed, verbal consent was obtained and a brief timeout was taken, the patient's Right knee was injected with Euflexxa using aseptic technique. The patient tolerated this well and without complaints. Impression: Yves Kaur is a 41 year old female here with a diagnosis of Left knee pain caused by a torn medial meniscus and right knee pain from osteoarthritis . Plan: 1. Return to clinic: In 1 week for 2nd Euflexxa shot 2. Pharmacologic treatment: None 3. Physical therapy: No 4. Imaging: None By signing my name below, I, Jaja Ryan, attest that this documentation has been prepared under the direction and in the presence of Dr. Sena. Electronically signed, Jaja Davis, MSIII October 22, 2021 11:05 AM I agree with the Chief Complaint, ROS, and Past Histories independently gathered by the clinical family readiness support assistant and the remaining scribed note accurately describes my personal service to the patient. Trena Sena MD FAOA Orthopaedic Surgery and Sports Medicine [facility] Sports Medicine sculpture conservator [facility] stem cutter Clinical Operations Chemical Pathologist, Orthopaedic Sports Medicine Fellowship [facility] Orthopaedic and Rheumatologic [place] Large Joint Arthro/Inj: R knee joint Informed Consent Consent Obtained: Verbal [place] Protocol A moment to CARE was completed. SIGN IN Sign in communication not applicable due to emergent procedure. Personnel directly involved with the procedure wore the appropriate PPE. Special Equipment: N/A Patient/Surrogate Stated/Verified: Patient name, Date of , Relevant allergies and Intended procedure TIME OUT Intended patient and procedure match the source document(s). Consent documented and matches the intended procedure. Relevant labs, photos, and/or imaging studies have been reviewed. Correct side/site marked and visible. Medications required for procedure verified. No fire risk assessment and interventions applicable. No implant(s) inserted. 10/22/2021 12:40 PM The procedure site was prepped in the usual sterile fashion. Site: R knee joint Medications: 20 mg sodium hyaluronate 10 mg/mL(mw 2.4 -3.6 million) Outcome: Tolerated well, no immediate complications Post-injection instructions were reviewed with the patient and the patient voiced understanding of these instructions. SIGN OUT All specimen containers correctly labeled. All instruments, equipment, possible retained foreign bodies accounted for. Post-procedure follow-up management communicated and Plan of Care Visit completed when applicable Large Joint Arthro/Inj: L knee joint Informed Consent Consent Obtained: Verbal [place] Protocol A moment to CARE was completed. SIGN IN Sign in communication not applicable due to emergent procedure. Personnel directly involved with the procedure wore the appropriate PPE. Special Equipment: N/A Patient/Surrogate Stated/Verified: Patient name, Date of , Relevant allergies and Intended procedure TIME OUT Intended patient and procedure match the source document(s). Consent documented and matches the intended procedure. Relevant labs, photos, and/or imaging studies have been reviewed. Correct side/site marked and visible. Medications required for procedure verified. No fire risk assessment and interventions applicable. No implant(s) inserted. 10/22/2021 12:40 PM Site: L knee joint Medications: 40 mg triamcinolone acetonide 40 mg/mL Anesthetics: 6 mL lidocaine (PF) 10 mg/mL (1 %) SIGN OUT No specimen collected. All instruments, equipment, possible retained foreign bodies accounted for. Post-procedure follow-up management (more content not included)... [facility] 10-19-2021 Note HNO ID: [id number] Author: Trena Sena MD Service: ? Author Type: Physician Type: Progress Notes Filed: 10/19/2021 1:49 PM Note Text: virtual visit Magnetic Resonance Imaging from [facility] is personally reviewed by me and demonstrates significant osteoarthritis. medial meniscus tear. Physical examination: This is a well-appearing, well-nourished female in no acute distress. Her head is normocephalic and atraumatic. She is alert and oriented to person, place and time. She has white sclera, pink conjunctiva. Her mucous membranes are moist. She breathes easily and has normal chest wall excursion. She has a normal affect. Impression/Plan: 1. Recommended cortisone for the LEFT knee 2. Will start Euflexxa for the RIGHT knee. Trena Sena MD [facility] 09-27-2021 Note HNO ID: [id number] Author: RT Zay(R) Service: ? Author Type: Technologist Type: Progress Notes Filed: 09/27/2021 8:12 AM Note Text: Radiology Service Progress Note PATIENT NAME: Yves Kaur DATE OF SERVICE: September 27, 2021 TIME: 8:07 AM PATIENT IDENTITY VERIFICATION COMPLETED USING TWO (2) IDENTIFIERS: Name and Date of confirmed by patient verbally. FALL SCREENING: Has the patient had 2 falls in the last year or 1 fall with injury or currently using an Ambulatory Assistive Device (Walker, Cane, Wheelchair, Crutches, etc.)? No PATIENT GENDER DATA: Female. status: : No status: NO. PATIENT RELEVANT IMPLANT DATA REVIEWED: Yes RADIOLOGY DEPARTMENT: MR; Exam(s) Completed: Lower MSK: Knee, left PERIPHERAL IV DATA: Not applicable SIGNED BY: RT Zay(R) September 27, 2021 8:07 AM [facility] 09-10-2021 Note HNO ID: [id number] Author: Trena Sena MD Service: ? Author Type: Physician Type: Progress Notes Filed: 09/10/2021 10:24 AM Note Text: This is an established patient that is not new to my practice. Patient seen at the request of: Patient's infection preventionist History of present illness: Yves Kaur is a 41 year old female who comes in today with a chief complaint of severe left knee pain . The pain is located posterior/medial . This pain has been present for 1 week . This pain occurred with the following preceding injury: Pt reports acute onset of severe posterior/medial shooting pain which radiated down her left leg. She was seen in the ED for DVT which was negative. Subsequently folllowed up with podiatry who provided boot and recommended f/u here. . There is pain with squatting. There is pain at night. Patient has No swelling. There is not popping/clicking. There is not locking. There is not giving way. Prior treatment Meloxicam, crutches, activity modification . Patient presents to clinic today ambulating with assistance of crutches. She is also wearing a boot on her left foot which was provided by infection preventionist. 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 Patient's head is normocephalic and atraumatic. Patient has white sclera and pink conjunctiva. Mucous membranes are moist. Patient breathes easily and has normal chest wall excursion. Patient has a Normal. affect. Body habitus overweight . Focused exam of the knee: Non-weight bearing with assistance of crutches. Knee alignment: Normal . Flexion contracture: None. Range of motion is limited due to pain . There is pain with patellofemoral compression. There is pain along medial/lateral facets. No effusion. There is not quadriceps atrophy. There is not patellofemoral crepitance. There is medial joint line pain on palpation. There is lateral joint line pain on palpation. Ligamentous exam is not performed due to pain . Angeline's not performed due to pain . Patient experiencing pain out of proportion to physical exam. Contralateral knee exam: Examination of the contralateral knee reveals that there is normal stability, strength, range of motion and no pain on palpation. There is no significant effusion. Sensation grossly intact. Ipsilateral hip exam: There is good range of motion of the ipsilateral hip. No significant pain or restrictions with range of motion or log-rolling. Good strength. Normal stability. Negative straight leg raise. Imaging: Plain films from [facility] are personally reviewed by me and demonstrate mild osteoarthritis of the medial/patellofemoral compartments of the left knee. Procedure: None Impression: Yves Kaur is a 41 year old female with acute left knee pain . Plan: 1. Return to clinic to review results of MRI . 2. Physical therapy recommendation: Patient would be unable to adequately perform PT due to severe pain. Advised patient to continue non-weight bearing. 3. Pharmacologic treatment: Continue meloxicam as instructed 4. Imaging: MRI left knee to evaluate for medial meniscal root tear By signing my name below, I, Charlotte Lang, attest that this documentation has been prepared under the direction and in the presence of Dr. Sena. Electronically signed, Charlotte Lang OMS-III September 10, 2021 9:10 AM I agree with the Chief Complaint, ROS, and Past Histories independently gathered by the clinical family readiness support assistant and the remaining scribed note accurately describes my personal service to the patient. Trena Sena MD [facility] 09-10-2021 Note HNO ID: [id number] Author: RT Viviana(R) Service: ? Author Type: Technologist Type: Progress Notes Filed: 09/10/2021 8:17 AM Note Text: Radiology Service Progress Note PATIENT NAME: Yves Kaur DATE OF SERVICE: September 10, 2021 TIME: 8:16 AM PATIENT IDENTITY VERIFICATION COMPLETED USING TWO (2) IDENTIFIERS: Name and Date of confirmed by patient verbally. FALL SCREENING: Has the patient had 2 falls in the last year or 1 fall with injury or currently using an Ambulatory Assistive Device (Walker, Cane, Wheelchair, Crutches, etc.)? No PATIENT GENDER DATA: Female. status: : No status: NO. PATIENT RELEVANT IMPLANT DATA REVIEWED: Not Applicable RADIOLOGY DEPARTMENT: General X-ray: Exam(s) Completed: Lower Extremity X-Ray(s): Knee, AP / Lat / Tunne / Merchant Left and Wt. Bearing PERIPHERAL IV DATA: Not applicable SIGNED BY: RT Viviana(R) September 10, 2021 8:16 AM [facility] 08-13-2021 Note HNO ID: [id number] Author: Trena Sena MD Service: ? Author Type: Physician Type: Progress Notes Filed: 08/13/2021 10:39 AM Note Text: This is an established patient that is new to my practice. Patient seen at the request of [facility]. History of present illness: Yves Kaur is a 41 year old female who comes in today with a chief complaint of right knee pain. The pain is located diffusely. This pain has been present for many years. This pain occurred with the following preceding injury: None. There is pain with squatting. There is pain at night. Patient has there is pain going downstairs swelling. There is popping/clicking. There is not locking. There is giving way. Prior treatment: She has been treated for this extensively in the past. She has had Euflexxa in the right knee at least twice and has done well with that. She was recently switched over to cortisone and has only had about 2 weeks of relief with that. She comes in today for second opinion. 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 Patient's head is normocephalic and atraumatic. Patient has white sclera and pink conjunctiva. Mucous membranes are moist. Patient breathes easily and has normal chest wall excursion. Patient has a Normal. affect. Body habitus: Obese. Focused exam of the knee: Normal. gait. Knee alignment: Neutral. Flexion contracture: None. Range of motion is 0/0/1 130 degrees. There is pain with patellofemoral compression. There is not pain along facets. No effusion. There is not quadriceps atrophy. There is patellofemoral crepitance. There is not medial joint line pain on palpation. There is not lateral joint line pain on palpation. Ligamentous exam is negative . Angeline's negative . Contralateral knee exam: Examination of the contralateral knee reveals that there is normal stability, strength, range of motion and no pain on palpation. There is no significant effusion. Sensation grossly intact. Ipsilateral hip exam: There is good range of motion of the ipsilateral hip. No significant pain or restrictions with range of motion or log-rolling. Good strength. Normal stability. Negative straight leg raise. Imaging: Imaging reports are reviewed and demonstrate severe patellofemoral arthrosis Procedure: None Impression: Yves Kaur is a 41 year old female with right knee pain that has done extremely well with Euflexxa in the past. Plan: 1. Return to clinic once Euflexxa is approved. 2. Physical therapy recommendation: None 3. Pharmacologic treatment: Euflexxa approval for the right Shefalistephaniestefano Sena MD [facility] documented as of this encounter (statuses as of 06/25/2022) [facility] Summary Purpose Family History No Family History Records FoundNo Family History Records FoundNo Family History Records FoundNo Family History Records Found Advance Directives No Advanced Directives Records FoundNo Advanced Directives Records FoundNo Advanced Directives Records FoundNo Advanced Directives Records Found Additional Source Comments INFORMATION SOURCE (unrecogn ized section and content) DATE CREATED AUTHOR AUTHOR'S ORGANIZ ATION 12/21/2018 [facility] DATE CREATED AUTHOR AUTHOR'S ORGANIZ ATION 07/04/2022 [facility] DATE CREATED AUTHOR AUTHOR'S ORGANIZ ATION 09/19/2023 [facility] ([place]) Source Comments (unrecognize d section and content) In the event this informatio n is protected by the Federal Confidentiality of Alcohol and Drug Abuse Patient Records regulations: The Federal rules restrict any use of the information to criminally investigate or prosecute any alcohol or drug abuse patient.[facility] Care Teams (unrecognized sec tion and content) FOR RECORDS PERTAINING TO PATIENTS WHO ARE OR HAVE BEEN ENROLLED IN A CHEMICAL DEPENDENCY/SUBSTANCEABUSE PROGRAM, SOME INFORMATION MAY BE OMITTED. This clinical summary was aggregated from multiple sources. Caution should be exercised in using it in the provision of clinical care. This summary normalizes information from multiple sources, and as a consequence, information in this document may materially change the coding, format and clinical context of patient data. In addition, data may be omitted in some cases. CLINICAL DECISIONS SHOULD BE BASED ON THE PRIMARY CLINICAL RECORDS. [employer] [facility]. provides no warranty or guarantee of the accuracy or completeness of information in this document.
--- NOTE | 2023-09-30 12:00 | US_ITS ---
EXAM: US LEFT UPPER EXTREMITY NON-VASCULAR, COMPLETE CLINICAL INDICATION: LEFT ARM MASS, PAIN, SWELLING, NUMBNESS -- S/P INJURY TECHNIQUE: Real-time ultrasound scan of the left upper extremity with image documentation. COMPARISON: No relevant prior studies available. FINDINGS: SOFT TISSUES: Complex interstitial fluid noted within the subcutaneous tissues of the left arm over approximately 4 cm length suggestive of hematoma. No abnormal vascularity. No foreign body. US/Ext Non Vasc Limited/Soft Tiss IMPRESSION: Left arm collection suggestive of hematoma. Electronically Signed: Christopher Juares MD at 12:50 EST ,
== END | disposition home or self-care (01) ==
LOC: US 11:51
PROVIDERS: PCP Family Medicine; Referring Provider Surgery; Visit Provider Surgery
DX: R22.32 Localized swelling, mass and lump, left upper limb (principal); M79.622 Pain in left upper arm
CPT/HCPCS: 76882

== ENCOUNTER → 2024-03-12 | Outpatient (CLI) | payer BC, SELFPAY ==
[2024-03-12 12:14] LABS: Absolute Lymphocyte Count 1.89 X10^3/uL (0.83-4.51); Absolute Neutrophil Count 7.5 X10^3/uL (2.0-7.7); Basophil# 0.03 X10^3/uL; Basophil% 0.3 % (0-1); Eosinophil# 0.13 X10^3/uL; Eosinophils% 1.3 % (0-5); Hematocrit 43.2 % (37-47); Hemoglobin 13.9 g/dL (12.0-15.0); Lymphocyte # 1.89 X10^3/ul (0.83-4.51); Lymphocyte % 18.8 % (19-41); Mean Corp Hgb Conc 32.2 g/dL (32-36); Mean Corpuscular Hgb 28.1 pg (27.0-32.0); Mean Corpuscular Volume 87.4 fL (81-99); Mean Platelet Vol. 10.6 fl (6.2-12.0); Monocyte# 0.43 X10^3/uL; Monocyte% 4.3 % (0-10); NRBC Flagged by Analyzer 0.2 % (0-5); Neutrophil # 7.54 X10^3/uL (2.7-7.7); Neutrophil % 74.8 % (47-70); Platelet Count 320 K/mm3 (150-450); RBC Distribution Width CV 14.1 % (11.6-14.6); RBC Distribution Width SD 45.4 fl (35.1-43.9); Red Blood Count 4.94 M/mm3 (4.2-5.4); White Blood Count 10.1 K/mm3 (4.4-11.0)
[2024-03-12 12:52] LABS: ALB/GLOB Ratio 0.8 RATIO (0.9-2.4); AST(SGOT) 19 U/L (15-37); Alanine Aminotransfer ALT/SGPT 29 U/L (13-56); Albumin, Serum 3.6 g/dL (3.2-5.0); Alkaline Phosphatase 116 U/L (45-117); Anion Gap 7 (5-15); BUN 15 mg/dL (7-18); BUN/Creat Ratio 12.6 RATIO (10-20); Calcium,Total 9.6 mg/dL (8.5-10.1); Chloride 110 mmol/L (98-107); Creatinine, Serum 1.19 mg/dL (0.55-1.02); EST Glomerular Filtration Rate 52 mL/min (>60); Est Glom Filt Rate - Afr Amer 63 mL/min (>60); Globulin 4.4 g/dL (2.2-4.2); Glucose 104 mg/dL (74-106); Potassium 3.9 mmol/L (3.5-5.1); Sodium Level 136 mmol/L (136-145); Thyroid Stim Hormone (TSH) 1.78 uIU/mL (0.358-3.74)
== END | disposition home or self-care (01) ==
LOC: BFHLAB 09:03
PROVIDERS: PCP Family Medicine; Referring Provider Family Medicine; Visit Provider Family Medicine
DX: L29.9 Pruritus, unspecified (principal)
CPT/HCPCS: 36415; 80053; 84443; 85025

== ENCOUNTER 2024-03-22 10:00 | Outpatient (RCR) | payer BC, SELFPAY ==
--- NOTE | 2024-02-05 18:47 | HP.PTEVAL ---
Patient's Visit Information Visit Information Visit Information: YVES SKINNER is a 43 year old F referred to Physical Therapy by Dr. Susan Castro MD with a diagnosis of PELVIC ORGAN PROLAPSE. Date of Evaluation: 02/05/24 Physical Therapist: Amy Keyes PT, Cert MDT Visit Plan Frequency: 1x/Week Duration: 2-4 Months Plan: PF THERAPY FOR STRENGTHENING, LENGTHENING/RELAXATION AND ENDURANCE TRAINING. URINARY URGE AND FREQUENCY EDUCATION. HEALTHY BLADDER HABIT EDUCATION. TRAINING IN COORDINATION OF PELVIC FLOOR MUSCULATURE WITH HIP AND CORE (TRANSVERSE ABDOMINUS) MUSCULATURE. CORE STRENGTHENING. ROCKY LE ROM, STRETCHING AND STRENGTHENING. TRAINING IN ABDOMINAL CAVITY PRESSURE MGMT WITH ADL'S. 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 A LOT OF STEPS. SOME LIFTING, PUSHING AND PULLING. 2 CHILDREN AGES 18 AND 15 (C-SECTIONS). Disability: NO Present symptoms: URINARY LEAKAGE. INTERMITTENT FEELING OF BULGING IN VAGINAL AREA. Present since: A COUPLE MONTHS AGO Pain Scale: N/A Is it getting better, worse or staying the same: STAYING THE SAME Commenced as a result of: WEIGHT LOSS (ABOUT 30 LBS IN 6 MONTHS) Symptoms at onset: URINARY LEAKAGE Worse: COUGHING, LAUGHING, VIGOROUS WALKING, FULL BLADDER Better: DECREASING CAFFEINE, STOPPING FLUIDS AT 7PM. Disturbed sleep: GETTING UP 2 TIMES AT NIGHT TO URINATE Previous history/Previous treatment: PELVIC FLOOR PT IN [place] 2018 AND 2020 FOR STRESS UI. HEART ATTACK ABOUT 1 YEAR AGO - DOES THE EX'S THAT SHE CAN REMEMBER BUT DOES N'T REMEMBER ALL OF THE EX'S SO STATES SHE NEEDS A REFRESHER OF THE EX'S. BLADDER WAS SEWED TO UTERUS AFTER 2004 OF FIRST CHILD - REPEAT UTI'S X 1 YEAR. DID BETTER AFTER SECOND WHEN THAT WAS UNDONE. PAIN MGMT FOR BACK BACK PAIN - BULGING DISK L45. R SCIATICA. R HIP PAIN Treatment this episode: TREATED WITH ANTIBIOTIC FOR RECENT KIDNEY INFECTION - RESOLVED. Coughing/sneezing/straining: POSTIVE FOR UI Gait: NORMAL How long can you delay the need to urinate: 5 TO 10 MIN Prolapse (Falling out feeling): NOT DAILY BUT WHEN IT DOES OCCUR IT IS TOWARD THE END OF THE DAY WHEN ON FEET ALL DAY. 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 Bowel Incontinence: NO Accidents: NO Unexplained weight loss: NO Imaging: NO PMH/Recent major surgery: SEE [facility] EMR. HEART ATTACK MAY 2023 - TREATED WITH STENT AT [facility]. PAIN AND PRESSURE IN LOWER ABDOMINAL AND GENITAL AREA - CHRONIC. OTHER: WALKING ON [place] AT HOME AND WALKING DOG FOR EXERCISE. WALKING 3-5 MILES A COUPLE TIMES A WEEK. Objective Objective: Sitting/Standing Posture: ANTERIOR PELVIC TILT. NO RELEVANT LATERAL LUMBAR SHIFT. Other Observations: INDEP GAIT. INDEP SIT TO STAND WITHOUT UE ASSIST. Sensory deficit: ROCKY LE LIGHT TOUCH SENSATION GROSSLY INTACT AND SYMMETRICAL ROM deficit: ROCKY HIP FLEXOR, HS AND GASTROC-SOLEUS TIGHTNESS. ROCKY HIP IR/ER AND HIP ADDUCTOR TIGHTNESS. Motor deficit: ROCKY LE'S GROSSLY 5/5 WITH MMT'ING EXCEPT HIPS: R 4-/5, L 4/5. INTERNAL MANUAL VAGINAL TESTING REVEALS 3/5 PELVIC FLOOR STRENGTH AND X 4 SEC X 4 REPS. PATIENT C/O LOWER ABDOMINAL DISCOMFORT DURING AND AFTER TESTING. Reflexes: UNABLE TO ELICIT ROCKY LE DTR'S. Dural Signs: NEGATIVE ROCKY LE'S. Lumbar mvmt loss: flex - NIL ext - SUSANNE R SG - SUSANNE L SG - MOD Core strength: POOR Palpation: WITH INTERNAL MANUAL VAGINAL PALPATION PATIENT DOES NOT HAVE HIGH TONE PELVIC FLOOR BUT SHE DOES GET PAIN WITH PELVIC FLOOR STRENGTH TESTING. SHE ALSO DID NOT HAVE TENDERNESS WITH PALPATION OF THE PELVIC FLOOR MUSCULATURE. FUNCTIONAL SCREEN: Incontinence Impact Questionnaire Score: 9 Urogenital Distress Inventory Score: 11 Goals Goal 1:: DECREASE URINARY LEAKAGE EPISODES TO ONE OR LESS PER DAY Goal Time Frame: 8-12 Weeks Goal 2:: PATIENT WILL SUCCESSFULLY DELAY VOIDING LONG NEEDED WHEN URGENCY OCCURS TO SUCCESSFULLY MAKE IT TO THE BATHROOM. Goal Time Frame: 2-4 Weeks Goal 3:: PATIENT WILL DEMONSTRATE/COMMUNICATE 10 CONSISTENT AND CONSECUTIVE 10 SECOND PELVIC FLOOR MUSCLE CONTRACTIONS WITHOUT PAIN TO DEMONSTRATE IMPROVED PELVIC FLOOR ENDURANCE. Goal Time Frame: 8-12 Weeks Goal 4:: DEVELOP HEALTHY FLUID INTAKE HABITS WITH FLUID INTAKE OF ? BODY WEIGHT IN OUNCES PER DAY AND 2/3 BEING WATER. Goal Time Frame: 2-4 Weeks Goal 5:: NORMALIZE VOIDING FREQUENCEY TO EVERY 3-4 HOURS. Goal Time Frame: 6-8 Weeks Goal 6:: PATIENT WILL BE INDEP WITH A HEP/HOME INSTRUCTIONS FOR CONTINUED IMPROVEMENT ONCE FORMAL PHYSICAL THERAPY CONCLUDES. Goal Time Frame: 8-12 Weeks Rehabilitation Potential Physical Therapy Diagnosis: PELVIC FLOOR WEAKNESS AND TENDERNESS. CORE AND LE WEAKNESS AND STIFFNESS. SYMPTOMS OF PROLAPSE, MIXED URINARY INCONTINENCE AND INCREASED URINARY FREQUENCY. Rehabilitation Potential: Good Anticipated Interventions Patient/Client Instruction: Educate patient on: Condition, Plan of Care and Risk Factors For the Purpose of:: To improve self management Therapeutic Exercise to Include: Strength training, Endurance training, Flexibilty training, Neuromotor development and Relaxation training For the Purpose of:: To decrease pain, To improve muscle performance and motor function, To increase tolerance to activity/condition/position, To improve ability of physical actions for home/community/work/leisure and To increase flexibility/ROM Text: Thank you for the opportunity to evaluate your patient. For Medicare and Medicare HMO plans, please review the plan of care and approve it. It will need to be FAXED BACK to us at [phone] for Medicare purposes. For Medicare only, by signing this I certify the plan of care. Please let me know if there are questions or concerns regarding this plan of care. Physician Signature: Date:
--- NOTE | 2024-08-08 08:17 | HP.PT.NRP ---
Patient Information Patient Information: YVES SKINNER was seen in my office for initial evaluation on 02/05/24. The following Plan of Care was established for this patient: POC Established Initial Frequency: 1x/Week Initial Duration: 2-4 Months Anticipated Interventions Patient/Client Instruction: Educate patient on: Condition, Plan of Care and Risk Factors For the Purpose of:: To improve self management Therapeutic Exercise to Include: Strength training, Endurance training, Flexibilty training, Neuromotor development and Relaxation training For the Purpose of:: To decrease pain, To improve muscle performance and motor function, To increase tolerance to activity/condition/position, To improve ability of physical actions for home/community/work/leisure and To increase flexibility/ROM Last Seen Last Seen: This patient was last seen in our office 03/22/24. Pertinent comments regarding their Physical therapy will appear below: It has been my pleasure to see this patient for a total of 5 visits. This patient has not returned to Physical Therapy for more visits and is appropriate to return to MD for further follow-up as needed. At this point I will be discontinuing this patient from physical therapy. I would be happy to see this patient again in the future if found appropriate by the physician. Thank you! Amy Keyes, PT, Cert MDT
== END 2024-03-22 19:00 | disposition home or self-care (01) ==
LOC: PT 10:00
PROVIDERS: PCP Family Medicine; Referring Provider Urology; Visit Provider Urology
DX: R32 Unspecified urinary incontinence (principal); N81.9 Female genital prolapse, unspecified
CPT/HCPCS: 97162; 97530

== ENCOUNTER → 2024-05-27 | Outpatient (CLI) | payer BC, SELFPAY ==
--- NOTE | 2024-05-27 13:02 | BI_ITS ---
MAMMOGRAPHY - BILATERAL SCREENING REASON FOR EXAM: Female, 43 years old. Routine annual screening examination. PERTINENT HISTORY: Aunt with breast cancer. TECHNIQUE: Digital bilateral breast teresita (3D mammographic acquisition) in the CC and MLO projections. 2-D mediolateral oblique (MLO) and craniocaudad (CC) views of both breasts were obtained. CAD: Full Field Digital Mammography with Computer Added Detection was performed. COMPARISON: Comparison is made with prior study May 08, 2023 and December 29, 2021. FINDINGS: Breast Composition: There are scattered areas of fibroglandular density. There are no dominant masses or suspicious calcifications. Stable small benign-appearing bilateral axillary lymph nodes. No other significant abnormalities are identified. There has been no significant change since the prior study. BI/SCRN MAMM (CAD)W/TERESITA BILAT IMPRESSION: Stable bilateral screening mammogram. Yearly follow-up mammogram recommended. (A) ASSESSMENT CATEGORY: BIRADS Category 2: Benign. A letter regarding these results will be sent to the patient by the facility within 30 days. Approximately 10% of breast cancers are not detected by mammography. A normal mammogram should not delay biopsy of a clinically suspicious abnormality. [id number] Electronically Signed: Nile Cm MD at 14:01 EDT ,
== END | disposition home or self-care (01) ==
LOC: OPBI 13:01
PROVIDERS: PCP Family Medicine; Referring Provider Obstetrics & Gynecology; Visit Provider Obstetrics & Gynecology
DX: Z12.31 Encounter for screening mammogram for malignant neoplasm of breast (principal); Z80.3 Family history of malignant neoplasm of breast
CPT/HCPCS: 77063; 77067

== ENCOUNTER → 2024-07-03 | Outpatient (CLI) | payer BC, SELFPAY ==
[2024-07-03 12:14] LABS: Erythrocyte Sedimentation Rate 45 mm/hr (0-30)
[2024-07-03 12:18] LABS: Absolute Lymphocyte Count 2.25 X10^3/uL (0.83-4.51); Absolute Neutrophil Count 5.4 X10^3/uL (2.0-7.7); Basophil# 0.04 X10^3/uL; Basophil% 0.5 % (0-1); Eosinophil# 0.13 X10^3/uL; Eosinophils% 1.6 % (0-5); Hematocrit 40.1 % (37-47); Hemoglobin 12.8 g/dL (12.0-15.0); Lymphocyte # 2.25 X10^3/ul (0.83-4.51); Lymphocyte % 27.1 % (19-41); Mean Corp Hgb Conc 31.9 g/dL (32-36); Mean Corpuscular Hgb 28.1 pg (27.0-32.0); Mean Corpuscular Volume 87.9 fL (81-99); Mean Platelet Vol. 10.7 fl (6.2-12.0); Monocyte# 0.47 X10^3/uL; Monocyte% 5.7 % (0-10); NRBC Flagged by Analyzer 0 % (0-5); Neutrophil # 5.39 X10^3/uL (2.7-7.7); Neutrophil % 64.7 % (47-70); Platelet Count 278 K/mm3 (150-450); RBC Distribution Width CV 13.8 % (11.6-14.6); RBC Distribution Width SD 43.8 fl (35.1-43.9); Red Blood Count 4.56 M/mm3 (4.2-5.4); White Blood Count 8.3 K/mm3 (4.4-11.0)
[2024-07-03 12:26] LABS: ALB/GLOB Ratio 0.7 RATIO (0.9-2.4); AST(SGOT) 13 U/L (15-37); Alanine Aminotransfer ALT/SGPT 23 U/L (13-56); Alkaline Phosphatase 82 U/L (45-117); Anion Gap 6 (5-15); BUN 13 mg/dL (7-18); BUN/Creat Ratio 11.8 RATIO (10-20); Calcium,Total 9.5 mg/dL (8.5-10.1); Chloride 110 mmol/L (98-107); EST Glomerular Filtration Rate 57 mL/min (>60); Est Glom Filt Rate - Afr Amer 69 mL/min (>60); Free T3 2.1 pg/mL (2.18-3.98); Globulin 4.1 g/dL (2.2-4.2); Glucose 92 mg/dL (74-106); Potassium 3.9 mmol/L (3.5-5.1); Protein, Total 7.1 g/dL (6.4-8.2); Sodium Level 137 mmol/L (136-145); T4 Free Direct 1.15 ng/dL (0.76-1.46)
== END | disposition home or self-care (01) ==
LOC: BFHLAB 09:33
PROVIDERS: PCP Family Medicine; Referring Provider Family Medicine; Visit Provider Family Medicine
DX: E03.9 Hypothyroidism, unspecified (principal); R19.7 Diarrhea, unspecified
CPT/HCPCS: 80053; 84439; 84443; 84481; 85025; 85652; 86140

== ENCOUNTER → 2024-09-30 | Outpatient (CLI) | payer BC, SELFPAY ==
[2024-09-30 10:19] LABS: Absolute Lymphocyte Count 2.57 X10^3/uL (0.83-4.51); Absolute Neutrophil Count 7.5 X10^3/uL (2.0-7.7); Basophil# 0.03 X10^3/uL; Basophil% 0.3 % (0-1); Eosinophil# 0.09 X10^3/uL; Eosinophils% 0.8 % (0-5); Hemoglobin 13.7 g/dL (12.0-15.0); Lymphocyte # 2.57 X10^3/ul (0.83-4.51); Lymphocyte % 24.1 % (19-41); Mean Corp Hgb Conc 31.9 g/dL (32-36); Mean Corpuscular Hgb 27.2 pg (27.0-32.0); Mean Corpuscular Volume 85.3 fL (81-99); Mean Platelet Vol. 10.4 fl (6.2-12.0); Monocyte# 0.47 X10^3/uL; Monocyte% 4.4 % (0-10); NRBC Flagged by Analyzer 0 % (0-5); Neutrophil # 7.45 X10^3/uL (2.7-7.7); Neutrophil % 69.7 % (47-70); Platelet Count 286 K/mm3 (150-450); RBC Distribution Width CV 13.5 % (11.6-14.6); RBC Distribution Width SD 41.7 fl (35.1-43.9); Red Blood Count 5.04 M/mm3 (4.2-5.4); White Blood Count 10.7 K/mm3 (4.4-11.0)
[2024-09-30 10:25] LABS: ALB/GLOB Ratio 0.7 RATIO (0.9-2.4); AST(SGOT) 15 U/L (15-37); Alanine Aminotransfer ALT/SGPT 32 U/L (13-56); Albumin, Serum 3.2 g/dL (3.2-5.0); Alkaline Phosphatase 98 U/L (45-117); Anion Gap 8 (5-15); BUN 20 mg/dL (7-18); BUN/Creat Ratio 15.6 RATIO (10-20); Calcium,Total 9.2 mg/dL (8.5-10.1); Chloride 110 mmol/L (98-107); Cholesterol 158 mg/dL (200); Creatinine, Serum 1.28 mg/dL (0.55-1.02); EST Glomerular Filtration Rate 48 mL/min (>60); Est Glom Filt Rate - Afr Amer 58 mL/min (>60); Globulin 4.6 g/dL (2.2-4.2); Glucose 99 mg/dL (74-106); High Density Lipoprotein 53 mg/dL; Potassium 3.7 mmol/L (3.5-5.1); Protein, Total 7.8 g/dL (6.4-8.2); Sodium Level 138 mmol/L (136-145); Triglycerides 184 mg/dL; Very Low Density Lipoprotein 37 mg/dL (5-40)
[2024-09-30 12:39] LABS: Free T3 2.9 pg/mL (2.18-3.98); T4 Free Direct 1.22 ng/dL (0.76-1.46)
== END | disposition home or self-care (01) ==
PROVIDERS: PCP Family Medicine; Referring Provider Internal Medicine Cardiovascular Disease; Visit Provider Internal Medicine Cardiovascular Disease
DX: E78.5 Hyperlipidemia, unspecified (principal); E03.9 Hypothyroidism, unspecified; Z51.81 Encounter for therapeutic drug level monitoring
CPT/HCPCS: 36415; 80053; 80061; 84439; 84443; 84481; 85025

== ENCOUNTER 2024-10-28 17:41 | Observation (INO) | payer BC, SELFPAY ==
[2024-10-28] VITALS (8 sets, daily range): BP systolic 106–146; BP diastolic 63–97; PULSE 63–90; RESP 15–20; TEMP 36.1–36.5; O2SAT 97–99; BMI 44.7
--- NOTE | 2024-10-28 17:45 | EKG12_ITS ---
Test Reason : CP Blood Pressure : */* mmHG Vent. Rate : 85 BPM Atrial Rate : 85 BPM P-R Int : 152 ms QRS Dur : 74 ms QT Int : 352 ms P-R-T Axes : 46 -44 20 degrees QTcB Int : 418 ms Normal sinus rhythm Left axis deviation Low voltage QRS Abnormal ECG Confirmed by SADE BERKOWITZ, ASHLYN ([id number]), index editor KAMRYN DANG ([id number]) on 10/30/2024 6:27:02 AM Referred By: WINNIE Confirmed By: ASHLYN STUART MD
[2024-10-28 18:15] LABS: Absolute Lymphocyte Count 2.76 X10^3/uL (0.83-4.51); Absolute Neutrophil Count 6.9 X10^3/uL (2.0-7.7); Basophil# 0.04 X10^3/uL; Basophil% 0.4 % (0-1); Eosinophil# 0.11 X10^3/uL; Eosinophils% 1.1 % (0-5); Hematocrit 40.6 % (37-47); Hemoglobin 13.4 g/dL (12.0-15.0); Lymphocyte # 2.76 X10^3/ul (0.83-4.51); Lymphocyte % 26.4 % (19-41); Mean Corpuscular Hgb 28.3 pg (27.0-32.0); Mean Corpuscular Volume 85.7 fL (81-99); Monocyte# 0.58 X10^3/uL; Monocyte% 5.5 % (0-10); NRBC Flagged by Analyzer 0 % (0-5); Neutrophil # 6.94 X10^3/uL (2.7-7.7); Neutrophil % 66.2 % (47-70); Platelet Count 243 K/mm3 (150-450); RBC Distribution Width CV 13.8 % (11.6-14.6); RBC Distribution Width SD 42.7 fl (35.1-43.9); Red Blood Count 4.74 M/mm3 (4.2-5.4); White Blood Count 10.5 K/mm3 (4.4-11.0)
--- NOTE | 2024-10-28 18:34 | RAD_ITS ---
STUDY: X-RAY CHEST REASON FOR EXAM: Female, 44 years old. chest pain TECHNIQUE: AP portable COMPARISON: September 07, 2023 FINDINGS: The lungs are clear and expanded. There is no demonstrated pleural abnormality. Normal size heart. Normal mediastinum and jonas. Normal visualized pulmonary arteries. Normal visualized aortic arch and descending thoracic aorta. Normal visualized thoracic spine. Normal visualized ribs, clavicles, and shoulders. There is no demonstrated abnormality of the visualized soft tissue structures of the upper abdomen. RAD/Chest 1 View (Portable) IMPRESSION: Normal x-ray examination of the chest. Electronically Signed: Mason Farrell MD at 19:29 EST ,
[2024-10-28 18:35] LABS: Anion Gap 6 (5-15); BUN 17 mg/dL (7-18); Calcium,Total 9.2 mg/dL (8.5-10.1); Chloride 109 mmol/L (98-107); Creatinine, Serum 1.31 mg/dL (0.55-1.02); EST Glomerular Filtration Rate 46 mL/min (>60); Est Glom Filt Rate - Afr Amer 56 mL/min (>60); Estimated Creatinine Clearance 75.22 ml/min; Glucose 113 mg/dL (74-106); Sodium Level 137 mmol/L (136-145); Troponin-I HS (w/2H Reflex) < 3 pg/mL (3.0-54.0)
--- NOTE | 2024-10-28 18:45 | ED.VIS.CHEST ---
HPI History of Present Illness Chief Complaint: Chest Pain [facility] Medical History Acute bronchitis, unspecified Acute right otitis media Acute upper respiratory infection Anxiety Anxiety Atherosclerotic heart disease of [place] coronary artery without angina pectoris (05/29/23) Cellulitis of left forearm Class 3 obesity Contact with or suspected exposure to other viral communicable disease Coronary artery disease COVID-19 Depression Dyslipidemia Factor 5 Leiden mutation, heterozygous Factor 5 Leiden mutation, heterozygous GERD (gastroesophageal reflux disease) GERD (gastroesophageal reflux disease) History of PCOS Hx of migraines Hx of non-ST elevation myocardial infarction (NSTEMI) Hypercholesterolemia Migraines NSTEMI, initial episode of care Obesity PCOS (polycystic ovarian syndrome) Seasonal allergies Home Medications ?Medication ?Instructions ?Recorded ?Last Taken ?Type calcium 600 mg (as 1 tab PO DAILY@0800 SUPPLEMENT 03/11/14 03/12/14 20:00 History carbonate)-vitamin D3 20 mcg (800 1 TAB unit) tablet folic acid 400 mcg tablet 0.4 mg PO DAILY@0800 SUPPLEMENT 03/11/14 03/12/14 20:00 History 0.4 MG multivitamin with folic acid 400 1 tab PO DAILY SUPPLEMENT 03/11/14 03/12/14 20:00 History mcg tablet 1 TABLET lorazepam 1 mg tablet 1 tab PO Q8H PRN ANXIETY 04/12/18 Unknown History montelukast 4 mg chewable tablet 10 mg PO DAILY ASTHMA 04/12/18 Unknown History magnesium oxide 500 mg capsule 500 mg PO DAILY SUPPLEMENT 11/06/20 Unknown History vitamin B complex 1 cap PO DAILY SUPPLEMENT 11/06/20 Unknown History fluoxetine 40 mg capsule 40 mg PO DAILY FLUID 11/07/22 Unknown History topiramate 100 mg tablet 100 mg PO DAILY migraines 06/13/23 Unknown History semaglutide (weight loss) 0.5 0.5 mg subcut QWEEK 03/21/24 Unknown History mg/0.5 mL subcutaneous pen injector (Denisa) aspirin 81 mg tablet,delayed 81 mg PO BREAKFAST HEART HE[facility] 08/12/24 Unknown Rx release #90 tabs carvedilol 3.125 mg tablet 3.125 mg PO BID HEART #180 tabs 08/12/24 Unknown Rx evolocumab 140 mg/mL subcutaneous 140 mg subcut Q2W CHOLESTEROL #6 11/11/24 Unknown Rx pen injector (Repatha SureClick) mL Allergy/AdvReac Type Severity Reaction Status Date / Time [id number] Reductase Allergy Severe Other Verified 10/28/24 17:42 Inhibitor buspirone (From BuSpar) Allergy Chest Verified 10/28/24 17:42 tightness ciprofloxacin (From Cipro) Allergy Hives Verified 10/28/24 17:42 ciprofloxacin HCl (From Allergy Hives Verified 10/28/24 17:42 Cipro) dichloralphenazone (From Allergy Chest Verified 10/28/24 17:42 Midrin) tightness isometheptene mucate (From Allergy Chest Verified 10/28/24 17:42 Midrin) tightness meloxicam (From Mobic) Allergy Swelling Verified 10/28/24 17:42 nortriptyline (Nortriptyline) Allergy Chest Verified 10/28/24 17:42 tightness Family History Father Factor 5 Leiden mutation, heterozygous Brother Factor 5 Leiden mutation, heterozygous Daughter Factor 5 Leiden mutation, heterozygous Surgical History delivery delivered H/O lithotripsy H/O: hysterectomy History of carpal tunnel surgery History of cholecystectomy History of LAVH Hx of fasciotomy Stented coronary artery (05/29/23) Social History Smoking Status: Never smoker alcohol intake: current details: social substance use type: does not use caffeine: No what type of physical activity do you participate in: walking frequency: 1-2 times per week seatbelt use: always do you feel safe at home: Yes additional social history: [employer] 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 EXAM Physical Exam Const Vital Signs: 10/28/24 17:43 10/28/24 17:45 10/28/24 18:35 Temperature 97.0 F L Temperature Source Temporal Pulse Rate 90 Respiratory Rate 16 Respiratory Effort Normal Non-Labored Blood Pressure 146/97 H Blood Pressure Mean 113 Pulse Ox 98 Oxygen Delivery Method Room Air Room Air 10/28/24 18:46 10/28/24 19:31 10/28/24 20:00 Temperature Temperature Source Pulse Rate 78 70 70 Respiratory Rate 16 15 Respiratory Effort Blood Pressure 118/78 121/72 H 112/71 Blood Pressure Mean 91 84 Pulse Ox 97 97 Oxygen Delivery Method Room Air Room Air 10/28/24 21:00 10/28/24 21:58 10/28/24 22:00 Temperature 97.7 F L Temperature Source Pulse Rate 70 63 66 Respiratory Rate 20 H 20 H 18 Respiratory Effort Blood Pressure 122/78 H 106/64 117/93 H Blood Pressure Mean 92 78 101 Pulse Ox 97 97 98 Oxygen Delivery Method Room Air Room Air [facility] Narrative Medical decision making narrative: HISTORY OF PRESENT ILLNESS: 44-year-old female history of CAD status post stent, factor V Leiden, hyperlipidemia, obesity presents with chest pain that radiates to her right arm. She notes history of IN. She states she took 4 baby aspirin prior to arrival. Notes pain is pressure, squeezing. Similar to her prior heart attack. Is not exertional. No shortness of breath. Thinks could be anxiety. Denies bleeding diathesis. Denies vomiting or diarrhea. The patient denies recent surgery in the last 4 weeks or immobilization in the last 3 days, denies previous diagnosis of DVT or PE, hemoptysis, unilateral leg swelling or malignancy with treatment the last 6 months or palliative. No estrogen use noted. Patient denies sudden onset of pain, no tearing sensation, no migratory symptoms, no new numbness, weakness or loss of sensation. Patient denies family history or personal history of Connective tissue disorders (Marfan's Syndrome, Santosh Danlos etc). REVIEW OF SYSTEMS: Pertinent positives: Chest pain Pertinent negatives: Shortness of breath, bleeding diathesis PHYSICAL EXAM: Nursing triage notes reviewed, Vital signs reviewed Constitutional: please see [facility] HENT: MMM Eyes: Pupils equal round and reactive to light, Extraocular muscles intact Neck: No stridor, no JVD, full neck ROM Lungs: Clear to auscultation, No wheezing or rales. No increased work of breathing, no conversational dyspnea, no accessory muscle use, no nasal flaring. No respiratory distress noted Heart: Regular rate and rhythm, No murmurs, No rubs and No gallops, 2+ distal pulses (radial, femoral, posterior tibial) in all extremities Abdomen: Soft, there is no tenderness, rigidity, rebound or guarding, no obvious peritoneal signs, no palpable pulsatile abdominal masses, no auscultated abdominal bruit : No CVAT Extremities: No edema Neuro: No new focal neurological deficits, cranial nerves II through XII intact, 5/5 strength in all present extremities. Intact sensation to light touch in all present extremities, 2+ reflexes bilateral patella tendons. Skin: No rash or lesions noted MEDICAL DECISION MAKING: Chief Complaint: Chest pain External records reviewed: [Reviewed prior medications. Reviewed prior cardiovascular testing: Reviewed cardiac catheterization from November 2023 which showed 9 9% occlusion mid LAD, 6% proximal RCA, 50% proximal ramus, she received stent to the LAD. Prescribe Brilinta for 12 months and aspirin indefinitely Factors affecting care: as per HPI Social determinants of health: none History obtained from others: none Consults: Cardiology (Dr. Gracia), internal medicine open sees Dr. Chavarria) MDM Narrative: Patient was initially hemodynamically stable, afebrile and nontoxic-appearing. Exam without focal cardiopulmonary abnormalities I considered the following differential diagnosis: ACS, arrhythmia, anemia, electrolyte disturbance, Triage/protocol labs were obtained secondary to poor department of dynamics including high acuity and high volume. Triage labs obtained include BMP, CBC, troponin. EKG and chest x-ray were also obtained these were reviewed. ALL IMAGES (IF OBTAINED) HAVE BEEN PERSONALLY REVIEWED AND INTERPRETED BY MYSELF. EKG showed normal sinus rhythm, left axis deviation, normal intervals, QTc 14, no STEMI CBC without leukocytosis, severe anemia, no thrombocytopenia. BMP without evidence of significant electrolyte abnormalities, no anion gap, no acute kidney injury. Noted renal insufficiency that is similar to baseline High-sensitivity troponin is negative, no evidence of myocardial ischemia awaiting delta troponin.. Delta troponin also negative. After eval with the patient add on a D-dimer given her history of factor V Leiden to screen for signs of VTE D-dimer negative making VTE less likely I discussed case with cardiology on-call who agreed with admission given her symptoms are similar to prior issues where she is needed a stent. She is high risk. Despite negative troponins Dr. Gracia recommended admission for stress test. Recommended against nitro drip or heparin at this time. Discussed with hospitalist who agreed to meet the patient to PCU. The patient and/or family, caregivers express understanding. The patient and/or family, caregivers agrees with the plan. Shared decision making: I will have a discussion with the patient and or visitors regarding risk/benefits of further testing or admission. They will be made aware of of the risk/benefits inherent in this decision they will be given the opportunity to voice understanding. Total critical care time today provided was at least 0 minutes. This excludes separately billable procedures. Critical care time (if documented) is secondary to the patient having high probability of clinically significant/life threatening deterioration in the patient's condition which required my urgent intervention. Impression: 1. Chest pain 2. History of CAD Dispo: Admit This note was generated with [employer] dictation software. It may contain incorrect words, spelling, and punctuation that were not noted in review of the chart prior to signing. Lab Data Labs: Laboratory Results - last 24 hr 10/28/24 10/28/24 10/28/24 18:10 19:30 20:16 WBC 10.5 RBC 4.74 Hgb 13.4 Hct 40.6 MCV 85.7 MCH 28.3 MCHC 33.0 RDW Std Deviation 42.7 RDW Coeff of Kortney 13.8 Plt Count 243 MPV 10.0 Immature Gran % (Auto) 0.400 Neut % (Auto) 66.2 Lymph % (Auto) 26.4 Hopkins % (Auto) 5.5 Eos % (Auto) 1.1 Baso % (Auto) 0.4 Absolute Neuts (auto) 6.9 Absolute Lymphs (auto) 2.76 Nucleated RBC % 0 D-Dimer Quant (PE/DVT) 0.34 Sodium 137 Potassium 4.0 Chloride 109 H Carbon Dioxide 22.0 Anion Gap 6 BUN 17 Creatinine 1.31 H Estim Creat Clear Calc 75.22 Est GFR (MDRD) Af Amer 56 L Est GFR (MDRD) Non-Af 46 L BUN/Creatinine Ratio 13.0 Glucose 113 H Calcium 9.2 Troponin I High Sens < 3 L < 3 L Radiography Diagnostic Testing: Clinical Impression(s) from Imaging Studies Chest X-Ray 10/28/24 18:34 IMPRESSION: Normal x-ray examination of the chest. Electronically Signed: Mason Farrell MD at 19:29 EST , Discharge Plan Triage Chief Complaint: Chest Pain ED Provider: Pro,Rodo Dx/Rx/DC Orders Prescriptions: No Action vitamin B complex Capsule 1 cap PO DAILY magnesium oxide 500 mg capsule 500 mg PO DAILY fluoxetine 40 mg capsule 40 mg PO DAILY topiramate 100 mg tablet 100 mg PO DAILY Wegovy 0.5 mg/0.5 mL pen injector 0.5 mg subcut QWEEK Rx Instructions: administer weeks 5 through 8 of therapy folic acid 0.4 MG tablet 0.4 mg PO DAILY@0800 multivitamin with folic acid 1 TABLET tablet 1 tab PO DAILY calcium carbonate-vitamin D3 1 TAB tablet 1 tab PO DAILY@0800 montelukast 4 MG tablet,chewable 10 mg PO DAILY lorazepam 1 tablet 1 tab PO Q8H PRN (Reason: ANXIETY ) aspirin 81 mg tablet,delayed release (DR/EC) 81 mg PO BREAKFAST Qty: 90 0RF carvedilol 3.125 mg tablet 3.125 mg PO BID Qty: 180 0RF Repatha SureClick 140 mg/mL pen injector 140 mg subcut Q2W Qty: 6 3RF Primary Care Provider: Sujey Shaikh Referrals: Sujey Shaikh DO [Primary Care Provider] - Print Language: Ethiopian
[2024-10-28] MEDS: Nitroglycerin SL (ED/IMG/CATH) 0.4 MG TABLET SL (19:31)
[2024-10-28] MEDS: Ondansetron 4 MG/2 ML Vial IV (19:49)
[2024-10-28 19:58] LABS: D-Dimer Quantitative (DVT/PE) 0.34 FEU/ug/m (0.27-0.49)
[2024-10-28 20:12] LABS: Reflex Troponin-HS? (from REC) Y
[2024-10-28 20:39] LABS: Troponin-I HS < 3 pg/mL (3.0-54.0)
--- NOTE | 2024-10-28 22:34 | PCM.HP.STD ---
[facility] - General General Date of Admission: 10/28/24 Date of Service: 10/28/24 Chief Complaint: Chest Pain. HPI Narrative YVES SKINNER, is a 44 F with a past medical history of essential hypertension; on carvedilol, hyperlipidemia; with intolerance to statins on evolocumab, morbid obesity; with BMI of 44.7 this admission on semaglutide with recent intentional ~50 pound weight loss over the past few months, history of PCOS, CAD; s/p NSTEMI with LAD stent (2022) on BASA daily, history of being heterozygous for Ticrzf-C-Ucsiyi mutation, history of asthma; on montelukast, history of renal calculi; s/p lithotripsy, history of hysterectomy, history of cholecystectomy, history of bilateral plantar fasciotomy; with cyst removal, history of CTS; s/p release, remote history of , history of migraine headaches; well-controlled on topiramate and chronic magnesium supplementation, depression with anxiety; on fluoxetine and prn lorazepam q. 8-hours, history of COVID-19, history of acute bronchitis, history of cellulitis of the Left forearm, history of Right otitis media, history of GERD and history of seasonal allergies who presents to [facility] ER complaining of chest pain. Ms. Skinner reports her symptoms began a few hours prior to arrival with the abrupt-onset of chest pain that was initially substernal, pressure-like, squeezing, severe, ~10/10 and radiating into her Left arm with patient then taking 4 baby aspirin prior to arrival and SL NTG shortly after arrival with both seeming to help her symptoms. She states her chest pain was ominously similar to the angina that heralded her previous stent placement but she specifically denies worsening symptoms with exertion or radiation into her jaw like the first time. She does admit to increased anxiety but she denies associated fever, chills, nausea, vomiting, diarrhea, constipation, blood in stools, blood in urine, headache or focal neurologic deficits. In the ER she was noted to have two normal troponins of <3 pg/mL along with a normal range D-dimer of 0.34 present on admission and an unremarkable EKG showing normal sinus rhythm with Left axis deviation and normal intervals with no acute pathologic changes. She was then admitted to the PCU under observation status for ongoing care for stay that is expected to be less than 2 midnights. [facility] Medical History (Updated 10/28/24 @ 23:[address] Onofre Tello, DO) Depression COVID-19 Hx of non-ST elevation myocardial infarction (NSTEMI) Coronary artery disease Atherosclerotic heart disease of [place] coronary artery without angina pectoris (05/29/23) Dyslipidemia Obesity NSTEMI, initial episode of care Cellulitis of left forearm Acute bronchitis, unspecified Contact with or suspected exposure to other viral communicable disease Acute right otitis media Acute upper respiratory infection Class 3 obesity Seasonal allergies Anxiety GERD (gastroesophageal reflux disease) Hx of migraines History of PCOS Factor 5 Leiden mutation, heterozygous Hypercholesterolemia GERD (gastroesophageal reflux disease) Factor 5 Leiden mutation, heterozygous Anxiety PCOS (polycystic ovarian syndrome) Migraines Home Medications ?Medication ?Instructions ?Recorded ?Last Taken ?Type calcium 600 mg (as 1 tab PO DAILY@0800 SUPPLEMENT 03/11/14 10/29/24 History carbonate)-vitamin D3 20 mcg (800 unit) tablet folic acid 400 mcg tablet 0.4 mg PO DAILY@0800 SUPPLEMENT 03/11/14 10/29/24 History multivitamin with folic acid 400 1 tab PO DAILY SUPPLEMENT 03/11/14 10/29/24 History mcg tablet lorazepam 1 mg tablet 1 tab PO Q8H PRN ANXIETY 04/12/18 Unknown History montelukast 4 mg chewable tablet 10 mg PO QHS ASTHMA 04/12/18 Unknown History magnesium oxide 500 mg capsule 500 mg PO QHS SUPPLEMENT 11/06/20 Unknown History vitamin B complex 1 cap PO DAILY SUPPLEMENT 11/06/20 10/29/24 History fluoxetine 40 mg capsule 40 mg PO DAILY FLUID 11/07/22 10/29/24 History topiramate 100 mg tablet 100 mg PO QHS migraines 06/13/23 Unknown History semaglutide (weight loss) 0.5 0.5 mg subcut QWEEK 03/21/24 Unknown History mg/0.5 mL subcutaneous pen injector (Denisa) aspirin 81 mg tablet,delayed 81 mg PO BREAKFAST HEART HEALTH 08/12/24 10/29/24 Rx release #90 tabs carvedilol 3.125 mg tablet 3.125 mg PO BID HEART #180 tabs 08/12/24 10/29/24 Rx evolocumab 140 mg/mL subcutaneous 140 mg subcut Q2W CHOLESTEROL #6 08/12/24 Unknown Rx pen injector (Repatha SureClick) mL Allergy/AdvReac Type Severity Reaction Status Date / Time Linoqxi-YQU-MaN Reductase Allergy Severe Other Verified 10/28/24 17:42 Inhibitor buspirone (From BuSpar) Allergy Chest Verified 10/28/24 17:42 tightness ciprofloxacin (From Cipro) Allergy Hives Verified 10/28/24 17:42 ciprofloxacin HCl (From Allergy Hives Verified 10/28/24 17:42 Cipro) dichloralphenazone (From Allergy Chest Verified 10/28/24 17:42 Midrin) tightness isometheptene mucate (From Allergy Chest Verified 10/28/24 17:42 Midrin) tightness meloxicam (From Mobic) Allergy Swelling Verified 10/28/24 17:42 nortriptyline (Nortriptyline) Allergy Chest Verified 10/28/24 17:42 tightness Family History Father Factor 5 Leiden mutation, heterozygous Brother Factor 5 Leiden mutation, heterozygous Daughter Factor 5 Leiden mutation, heterozygous Surgical History Stented coronary artery (05/29/23) Hx of fasciotomy H/O: hysterectomy H/O lithotripsy History of carpal tunnel surgery History of cholecystectomy delivery delivered History of [facility] Social History Smoking Status: Never smoker alcohol intake: current details: social substance use type: does not use caffeine: No what type of physical activity do you participate in: walking frequency: 1-2 times per week seatbelt use: always do you feel safe at home: Yes additional social history: [employer] 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 Eyes: Patient denies changes in vision or discharge from eyes. ENT: Patient denies runny nose, sore throat or ear pain. Resp: Patient denies shortness of breath or cough. CV: Patient admits to chest pain that is pressure-like, squeezing and similar to her prior NV as per HPI. She denies palpitations or heart racing. GI: Patient denies abdominal pain, nausea, vomiting, diarrhea or constipation. : Patient denies dysuria, hematuria or urinary frequency. MSK: Patient denies arthralgias or myalgias. Skin: Patient denies rash, abscess, wounds or jaundice. Psych: Patient admits to recently elevated anxiety but she denies SI or HI. Neuro: Patient denies headache, paresthesias or focal neurologic deficits. Allergy: Patient denies lip swelling, tongue swelling or urticaria. Hematology: Patient denies easy bleeding or easy bruisability. Endocrinology: Patient denies polyuria, polydipsia or polyphagia. 14 point review systems otherwise negative except for positives noted above in HPI. Vital Signs Vital Signs Vital Signs: 10/28/24 17:43 10/28/24 17:45 10/28/24 18:35 Temperature 97.0 F L Temperature Source Temporal Pulse Rate 90 Respiratory Rate 16 Respiratory Effort Normal Non-Labored Blood Pressure 146/97 H Blood Pressure Mean 113 Pulse Ox 98 Oxygen Delivery Method Room Air Room Air 10/28/24 18:46 10/28/24 19:31 10/28/24 20:00 Temperature Temperature Source Pulse Rate 78 70 70 Respiratory Rate 16 15 Respiratory Effort Blood Pressure 118/78 121/72 H 112/71 Blood Pressure Mean 91 84 Pulse Ox 97 97 Oxygen Delivery Method Room Air Room Air 10/28/24 21:00 10/28/24 21:58 10/28/24 22:00 Temperature 97.7 F L Temperature Source Pulse Rate 70 63 66 Respiratory Rate 20 H 20 H 18 Respiratory Effort Blood Pressure 122/78 H 106/64 117/93 H Blood Pressure Mean 92 78 101 Pulse Ox 97 97 98 Oxygen Delivery Method Room Air Room Air Weight Weight: 285 lb 11.505 oz Body Mass Index (BMI) 44.7 Physical Exam Const alert, oriented x3 and no apparent distress Constitutional Narrative: Morbidly obese. General Appearance: cooperative HEENT normocephalic, head/scalp atraumatic, hearing grossly normal bilaterally and moist oral mucous membranes Eyes PERRL, EOMs intact bilaterally and conjunctivae normal Neck no lymphadenopathy and supple Resp normal respiratory effort, no retractions, no use of accessory muscles and clear to auscultation bilaterally Cardio regular rate and regular rhythm GI normal to inspection, nondistended, normoactive bowel sounds, soft to palpation, non-tender and non-distended GI Narrative: Morbidly obese. Extremity normal to inspection, full ROM and no clubbing, cyanosis or edema Skin Skin Narrative: Patient has no evidence of rash, abscess, wounds or jaundice. Neuro oriented x3, CN's II-XII intact bilaterally, moves all extremities and no focal motor deficits Sensorium / Orientation: awake, alert, oriented to person, oriented to place and oriented to time Speech: speech normal Psych Mood & Affect: anxious Results Medical Records Data Attestation: I reviewed the patient's medical records Lab / Micro Data Attestation: I reviewed the patient's lab results. 10/28/24 18:10 10/28/24 18:10 Labs: Laboratory Results - last 24 hr 10/28/24 18:10: WBC 10.5, RBC 4.74, Hgb 13.4, Hct 40.6, MCV 85.7, MCH 28.3, MCHC 33.0, RDW Std Deviation 42.7, RDW Coeff of Kortney 13.8, Plt Count 243, MPV 10.0, Immature Gran % (Auto) 0.400, Neut % (Auto) 66.2, Lymph % (Auto) 26.4, [place]per % (Auto) 5.5, Eos % (Auto) 1.1, Baso % (Auto) 0.4, Absolute Neuts (auto) 6.9, Absolute Lymphs (auto) 2.76, Nucleated RBC % 0, Sodium 137, Potassium 4.0, Chloride 109 H, Carbon Dioxide 22.0, Anion Gap 6, BUN 17, Creatinine 1.31 H, Estim Creat Clear Calc 75.22, Est GFR (MDRD) Af Amer 56 L, Est GFR (MDRD) Non-Af 46 L, BUN/Creatinine Ratio 13.0, Glucose 113 H, Calcium 9.2, Troponin I High Sens < 3 L 10/28/24 19:30: D-Dimer Quant (PE/DVT) 0.34 10/28/24 20:16: Troponin I High Sens < 3 L Imaging Radiology Impression Chest X-Ray 10/28/24 18:34 IMPRESSION: Normal x-ray examination of the chest. Electronically Signed: Mason Farrell MD at 19:29 EST , Assessment & Plan Assessment/Plan (1) Chest pain: QUALIFIERS: Chest pain type: unspecified Qualified Code(s): R07.9 - Chest pain, unspecified (2) Coronary artery disease: QUALIFIERS: Associated angina: with unspecified form of angina Coronary Disease-Associated Artery/Lesion type: [place] artery [place] vs. transplanted heart: [place] heart Qualified Code(s): I25.119 - Atherosclerotic heart disease of [place] coronary artery with unspecified angina pectoris (3) Stented coronary artery: (4) Factor 5 Leiden mutation, heterozygous: (5) Morbid obesity with BMI of 40.0-44.9, adult: (6) Anxiety: (7) Depression: QUALIFIERS: Depression Type: dysthymia Qualified Code(s): F34.1 - Dysthymic disorder PLAN: Plan 1. Chest Pain; in the setting of known previous CAD; s/p NSTEMI with LAD stent (2022) on BASA daily - Admit to PCU under observation status. Serialize troponin. Check echocardiogram to evaluate LVEF. Check Lexiscan NST in a.m. to evaluate for possible underlying ischemia as per salvage inspector wood parts's recommendations to ER physician. Give SL NTG as needed for angina. Give Tylenol as needed for [id number] (level 1-5/10) pain or fever. Give morphine IV as needed for severe (level 6-10/10) pain. 2. History of being heterozygous for Jyejmu-G-Cytybc mutation complicating #1 - Noted with normal D-dimer of 0.34 present on admission mitigating against underlying VTE. 3. Morbid Obesity; with BMI of 44.7 this admission on semaglutide compounding #1 & #2 - Continued weight loss will be recommended with patient having deliberately lost ~50 pounds over the past few months. Check TSH. This complicates her case and may hamper recovery. Resume semaglutide as outpatient. 4. Depression with anxiety; on fluoxetine and prn lorazepam with patient admitting to increased anxiety levels in spite of treatment adding to the medical complexity of #1 - #3 - Continue current regimen plus give additional prn q. 6-hour lorazepam for breakthrough symptoms. 5. Essential Hypertension; on carvedilol - Resume carvedilol as previous. 6. Hyperlipidemia; with intolerance to statins on evolocumab - Check Lipid Profile this admission in light of #1. 7. History of PCOS - Noted. 8. History of asthma; on montelukast - Stable with no evidence of acute flare at this time. Resume montelukast as before. 9. History of renal calculi; s/p lithotripsy - Noted. 10. History of hysterectomy - Noted. 11. History of cholecystectomy - Noted. 12. History of bilateral plantar fasciotomy; with cyst removal - Noted. 13. History of CTS; s/p release - Noted. 14. Remote history of - Noted for the sake of completeness. 15. History of migraine headaches; on topiramate - Maintain current regimen. 16. History of COVID-19 - Noted. 17. History of acute bronchitis - Noted with no signs of recurrence at this time. 18. History of cellulitis of the Left forearm - Noted. 19. History of Right otitis media - Noted. 20. History of GERD - Currently untreated. We will start PPI if symptoms develop and patient is amenable. 21. History of seasonal allergies - Continue montelukast plus give antihistamines prn for breakthrough symptoms. 22. DVT prophylaxis - Lovenox 40 mg sq BID. Total time: Approximately (but not less than) 70 minutes. Charges/Coding Visit Charges OBSV E&M: 99476 Observ/hosp same date L2
[2024-10-28 23:38] LABS: Hemoglobin A1c 5.2 % (3.8-5.6)
[2024-10-29] VITALS: BP 113/74; PULSE 63; RESP 18; O2SAT 97
--- NOTE | 2024-10-29 00:33 | EKG12_ITS ---
Test Reason : CP ADMIT Blood Pressure : */* mmHG Vent. Rate : 60 BPM Atrial Rate : 60 BPM P-R Int : 166 ms QRS Dur : 84 ms QT Int : 454 ms P-R-T Axes : 48 -21 5 degrees QTcB Int : 454 ms Normal sinus rhythm Normal ECG When compared with ECG of 28-Oct-2024 17:42, MANUAL COMPARISON REQUIRED DATA IS UNCONFIRMED Confirmed by SADE BERKOWITZ, ASHLYN ([id number]), fashion editor MARIJA LANGE ([id number]) on 10/30/2024 7:57:47 AM Referred By: Confirmed By: ASHLYN STUART MD
[2024-10-29 00:42] VITALS: BMI 43.9
[2024-10-29 00:43] VITALS: BMI 43.9
[2024-10-29 01:03] VITALS: BP 111/58; PULSE 65; RESP 18; TEMP 36.6; O2SAT 95
[2024-10-29] MEDS: 0.9% Normal Saline (1000mL) 1,000 ML 50 ML IV (01:08)
[2024-10-29] MEDS: 0.9% Saline Lock 10 ML Syringe IV (01:12)
[2024-10-29 01:13] VITALS: O2SAT 97
[2024-10-29] MEDS: Magnesium Chloride 64 MG Delay Rel.Tablet 128 MG PO (01:38)
[2024-10-29] MEDS: Topiramate 100 MG Tablet PO (01:38)
[2024-10-29] MEDS: Acetaminophen 325 MG Tablet 650 MG PO (01:41)
[2024-10-29 02:08] LABS: Troponin-I HS < 3 pg/mL (3.0-54.0)
[2024-10-29 05:13] VITALS: BMI 43.9
[2024-10-29 06:24] LABS: Absolute Lymphocyte Count 2.75 X10^3/uL (0.83-4.51); Absolute Neutrophil Count 5.7 X10^3/uL (2.0-7.7); Basophil# 0.03 X10^3/uL; Basophil% 0.3 % (0-1); Eosinophil# 0.12 X10^3/uL; Eosinophils% 1.3 % (0-5); Hematocrit 39.5 % (37-47); Hemoglobin 12.6 g/dL (12.0-15.0); Lymphocyte # 2.75 X10^3/ul (0.83-4.51); Mean Corp Hgb Conc 31.9 g/dL (32-36); Mean Corpuscular Volume 87.8 fL (81-99); Mean Platelet Vol. 10.2 fl (6.2-12.0); Monocyte# 0.55 X10^3/uL; NRBC Flagged by Analyzer 0 % (0-5); Neutrophil # 5.69 X10^3/uL (2.7-7.7); Platelet Count 218 K/mm3 (150-450); RBC Distribution Width SD 44.1 fl (35.1-43.9); White Blood Count 9.2 K/mm3 (4.4-11.0)
[2024-10-29 06:32] VITALS: BP 106/71; PULSE 62; RESP 18; TEMP 36.2; O2SAT 96
[2024-10-29] MEDS: Aspirin E.C. 81 MG Tablet PO (06:33)
[2024-10-29 06:52] LABS: ALB/GLOB Ratio 0.8 RATIO (0.9-2.4); AST(SGOT) 11 U/L (15-37); Alanine Aminotransfer ALT/SGPT 26 U/L (13-56); Alkaline Phosphatase 97 U/L (45-117); Anion Gap 8 (5-15); BUN 14 mg/dL (7-18); BUN/Creat Ratio 12.6 RATIO (10-20); Calcium,Total 8.7 mg/dL (8.5-10.1); Chloride 110 mmol/L (98-107); Cholesterol 130 mg/dL (200); Creatinine, Serum 1.11 mg/dL (0.55-1.02); EST Glomerular Filtration Rate 56 mL/min (>60); Est Glom Filt Rate - Afr Amer 68 mL/min (>60); Estimated Creatinine Clearance 87.82 ml/min; Globulin 3.7 g/dL (2.2-4.2); Glucose 85 mg/dL (74-106); High Density Lipoprotein 47 mg/dL; Magnesium 2.1 mg/dL (1.6-2.6); Phosphorus 3.3 mg/dL (2.5-4.9); Potassium 3.9 mmol/L (3.5-5.1); Protein, Total 6.7 g/dL (6.4-8.2); Sodium Level 137 mmol/L (136-145); Triglycerides 142 mg/dL; Very Low Density Lipoprotein 28 mg/dL (5-40)
[2024-10-29 08:00] VITALS: PULSE 58
[2024-10-29 10:20] VITALS: BP 114/63; PULSE 78; RESP 16; TEMP 36.6; O2SAT 98
[2024-10-29] MEDS: Folic Acid 1 MG Tablet 0.5 MG PO (10:23)
[2024-10-29] MEDS: Fluoxetine HCl 40 MG CAPSULE PO (10:24)
[2024-10-29] MEDS: Calcium Carb/Vitamin D 1 TABLET Tablet PO (10:24)
[2024-10-29] MEDS: Multivitamins,Therapeutic Tablet 1 TABLET PO (10:25)
[2024-10-29] MEDS: Vitamin B Comp W-C Capsule 1 CAP PO (10:25)
[2024-10-29] MEDS: Carvedilol 3.125 MG TABLET PO (10:26)
--- NOTE | 2024-10-29 11:42 | STRESSREP ---
Stress Test Report Date: 10/29/2024 Procedure: Exercise tolerance test/imaging study Indications: Chest pain Consent: Per the patient Procedure: The patient exercised on a Leo protocol for 7 minutes and 54 seconds achieving a peak heart rate of 181 bpm (104% predicted maximal heart rate) with a peak blood pressure 146/70 mmHg and a peak MET capacity of 102/64 METs. The baseline ECG demonstrated normal sinus rhythm. The peak exercise ECG demonstrated sinus tachycardia with no significant ischemic changes. EKG during recovery revealed no significant ischemic changes [There were no cardiac dysrhythmias pretest, during exercise, or recovery]. The functional capacity was considered normal for age. Patient had 1/10 chest pressure at rest that did not change significantly with exertion. The examination was discontinued secondary to dyspnea. Impression: 1. Technically adequate (percent predicted maximal heart rate greater than 85%) exercise tolerance test 2. Stress test is negative for exercise-induced EKG changes of ischemia 3. Patient had 1/10 chest pressure at rest that did not change significantly. 4. Functional capacity is normal for age 5. Nuclear images pending Myocardial perfusion imaging study: Technique: The patient was injected with 15 mCi of technetium 99m Cardiolite and subsequently rest SPECT Cardiolite nuclear imaging was obtained in the horizontal long, vertical long, and short axis views. The patient exercised on a Leo protocol. Please see above for details. The patient was injected with 44 mCi of technetium 99m Cardiolite and subsequently stress SPECT Cardiolite nuclear imaging was obtained in the horizontal long, vertical long, and short axis views. A gated Cardiolite study at peak stress was obtained. Interpretation: Rest and stress SPECT Cardiolite nuclear imaging status post realignment, normalization, and attenuation correction, demonstrates no evidence of significant ischemia or infarction. The gated Cardiolite study demonstrates no significant regional wall motion abnormalities. The reported LVEF is 70%. Impression: 1. There is no evidence of significant ischemia or infarction. 2. The gated Cardiolite study reports an LVEF of 70%. This note was generated with [employer] software. It may contain incorrect words, spelling, and punctuation that were not noted in checking the note before signing.
--- NOTE | 2024-10-29 12:35 | DCINST_ITS ---
Discharge Instructions Diet Discharge Diet: No restrictions DC O2, CPAP, BIPAP needs Home O2 Discharge instructions: No Dressing / Incision Discharge Activity: Return to Normal Activity Weight Bearing Status: Full weight bearing Follow Up Care Test Results: Test results from this visit will be discussed in further detail at your follow- up appointment, if applicable. Discharge Plan Admission Admit Date/Time: 10/28/24 23:05 Primary Reason for Your Visit: chest pain Attending Provider: Edgard Liz Primary Care Provider: Sujey Shaikh Consulting Providers: Onofre Tello Discharge Orders/Prescriptions Prescriptions: Continued vitamin B complex Capsule 1 cap PO DAILY magnesium oxide 500 mg capsule 500 mg PO QHS fluoxetine 40 mg capsule 40 mg PO DAILY topiramate 100 mg tablet 100 mg PO QHS Wegovy 0.5 mg/0.5 mL pen injector 0.5 mg subcut QWEEK Rx Instructions: administer weeks 5 through 8 of therapy folic acid 0.4 MG tablet 0.4 mg PO DAILY@0800 multivitamin with folic acid 1 TABLET tablet 1 tab PO DAILY calcium carbonate-vitamin D3 1 TAB tablet 1 tab PO DAILY@0800 montelukast 4 MG tablet,chewable 10 mg PO QHS lorazepam 1 tablet 1 tab PO Q8H PRN (Reason: ANXIETY ) aspirin 81 mg tablet,delayed release (DR/EC) 81 mg PO BREAKFAST Qty: 90 0RF carvedilol 3.125 mg tablet 3.125 mg PO BID Qty: 180 0RF Repatha SureClick 140 mg/mL pen injector 140 mg subcut Q2W Qty: 6 3RF Referrals / Follow Up: Sujey Shaikh DO [Primary Care Provider] - Disposition Disposition (needs filled in before D/C Order can be placed): Home, Self Care
--- NOTE | 2024-10-29 12:58 | CASEMGMT ---
Patient has order for discharge. RN CM in to discuss needs at dsicharge, at bedside. Patient denies needs or help at discharge. Patient had no further questions or concerns.
--- NOTE | 2024-10-29 13:11 | PHA.DC.MR.R ---
Pharmacy MA Med Reconciliation Pharmacy Service has performed discharge medication reconciliation for this patient. The patient's discharge medication list was reviewed for discrepancies and discrepancies were resolved. Medications at Discharge Home Medications calcium 600 mg (as carbonate)-vitamin D3 20 mcg (800 unit) tablet 1 tab PO DAILY@0800 SUPPLEMENT 03/11/14 folic acid 400 mcg tablet 0.4 mg PO DAILY@0800 SUPPLEMENT 03/11/14 multivitamin with folic acid 400 mcg tablet 1 tab PO DAILY SUPPLEMENT 03/11/14 lorazepam 1 mg tablet 1 tab PO Q8H PRN ANXIETY 04/12/18 montelukast 4 mg chewable tablet 10 mg PO QHS ASTHMA 04/12/18 magnesium oxide 500 mg capsule 500 mg PO QHS SUPPLEMENT 11/06/20 vitamin B complex 1 cap PO DAILY SUPPLEMENT 11/06/20 fluoxetine 40 mg capsule 40 mg PO DAILY FLUID 11/07/22 topiramate 100 mg tablet 100 mg PO QHS migraines 06/13/23 semaglutide (weight loss) 0.5 mg/0.5 mL subcutaneous pen injector (Denisa) 0.5 mg subcut QWEEK 03/21/24 aspirin 81 mg tablet,delayed release 81 mg PO BREAKFAST HEART HEALTH #90 tabs 08/12/24 carvedilol 3.125 mg tablet 3.125 mg PO BID HEART #180 tabs 08/12/24 evolocumab 140 mg/mL subcutaneous pen injector (Gardenia Dubon) 140 mg subcut Q2W CHOLESTEROL #6 mL 08/12/24
--- NOTE | 2024-11-25 10:42 | PCM.DC.SUM ---
Providers Date of Admission: 10/28/24 Date of Discharge: 11/29/24 Primary Care Physician: Dr. Sujey Shaikh DO Reason For Visit: chest pain Diagnosis Discharge Diagnosis (1) Chest pain: Status: Inactive Code(s): R07.9 - Chest pain, unspecified Qualifiers: Chest pain type: unspecified Qualified Code(s): R07.9 - Chest pain, unspecified (2) Coronary artery disease: Status: Inactive Code(s): I25.10 - Atherosclerotic heart disease of [place] coronary artery without angina pectoris Qualifiers: Associated angina: with unspecified form of angina Coronary Disease-Associated Artery/Lesion type: [place] artery [place] vs. transplanted heart: [place] heart Qualified Code(s): I25.119 - Atherosclerotic heart disease of [place] coronary artery with unspecified angina pectoris (3) Stented coronary artery: Status: Inactive Code(s): Z95.5 - Presence of coronary angioplasty implant and graft (4) Factor 5 Leiden mutation, heterozygous: Status: Inactive Code(s): D68.51 - Activated protein C resistance (5) Morbid obesity with BMI of 40.0-44.9, adult: Status: Inactive Code(s): E66.01 - Morbid (severe) obesity due to excess calories; Z68.41 - Body mass index [BMI] 40.0-44.9, adult (6) Anxiety: Status: Inactive Code(s): F41.9 - Anxiety disorder, unspecified (7) Depression: Status: Inactive Code(s): F32.9 - Major depressive disorder, single episode, unspecified Qualifiers: Depression Type: dysthymia Qualified Code(s): F34.1 - Dysthymic disorder Plan 1. Musculoskeletal chest pain #2 coronary artery disease #3 essential hypertension #4 class III obesity Medications at Discharge Home Medications calcium 600 mg (as carbonate)-vitamin D3 20 mcg (800 unit) tablet 1 tab PO DAILY@0800 SUPPLEMENT 03/11/14 folic acid 400 mcg tablet 0.4 mg PO DAILY@0800 SUPPLEMENT 03/11/14 multivitamin with folic acid 400 mcg tablet 1 tab PO DAILY SUPPLEMENT 03/11/14 lorazepam 1 mg tablet 1 tab PO Q8H PRN ANXIETY 04/12/18 montelukast 4 mg chewable tablet 10 mg PO QHS ASTHMA 04/12/18 magnesium oxide 500 mg capsule 500 mg PO QHS SUPPLEMENT 11/06/20 vitamin B complex 1 cap PO DAILY SUPPLEMENT 11/06/20 fluoxetine 40 mg capsule 40 mg PO DAILY FLUID 11/07/22 topiramate 100 mg tablet 100 mg PO QHS migraines 06/13/23 semaglutide (weight loss) 0.5 mg/0.5 mL subcutaneous pen injector (Wegovy) 0.5 mg subcut QWEEK 03/21/24 aspirin 81 mg tablet,delayed release 81 mg PO BREAKFAST HEART HEALTH #90 tabs 08/12/24 carvedilol 3.125 mg tablet 3.125 mg PO BID HEART #180 tabs 08/12/24 evolocumab 140 mg/mL subcutaneous pen injector (Repatha SureClick) 140 mg subcut Q2W CHOLESTEROL #6 mL 08/12/24 azithromycin 250 mg tablet See Rx Instructions PO .COMPLEX #6 tabs 11/14/24 benzonatate 100 mg capsule 200 mg (2 x 100 mg) PO TID PRN cough #30 caps 11/14/24 Hospital Course Operations None Procedures Nuclear stress test Summary of Care Provided Minutes Spent on Discharge: 30 Hospital Course: This 44-year-old white female was seen in the emergency room at [facility] with complaints of substernal chest discomfort that she described as pressure-like in nature. Patient has a past history of coronary artery disease with stent placement. Workup in the emergency room included 2 separate troponins which were both unremarkable, EKG showed a normal sinus rhythm with no acute ischemic changes. Chest x-ray was unremarkable. Cardiology was contacted and recommended admission to the hospital for further workup. Patient was placed in observation status on PCU and monitored on telemetry, patient underwent a nuclear stress test the next day which was negative for reversible ischemia. On 10/29/2024, patient was seen and examined: On examination she appeared in good health and spirits, patient had class III obesity, she does not appear to be in any distress. Vital signs as documented. Skin warm and dry and without overt rashes. Neck without JVD, thyroid appears normal, trachea is midline, neck is supple. Lungs clear, normal air movement was noted. Heart exam notable for regular rhythm, normal sounds and absence of murmurs, rubs or gallops. Abdomen unremarkable and without evidence of organomegaly, masses, or abdominal aortic enlargement, bowel sounds are present in all 4 quadrants, no abdominal tenderness was noted. Extremities nonedematous, no cyanosis was noted, no clubbing was noted. Neuro: Cranial nerves II through XII are grossly intact, no focal motor deficits were noted, sensation to light touch and pinprick is intact, motor exam 5/5 throughout. Psych: Patient is alert and oriented x3, she does not appear anxious or depressed, she does not appear agitated. Patient was discharged home in stable condition on 10/29/2024. Weight / BMI Weight Weight: 127.2 kg Body Mass Index (BMI) 43.9 ABG / Lab / Microbiology Data 10/29/24 06:00 10/29/24 06:00 D/C Instructions Discharge Diet: No restrictions Weight Bearing Status: Full weight bearing DC O2, CPAP, BIPAP Needs Home O2 Discharge instructions: No Meaningful Use Info Meaningful Use Meaningful Use Diagnoses (Choose all that apply): None applicable Ischemic Stroke Statin Dosing Therapy Reference: STATIN DOSE THERAPY REFERENCE: * Patients > 75 years receive moderate or high dose statin therapy. * Patients 75 years or YOUNGER should receive HIGH intensity statin dose unless contraindicated. You will be required to document reason for non-treatment if statin daily dose does not meet guidelines. HIGH DOSE STATIN THERAPY DAILY Atorvastatin > than or = to 40 mg Rosuvastatin > than or = to 20 mg Amlodipine + Atorvastatin > than or = to 2.5/40 mg Ezetimibe + Simvastatin 10/80 mg Simvastatin 80mg Discharge Plan Admission Admit Date/Time: 10/28/24 23:05 Primary Reason for Your Visit: chest pain Attending Provider: Edgard Liz Primary Care Provider: Sujey Shaikh Consulting Providers: Onofre Tello Discharge Orders/Prescriptions Prescriptions: Continued vitamin B complex Capsule 1 cap PO DAILY magnesium oxide 500 mg capsule 500 mg PO QHS fluoxetine 40 mg capsule 40 mg PO DAILY topiramate 100 mg tablet 100 mg PO QHS Wegovy 0.5 mg/0.5 mL pen injector 0.5 mg subcut QWEEK Rx Instructions: administer weeks 5 through 8 of therapy folic acid 0.4 MG tablet 0.4 mg PO DAILY@0800 multivitamin with folic acid 1 TABLET tablet 1 tab PO DAILY calcium carbonate-vitamin D3 1 TAB tablet 1 tab PO DAILY@0800 montelukast 4 MG tablet,chewable 10 mg PO QHS lorazepam 1 tablet 1 tab PO Q8H PRN (Reason: ANXIETY ) aspirin 81 mg tablet,delayed release (DR/EC) 81 mg PO BREAKFAST Qty: 90 0RF carvedilol 3.125 mg tablet 3.125 mg PO BID Qty: 180 0RF Repatha SureClick 140 mg/mL pen injector 140 mg subcut Q2W Qty: 6 3RF No Action azithromycin 250 mg tablet See Rx Instructions PO .COMPLEX Qty: 6 0RF Rx Instructions: take 500 mg today (day 1), then 250 mg for 4 days (days 2-5) PO benzonatate 100 mg capsule 200 mg PO TID PRN (Reason: cough) Qty: 30 0RF Referrals / Follow Up: Sujey Shaikh DO [Primary Care Provider] - Disposition Disposition (needs filled in before D/C Order can be placed): Home, Self Care Charges/Coding Visit Charges Inpatient E&M: 20906 Disch Hosp
== END 2024-10-29 12:39 | disposition home or self-care (01) ==
LOC: ED 18:52 → PCU 10-29 00:46
PROVIDERS: Admitting Provider Internal Medicine; Emergency Provider Emergency Medicine; PCP Family Medicine; Visit Provider Internal Medicine
DX: I25.119 Atherosclerotic heart disease of native coronary artery with unspecified angina pectoris (principal); E66.813 Obesity, class 3; Z68.41 Body mass index [BMI] 40.0-44.9, adult; K21.9 Gastro-esophageal reflux disease without esophagitis; F34.1 Dysthymic disorder; E78.00 Pure hypercholesterolemia, unspecified; Z79.82 Long term (current) use of aspirin; I10 Essential (primary) hypertension; D68.51 Activated protein C resistance; Z95.5 Presence of coronary angioplasty implant and graft; N28.9 Disorder of kidney and ureter, unspecified; Z79.899 Other long term (current) drug therapy; F41.8 Other specified anxiety disorders
CPT/HCPCS: 36415; 71045; 78452; 80048; 80053; 80061; 83036; 83735; 84100; 84443; 84484; 85025; 85379; 93005; 93017; 96374; 99221; 99285; A9500; A4216; G0378; J2405

== ENCOUNTER → 2025-03-03 | Outpatient (CLI) | payer BC, SELFPAY ==
--- NOTE | 2025-03-03 15:38 | RAD_ITS ---
PROCEDURE: HIP, UNI W/ PELVIS 2-3 VIEWS 03/03/2025 REASON FOR EXAM: PAIN IN LEFT HIP TECHNIQUE: An AP view of the pelvis was performed as well as two views of the left hip. COMPARISON: None FINDINGS: AP view of the pelvis was obtained as well as two views of the left hip and demonstrate normal mineralization of the osseous structures. There are no osteoblastic or osteoclastic lesions identified. There are no fractures or dislocations. SI joints, pubic symphysis, lower lumbar spine, and both hip joints are unremarkable. No abnormal soft tissue finding is seen. RAD/HIP, UNI W/ Pelvis 2-3 Views IMPRESSION: Unremarkable AP pelvis and left hip study. Reading Location: [id number]
[2025-03-03 18:05] LABS: Absolute Lymphocyte Count 2.44 X10^3/uL (0.83-4.51); Absolute Neutrophil Count 7.5 X10^3/uL (2.0-7.7); Basophil# 0.03 X10^3/uL; Basophil% 0.3 % (0-1); Eosinophil# 0.13 X10^3/uL; Eosinophils% 1.2 % (0-5); Hematocrit 40.8 % (37-47); Hemoglobin 13.3 g/dL (12.0-15.0); Lymphocyte # 2.44 X10^3/ul (0.83-4.51); Lymphocyte % 22.8 % (19-41); Mean Corp Hgb Conc 32.6 g/dL (32-36); Mean Corpuscular Hgb 28.7 pg (27.0-32.0); Mean Corpuscular Volume 87.9 fL (81-99); Mean Platelet Vol. 11.1 fl (6.2-12.0); Monocyte# 0.57 X10^3/uL; Monocyte% 5.3 % (0-10); NRBC Flagged by Analyzer 0 % (0-5); Neutrophil # 7.48 X10^3/uL (2.7-7.7); Neutrophil % 69.9 % (47-70); Platelet Count 283 K/mm3 (150-450); RBC Distribution Width CV 13.4 % (11.6-14.6); RBC Distribution Width SD 42.8 fl (35.1-43.9); Red Blood Count 4.64 M/mm3 (4.2-5.4); White Blood Count 10.7 K/mm3 (4.4-11.0)
[2025-03-03 18:43] LABS: ALB/GLOB Ratio 1.1 RATIO (0.9-2.4); AST(SGOT) 21 U/L (<=31); Alanine Aminotransfer ALT/SGPT 18 U/L (<=34); Albumin, Serum 3.8 g/dL (3.5-5.0); Alkaline Phosphatase 99 U/L (35-104); Anion Gap 13 (5-15); BUN 13 mg/dL (4-19); BUN/Creat Ratio 10.4 RATIO (10-20); Calcium,Total 8.9 mg/dL (7.6-11.0); Carbon Dioxide 17.4 mmol/L (21.0-32.0); Chloride 105 mmol/L (98-108); Creatinine, Serum 1.21 mg/dL (0.70-1.20); EST Glomerular Filtration Rate 56 (>60); Ferritin 117 ng/mL (22-378); Globulin 3.3 g/dL (2.2-4.2); Glucose 97 mg/dL (70-99); Protein, Total 7.1 g/dL (5.9-8.4); Sodium Level 135 mmol/L (133-145); Total Bilirubin 0.27 mg/dL (0.00-1.30); Vitamin D,25 Hydroxy 28.4 ng/mL (30-100)
[2025-03-03 18:51] LABS: Erythrocyte Sedimentation Rate 39 mm/hr (0-30)
[2025-03-03 18:57] LABS: Iron 43 ug/dL (50-170)
== END | disposition home or self-care (01) ==
LOC: MTLAB 15:34
PROVIDERS: PCP Family Medicine; Referring Provider Family Medicine; Visit Provider Family Medicine
DX: M25.552 Pain in left hip (principal); E55.9 Vitamin D deficiency, unspecified; R53.83 Other fatigue; D64.9 Anemia, unspecified; Z51.81 Encounter for therapeutic drug level monitoring
CPT/HCPCS: 36415; 73502; 80053; 82306; 82728; 83540; 85025; 85652; 86140

== ENCOUNTER → 2025-05-28 | Outpatient (CLI) | payer BC, SELFPAY ==
--- NOTE | 2025-05-28 07:41 | BI_ITS ---
EXAM: SCRN MAMM (CAD)W/TERESITA BILAT DATE: 05/28/2025 CLINICAL HISTORY: F, Age 44 y/o , SCREENING MAMMOGRAM FOR BREAST CANCER History of aunt with breast cancer. TECHNIQUE: SCRN MAMM (CAD)W/TERESITA BILAT COMPARISON: Prior exam(s) dated May 27, 2024.. FINDINGS: TISSUE DENSITY: There are scattered areas of fibroglandular density. Bilateral Breast Mammographic Findings: No significant masses, calcifications or other abnormalities are identified. Stable small benign-appearing bilateral axillary lymph nodes. No suspicious masses, areas of developing architectural distortion, or suspicious calcifications. There has been no significant interval change. BI/SCRN MAMM (CAD)W/TERESITA BILAT IMPRESSION: Stable examination. OVERALL FINAL ASSESSMENT BI-RADS 2: BENIGN RECOMMENDATION: Routine annual follow-up in 1 Year A letter with findings and recommendations will be mailed to the patient. Reading Location: [facility]
== END | disposition home or self-care (01) ==
LOC: OPBI 07:34
PROVIDERS: PCP Family Medicine; Referring Provider Obstetrics & Gynecology; Visit Provider Obstetrics & Gynecology
DX: Z12.31 Encounter for screening mammogram for malignant neoplasm of breast (principal); Z80.3 Family history of malignant neoplasm of breast
CPT/HCPCS: 77063; 77067

== ENCOUNTER → 2025-09-05 | Outpatient (CLI) | payer BC, SELFPAY ==
[2025-09-05 09:56] LABS: Hematocrit 39.6 % (37-47); Hemoglobin 13.2 g/dL (12.0-15.0); Immature Granulocytes Count 0.030 X10^3/uL (0.0-0.0); Mean Corp Hgb Conc 33.3 g/dL (32-36); Mean Corpuscular Volume 86.8 fL (81-99); Mean Platelet Vol. 10.2 fl (6.2-12.0); NRBC Flagged by Analyzer 0 % (0-5); Platelet Count 282 K/mm3 (150-450); RBC Distribution Width CV 13.6 % (11.6-14.6); RBC Distribution Width SD 43.1 fl (35.1-43.9); Red Blood Count 4.56 M/mm3 (4.2-5.4); White Blood Count 7.7 K/mm3 (4.4-11.0)
[2025-09-05 10:25] LABS: AST(SGOT) 17 U/L (<=31); Alanine Aminotransfer ALT/SGPT 22 U/L (<=34); Albumin, Serum 3.9 g/dL (3.5-5.0); Alkaline Phosphatase 96 U/L (35-104); Anion Gap 12 (5-15); BUN 12 mg/dL (4-19); BUN/Creat Ratio 10.4 RATIO (10-20); Bilirubin, Direct 0.18 mg/dL (0.00-0.30); Calcium,Total 9.6 mg/dL (7.6-11.0); Carbon Dioxide 19.6 mmol/L (21.0-32.0); Chloride 106 mmol/L (98-108); Cholesterol 146 mg/dL (<=200); Globulin 3.4 g/dL (2.2-4.2); Glucose 97 mg/dL (70-99); Low Density Lipoprotein Calc. 73 mg/dL; Potassium 4.1 mmol/L (3.3-5.1); Triglycerides 188 mg/dL; Very Low Density Lipoprotein 38 mg/dL (5-40); cholesterol:hdl ratio screen 3.57
== END | disposition home or self-care (01) ==
LOC: LAB 08:55
PROVIDERS: PCP Family Medicine; Referring Provider Nurse Practitioner Gerontology; Visit Provider Nurse Practitioner Gerontology
DX: I25.10 Atherosclerotic heart disease of native coronary artery without angina pectoris (principal); E78.5 Hyperlipidemia, unspecified
CPT/HCPCS: 36415; 80048; 80061; 80076; 85025

== ENCOUNTER 2025-09-30 08:00 | Day surgery (SDC) | payer BC, SELFPAY ==
--- NOTE | 2025-09-23 17:25 | PAT.ANESEVAL ---
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 When Was Last Pacemaker Check QUESTION #4 FULL TEXT: You/Your Family Experience fever (hyperthermia) with Anesthesia Last Oral Intake Last Oral intake: Last Oral Intake NPO since Meds taken in AM with sips of water? Meds patient instructed to take am of surgery PONV PONV - unified communications architect: PONV - unified communications architect Female Yes 09/22/25 14:10 HX of Motion Sickness Yes 09/22/25 14:10 HX of N/V After Surgery Yes 09/22/25 14:10 Non-Smoker Yes 09/22/25 14:10 Duration of Surgery greater No 09/22/25 14:10 than 60 minutes Number of Risk Factors 4 09/22/25 14:10 PONV Score Severe Risk 09/22/25 14:10 Height & Weight Height & Weight: Anesthesia: Height & Weight Height 5 ft 7 in 03/07/25 08:56 Respiratory Assessment Respiratory Assessment - unified communications architect: Respiratory Tract Infection Hx - unified communications architect Hx Respiratory Tract Infection No 09/22/25 14:10 STOP Sleep Apnea STOP Sleep Apnea - unified communications architect: STOP Sleep Apnea - unified communications architect Hx Hypertension Yes 09/22/25 14:10 Hx Sleep Apnea No 09/22/25 14:10 CPAP No 10/29/24 00:45 BIPAP No 10/29/24 00:45 Do you snore loudly (louder No 09/22/25 14:10 than talking or can be heard Do you often feel tired/ No 09/22/25 14:10 fatigued/ sleepy during daytime? Has anyone observed you stop No 09/22/25 14:10 breathing during sleep? STOP Results Negative 09/22/25 14:10 QUESTION #5 FULL TEXT : Do you snore loudly (louder than talking or can be heard through closed doors)? 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 Specify any problems Hx of Preganancy in last 3 No 09/22/25 14:10 Months Nurse Filling Out Transfusion JZOLLINGE 09/22/25 14:10 & Questions: Date: 09/22/25 09/22/25 14:10 Time: 14:12 09/22/25 14:10 Patient unable to answer at this time (ie. confused, unrespo /Reproduction History /Reproductive History - unified communications architect: /Reproductive Hx- unified communications architect Hx Now No 09/22/25 14:10 Gestational Age (in weeks): EDC: Hx Hx Para Hx Section SAB No 09/22/25 14:10 Does the father of the baby or his family experience fever w Father of the baby Malignant Hypertension history comment [facility] Medical History (Updated 09/22/25 @ 14:09 by Roz Vasquez) Wears contact lenses Wears glasses Arthritis Fatty liver Easy bruising Non-smoker Asthma Acute bronchitis Contact with or suspected exposure to other viral communicable disease Morbid obesity with BMI of 40.0-44.9, adult Chest pain COVID-19 Hx of non-ST elevation myocardial infarction (NSTEMI) Coronary artery disease Atherosclerotic heart disease of [place] coronary artery without angina pectoris (05/29/23) Dyslipidemia Obesity NSTEMI, initial episode of care Cellulitis of left forearm Acute bronchitis, unspecified Contact with or suspected exposure to other viral communicable disease Acute right otitis media Acute upper respiratory infection Class 3 obesity Seasonal allergies Anxiety GERD (gastroesophageal reflux disease) Hx of migraines History of PCOS Factor 5 Leiden mutation, heterozygous Hypercholesterolemia GERD (gastroesophageal reflux disease) Factor 5 Leiden mutation, heterozygous Depression Anxiety PCOS (polycystic ovarian syndrome) Migraines Home Medications ?Medication ?Instructions ?Recorded ?Last Taken ?Type calcium 600 mg (as 1 tab PO DAILY@0800 SUPPLEMENT 03/11/14 10/29/24 History carbonate)-vitamin D3 20 mcg (800 unit) tablet folic acid 400 mcg tablet 0.4 mg PO DAILY@0800 SUPPLEMENT 03/11/14 10/29/24 History multivitamin with folic acid 400 1 tab PO DAILY SUPPLEMENT 03/11/14 10/29/24 History mcg tablet lorazepam 1 mg tablet 1 tab PO Q8H PRN ANXIETY 04/12/18 Unknown History montelukast 4 mg chewable tablet 10 mg PO QHS ASTHMA 04/12/18 Unknown History magnesium oxide 500 mg capsule 500 mg PO QHS SUPPLEMENT 11/06/20 Unknown History vitamin B complex 1 cap PO DAILY SUPPLEMENT 11/06/20 10/29/24 History fluoxetine 40 mg capsule 40 mg PO DAILY FLUID 11/07/22 10/29/24 History topiramate 100 mg tablet 100 mg PO QHS migraines 06/13/23 Unknown History semaglutide (weight loss) 0.5 0.5 mg subcut QWEEK 03/21/24 Unknown History mg/0.5 mL subcutaneous pen injector (Denisa) aspirin 81 mg tablet,delayed 81 mg PO BREAKFAST HEART HEALTH 03/07/25 Unknown Rx release #90 tabs carvedilol 3.125 mg tablet 3.125 mg PO BID HEART #180 tabs 03/07/25 Unknown Rx evolocumab 140 mg/mL subcutaneous 140 mg subcut Q2W CHOLESTEROL #2 09/05/25 Unknown Rx pen injector (Gardenia Dubon) mL lutein 10 mg tablet 10 mg PO DAILY 09/05/25 Unknown History albuterol sulfate 90 mcg/actuation 2 puff inhalation Q4H PRN PRN 09/22/25 Unknown History aerosol inhaler wheezing Allergy/AdvReac Type Severity Reaction Status Date / Time [id number] Reductase Allergy Severe Other Verified 09/22/25 13:59 Inhibitor buspirone (From BuSpar) Allergy Chest Verified 09/22/25 13:59 tightness ciprofloxacin (From Cipro) Allergy Hives Verified 09/22/25 13:59 ciprofloxacin HCl (From Allergy Hives Verified 09/22/25 13:59 Cipro) dichloralphenazone (From Allergy Chest Verified 09/22/25 13:59 Midrin) tightness isometheptene mucate (From Allergy Chest Verified 09/22/25 13:59 Midrin) tightness meloxicam (From Mobic) Allergy Swelling Verified 09/22/25 13:59 nortriptyline (Nortriptyline) Allergy Chest Verified 09/22/25 13:59 tightness Family History Father Factor 5 Leiden mutation, heterozygous Brother Factor 5 Leiden mutation, heterozygous Daughter Factor 5 Leiden mutation, heterozygous Surgical History Stented coronary artery (05/29/23) Hx of fasciotomy H/O: hysterectomy H/O lithotripsy History of carpal tunnel surgery History of cholecystectomy delivery delivered History of [employer] Social History Smoking Status: Never smoker alcohol intake: current details: social substance use type: does not use caffeine: No what type of physical activity do you participate in: walking frequency: 1-2 times per week seatbelt use: always do you feel safe at home: Yes additional social history: [employer] 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 Normal sinus rhythm. Stress test pertinent findings: October 21, 2024. EF is 70%. No evidence of significant ischemia or infarction. Echo (EF%) pertinent findings: 05/27/2023. EF of 55%. Normal diastolic function. No regional wall motion abnormalities noted. Hypokinetic apex. Unable to accurately visualize the aortic valve. (See cath). Heart catheterization pertinent findings: May 29, 2023. 99% mid LAD. 60% proximal RCA. 50% proximal ramus. Successful TRINA to the mid LAD. Ostial D1 dilated. ASA indefinitely. Brilinta for the next 12 months. Consult pertinent findings: 09/05/2025. Ulises ENGLANDC. 1. Stented coronary artery-TRINA to the mid LAD placed in 2022. Most recent stress in October 26 showed no ischemia. No recent symptoms or events. Continue aspirin 81 mg, risk factor, carvedilol. Recommendation Anesthesia Recommendation Anesthesia recommendation: OPTIMIZED for anesthesia
[2025-09-30] VITALS (8 sets, daily range): BP systolic 95–129; BP diastolic 63–89; PULSE 61–80; RESP 16–18; TEMP 36.1–36.2; O2SAT 97–100; BMI 42.2
[2025-09-30] MEDS: Lactated Ringers 1,000 ML 15 ML IV (08:17)
--- NOTE | 2025-09-30 08:36 | PCM.PRE.AN2 ---
ASA Classification* ASA Classification ASA Classification: 3 Assessment & Plan Anesthesia* Anesthesia Assessment Anesthesia Assessment: Discussed sedation and/or anesthesia options, risks, benefits, and alternatives with patient/parents/legal guardian/POA. Questions invited. The patient/parents/legal guardian/POA seems to understand and agrees to proceed with anesthesia plan. Reviewed the physical assessment, medical history, allergy history and patient home medications list prior to surgery/procedure/anesthetic and documented any changes. Performed airway and anesthesia risk assessments. Anesthesia Type Anesthesia Type: MAC History Source History Obtained from:: Patient and Chart Anesthesia Focused Assessment* Temperature: 97.0 F Pulse Rate: 80 Blood Pressure: 129/89 Respiratory Rate: 18 Pulse Ox: 99 Oxygen Delivery Method: Room Air Airway Assessment Mouth opens: >3 cm Mallampati Score: II Teeth Condition: Caps/Crowns (Patient has a crown on left lower molar. It is tight.) Neck Range of motion (ROM): Limited ROM (Slight Decrease) Labs Anesthesia Preop lab: CBC WBC, (4.4-11.0) 7.7 K/mm3 09/05/25, 09: RBC, (4.2-5.4) 4.56 M/mm3 09/05/25, 09: Hgb, (12.0-15.0) 13.2 g/dL 09/05/25, : Hct, (37-47) 39.6 % 09/05/25, 09:01 Plt Count, (150-450) 282 K/mm3 09/05/25, 09:01 CHEMISTRY Potassium, (3.3-5.1) 4.1 mmol/L 09/05/25, 09: Sodium, (133-145) 137 mmol/L 09/05/25, 09:01 Magnesium, (1.6-2.6) 2.1 mg/dL 10/29/24, 06:00 Phosphorus, (2.5-4.9) 3.3 mg/dL 10/29/24, 06:00 BUN, (4-19) 12 mg/dL 09/05/25, 09:01 Creatinine, (0.70-1.20) 1.11 mg/dL 09/05/25, 09:01 Glucose, (70-99) 97 mg/dL 09/05/25, 09:01 POC Glucose, (70-110) 83 mg/dL 03/13/14, 06:23 TSH, (0.358-3.740) 2.150 uIU/mL 10/29/24, 06:00 COAG PT, (11.7-14.9) 13.3 SECONDS 05/27/23, 15:55 Pre-Assessment Diagnosis/Proposed Procedure Planned Operative Procedure(s): Colonoscopy - Open Access Anesthesia History 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 When Was Last Pacemaker Check QUESTION #4 FULL TEXT: You/Your Family Experience fever (hyperthermia) with Anesthesia Last Oral Intake Last Oral intake: Last Oral Intake NPO since 04:00 09/30/25 08:14 Meds taken in AM with sips of Yes 09/30/25 08:14 water? Meds patient instructed to CARVEDILOL 09/30/25 08:14 take am of surgery Any additional information?: Yes Meds taken in AM with sips of water?: Yes PONV PONV - land mobile radio technician: PONV - land mobile radio technician Female Yes 09/22/25 14:10 HX of Motion Sickness Yes 09/22/25 14:10 HX of N/V After Surgery Yes 09/22/25 14:10 Non-Smoker Yes 09/22/25 14:10 Duration of Surgery greater No 09/22/25 14:10 than 60 minutes Number of Risk Factors 4 09/22/25 14:10 PONV Score Severe Risk 09/22/25 14:10 Height & Weight Height & Weight: Anesthesia: Height & Weight Height 5 ft 8 in 09/30/25 08:14 Weight: 126 kg 09/30/25 08:14 Body Mass Index (BMI) 42.2 09/30/25 08:14 Respiratory Assessment Respiratory Assessment - land mobile radio technician: Respiratory Tract Infection Hx - land mobile radio technician Hx Respiratory Tract Infection No 09/22/25 14:10 STOP Sleep Apnea STOP Sleep Apnea - land mobile radio technician: STOP Sleep Apnea - land mobile radio technician Hx Hypertension Yes 09/22/25 14:10 Hx Sleep Apnea No 09/22/25 14:10 CPAP No 10/29/24 00:45 BIPAP No 10/29/24 00:45 Do you snore loudly (louder No 09/22/25 14:10 than talking or can be heard Do you often feel tired/ No 09/22/25 14:10 fatigued/ sleepy during daytime? Has anyone observed you stop No 09/22/25 14:10 breathing during sleep? STOP Results Negative 09/22/25 14:10 QUESTION #5 FULL TEXT : Do you snore loudly (louder than talking or can be heard through closed doors)? 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 Specify any problems Hx of Preganancy in last 3 No 09/22/25 14:10 Months Nurse Filling Out Transfusion JZOLLINGE 09/22/25 14:10 & Questions: Date: 09/22/25 09/22/25 14:10 Time: 14:12 09/22/25 14:10 Patient unable to answer at this time (ie. confused, unrespo /Reproduction History /Reproductive History - land mobile radio technician: /Reproductive Hx- land mobile radio technician Hx Now No 09/22/25 14:10 Gestational Age (in weeks): EDC: Hx Hx Para Hx Section SAB No 09/22/25 14:10 Does the father of the baby or his family experience fever w Father of the baby Malignant Hypertension history comment Active Medications Active Medications: Current Medications Generic Name Dose Route Start Last Admin Trade Name Freelliott PRN Reason Stop Dose Admin Lactated Ringer's 1,000 mls @ 15 mls/hr 09/30/25 08:15 09/30/25 08:17 IV 15 mls/hr .Q48H OPAL Administration PFSH Medical History Wears contact lenses Wears glasses Arthritis Fatty liver Easy bruising Non-smoker Asthma Acute bronchitis Contact with or suspected exposure to other viral communicable disease Morbid obesity with BMI of 40.0-44.9, adult Chest pain COVID-19 Hx of non-ST elevation myocardial infarction (NSTEMI) Coronary artery disease Atherosclerotic heart disease of [place] coronary artery without angina pectoris (05/29/23) Dyslipidemia Obesity NSTEMI, initial episode of care Cellulitis of left forearm Acute bronchitis, unspecified Contact with or suspected exposure to other viral communicable disease Acute right otitis media Acute upper respiratory infection Class 3 obesity Seasonal allergies Anxiety GERD (gastroesophageal reflux disease) Hx of migraines History of PCOS Factor 5 Leiden mutation, heterozygous Hypercholesterolemia GERD (gastroesophageal reflux disease) Factor 5 Leiden mutation, heterozygous Depression Anxiety PCOS (polycystic ovarian syndrome) Migraines Home Medications ?Medication ?Instructions ?Recorded ?Last Taken ?Type calcium 600 mg (as 1 tab PO DAILY@0800 SUPPLEMENT 03/11/14 10/29/24 History carbonate)-vitamin D3 20 mcg (800 unit) tablet folic acid 400 mcg tablet 0.4 mg PO DAILY@0800 SUPPLEMENT 03/11/14 10/29/24 History multivitamin with folic acid 400 1 tab PO DAILY SUPPLEMENT 03/11/14 10/29/24 History mcg tablet lorazepam 1 mg tablet 1 tab PO Q8H PRN ANXIETY 04/12/18 Unknown History montelukast 4 mg chewable tablet 10 mg PO QHS ASTHMA 04/12/18 Unknown History magnesium oxide 500 mg capsule 500 mg PO QHS SUPPLEMENT 11/06/20 Unknown History vitamin B complex 1 cap PO DAILY SUPPLEMENT 11/06/20 10/29/24 History fluoxetine 40 mg capsule 40 mg PO DAILY FLUID 11/07/22 10/29/24 History topiramate 100 mg tablet 100 mg PO QHS migraines 06/13/23 Unknown History semaglutide (weight loss) 0.5 0.5 mg subcut QWEEK 03/21/24 09/21/25 History mg/0.5 mL subcutaneous pen injector (Denisa) aspirin 81 mg tablet,delayed 81 mg PO [facility] 03/07/25 09/21/25 Rx release #90 tabs carvedilol 3.125 mg tablet 3.125 mg PO BID HEART #180 tabs 03/07/25 09/30/25 04:00 Rx evolocumab 140 mg/mL subcutaneous 140 mg subcut Q2W CHOLESTEROL #2 09/05/25 Unknown Rx pen injector (Repjanes SureCarlitosick) mL lutein 10 mg tablet 10 mg PO DAILY 09/05/25 Unknown History albuterol sulfate 90 mcg/actuation 2 puff inhalation Q4H PRN PRN 09/22/25 Unknown History aerosol inhaler wheezing Allergy/AdvReac Type Severity Reaction Status Date / Time [id number] Reductase Allergy Severe Other Verified 09/30/25 08:13 Inhibitor buspirone (From BuSpar) Allergy Chest Verified 09/30/25 08:13 tightness ciprofloxacin (From Cipro) Allergy Hives Verified 09/30/25 08:13 ciprofloxacin HCl (From Allergy Hives Verified 09/30/25 08:13 Cipro) dichloralphenazone (From Allergy Chest Verified 09/30/25 08:13 Midrin) tightness isometheptene mucate (From Allergy Chest Verified 09/30/25 08:13 Midrin) tightness meloxicam (From Mobic) Allergy Swelling Verified 09/30/25 08:13 nortriptyline (Nortriptyline) Allergy Chest Verified 09/30/25 08:13 tightness Family History Father Factor 5 Leiden mutation, heterozygous Brother Factor 5 Leiden mutation, heterozygous Daughter Factor 5 Leiden mutation, heterozygous Surgical History Stented coronary artery (05/29/23) Hx of fasciotomy H/O: hysterectomy H/O lithotripsy History of carpal tunnel surgery History of cholecystectomy delivery delivered History of [facility] Social History Smoking Status: Never smoker alcohol intake: current details: social substance use type: does not use caffeine: No what type of physical activity do you participate in: walking frequency: 1-2 times per week seatbelt use: always do you feel safe at home: Yes additional social history: [employer] 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
--- NOTE | 2025-09-30 09:35 | PCM.HP.STD ---
HPI - General General Date of Admission: 09/30/25 Date of Service: 09/30/25 Chief Complaint: Colonoscopy HPI Annabelle SKINNER, is a 45 F who presents for screening colonoscopy. Her last colonoscopy was about 6 or 7 years ago. Her father had neuroendocrine tumors of the small bowel. She denies any recent GI issues or complaints [facility] Medical History (Updated 09/30/25 @ 09:[address] Arnulfo Carmichael MD) Screening for colon cancer Wears contact lenses Wears glasses Arthritis Fatty liver Easy bruising Non-smoker Asthma Acute bronchitis Contact with or suspected exposure to other viral communicable disease Morbid obesity with BMI of 40.0-44.9, adult Chest pain COVID-19 Hx of non-ST elevation myocardial infarction (NSTEMI) Coronary artery disease Atherosclerotic heart disease of [place] coronary artery without angina pectoris (05/29/23) Dyslipidemia Obesity NSTEMI, initial episode of care Cellulitis of left forearm Acute bronchitis, unspecified Contact with or suspected exposure to other viral communicable disease Acute right otitis media Acute upper respiratory infection Class 3 obesity Seasonal allergies Anxiety GERD (gastroesophageal reflux disease) Hx of migraines History of PCOS Factor 5 Leiden mutation, heterozygous Hypercholesterolemia GERD (gastroesophageal reflux disease) Factor 5 Leiden mutation, heterozygous Depression Anxiety PCOS (polycystic ovarian syndrome) Migraines Home Medications ?Medication ?Instructions ?Recorded ?Last Taken ?Type calcium 600 mg (as 1 tab PO DAILY@0800 SUPPLEMENT 03/11/14 10/29/24 History carbonate)-vitamin D3 20 mcg (800 unit) tablet folic acid 400 mcg tablet 0.4 mg PO DAILY@0800 SUPPLEMENT 03/11/14 10/29/24 History multivitamin with folic acid 400 1 tab PO DAILY SUPPLEMENT 03/11/14 10/29/24 History mcg tablet lorazepam 1 mg tablet 1 tab PO Q8H PRN ANXIETY 04/12/18 Unknown History montelukast 4 mg chewable tablet 10 mg PO QHS ASTHMA 04/12/18 Unknown History magnesium oxide 500 mg capsule 500 mg PO QHS SUPPLEMENT 11/06/20 Unknown History vitamin B complex 1 cap PO DAILY SUPPLEMENT 11/06/20 10/29/24 History fluoxetine 40 mg capsule 40 mg PO DAILY FLUID 11/07/22 10/29/24 History topiramate 100 mg tablet 100 mg PO QHS migraines 06/13/23 Unknown History semaglutide (weight loss) 0.5 0.5 mg subcut QWEEK 03/21/24 09/21/25 History mg/0.5 mL subcutaneous pen injector (Denisa) aspirin 81 mg tablet,delayed 81 mg PO [facility] 03/07/25 09/21/25 Rx release #90 tabs carvedilol 3.125 mg tablet 3.125 mg PO BID HEART #180 tabs 03/07/25 09/30/25 04:00 Rx evolocumab 140 mg/mL subcutaneous 140 mg subcut Q2W CHOLESTEROL #2 09/05/25 Unknown Rx pen injector (Repatha SureClick) mL lutein 10 mg tablet 10 mg PO DAILY 09/05/25 Unknown History albuterol sulfate 90 mcg/actuation 2 puff inhalation Q4H PRN PRN 09/22/25 Unknown History aerosol inhaler wheezing Allergy/AdvReac Type Severity Reaction Status Date / Time [id number] Reductase Allergy Severe Other Verified 09/30/25 08:13 Inhibitor buspirone (From BuSpar) Allergy Chest Verified 09/30/25 08:13 tightness ciprofloxacin (From Cipro) Allergy Hives Verified 09/30/25 08:13 ciprofloxacin HCl (From Allergy Hives Verified 09/30/25 08:13 Cipro) dichloralphenazone (From Allergy Chest Verified 09/30/25 08:13 Midrin) tightness isometheptene mucate (From Allergy Chest Verified 09/30/25 08:13 Midrin) tightness meloxicam (From Mobic) Allergy Swelling Verified 09/30/25 08:13 nortriptyline (Nortriptyline) Allergy Chest Verified 09/30/25 08:13 tightness Family History Father Factor 5 Leiden mutation, heterozygous Brother Factor 5 Leiden mutation, heterozygous Daughter Factor 5 Leiden mutation, heterozygous Surgical History Stented coronary artery (05/29/23) Hx of fasciotomy H/O: hysterectomy H/O lithotripsy History of carpal tunnel surgery History of cholecystectomy delivery delivered History of [facility] Social History Smoking Status: Never smoker alcohol intake: current details: social substance use type: does not use caffeine: No what type of physical activity do you participate in: walking frequency: 1-2 times per week seatbelt use: always do you feel safe at home: Yes additional social history: [employer]- [employer] 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 What would you like to achieve or improve as a result of your hospital stay?: . Vital Signs Vital Signs Vital Signs: 09/30/25 08:14 09/30/25 08:14 09/30/25 08:14 Temperature 97.0 F L Temperature Source Temporal Pulse Rate 80 Respiratory Rate 18 Respiratory Pattern Normal Blood Pressure 129/89 H Blood Pressure Mean 102 Blood Pressure Source Monitor Blood Pressure Position Sitting Blood Pressure Location Left Forearm Baseline BP 129/89 Pulse Ox 99 Oxygen Delivery Method Room Air 09/30/25 08:44 Temperature 97.0 F L Temperature Source Pulse Rate 80 Respiratory Rate 18 Respiratory Pattern Blood Pressure 129/89 H Blood Pressure Mean Blood Pressure Source Blood Pressure Position Blood Pressure Location Baseline BP Pulse Ox 99 Oxygen Delivery Method Room Air Weight Weight: 277 lb 12.519 oz Body Mass Index (BMI) 42.2 Physical Exam Const alert, oriented x3 and no apparent distress Assessment & Plan Assessment/Plan (1) Screening for colon cancer: PLAN: Plan Colonoscopy planned for today.
--- NOTE | 2025-09-30 10:16 | OP.COLON_ITS ---
Patient Name: Ju Kaur Procedure Date: 09/30/2025 9:30 AM Date of : 1980 Age: 45 Procedure: Colonoscopy Indications: Screening for colorectal malignant neoplasm Providers: Arnulfo Carmichael MD Referring MD: Sujey Shaikh Medicines: Monitored Anesthesia Care Patient Profile: Refer to note in patient chart for documentation of history and physical. Last Colonoscopy: several years ago. Complications: No immediate complications. Estimated blood loss: None. Procedure: Pre-Anesthesia Assessment: - Prior to the procedure, a History and Physical was performed, and patient medications and allergies were reviewed. The patient's tolerance of previous anesthesia was also reviewed. The risks and benefits of the procedure and the sedation options and risks were discussed with the patient. All questions were answered, and informed consent was obtained. Prior Anticoagulants: The patient has taken no anticoagulant or antiplatelet agents. ASA Grade Assessment: II - A patient with mild systemic disease. After reviewing the risks and benefits, the patient was deemed in satisfactory condition to undergo the procedure. After I obtained informed consent, the scope was passed under direct vision. Throughout the procedure, the patient's blood pressure, pulse, and oxygen saturations were monitored continuously. The adult colonoscope was introduced through the anus and advanced to the cecum, identified by appendiceal orifice and ileocecal valve. The ileocecal valve, appendiceal orifice, and rectum were photographed. The entire colon was well visualized. The colonoscopy was performed without difficulty. The patient tolerated the procedure well. The quality of the bowel preparation was adequate. Moderate Sedation: See the other procedure note for documentation of moderate sedation with intraservice time. Scope In: 9:50:23 AM Scope Withdrawal Time 0 hours 10 minutes 33 seconds Scope Out: 10:10:30 AM Total Procedure Duration Time 0 hours 20 minutes 7 seconds Findings: The perianal and digital rectal examinations were normal. Internal hemorrhoids were found during endoscopy. The hemorrhoids were mild. The exam was otherwise without abnormality on direct and retroflexion views. Impression: - Internal hemorrhoids. - The examination was otherwise normal on direct and retroflexion views. - No specimens collected. Recommendation: - Discharge patient to home (ambulatory). - High fiber diet. - Discharge patient to home (ambulatory). - High fiber diet. - Repeat colonoscopy in 7-10 years for screening purposes. - Return to my office PRN. - Continue present medications. Procedure Code(s): --- Professional --- 29097, Colonoscopy, flexible; diagnostic, including collection of specimen(s) by brushing or washing, when performed (separate procedure) Diagnosis Code(s): --- Professional --- K64.8, Other hemorrhoids Z12.11, Encounter for screening for malignant neoplasm of colon CPT copyright 2021 [employer] [place] [employer]. All rights reserved. The codes documented in this report are preliminary and upon head porter review may be revised to meet current compliance requirements. Arnulfo Carmichael MD 09/30/2025 10:15:26 AM This report has been signed electronically. Number of Addenda: 0 Note Initiated On: 09/30/2025 9:30 AM
--- NOTE | 2025-09-30 10:16 | OP.PROVAT_ITS ---
09/30/2025 Sujey Shaikh [address] [place] [address] Re : Colonoscopy procedure for Ju Kaur Dear Dr. Shaikh This procedure was performed on Tuesday, September 30, 2025. My impressions and recommendations are as follows: Impressions : - Internal hemorrhoids. - The examination was otherwise normal on direct and retroflexion views. - No specimens collected. Recommendations : - Discharge patient to home (ambulatory). - High fiber diet. - Discharge patient to home (ambulatory). - High fiber diet. - Repeat colonoscopy in 7-10 years for screening purposes. - Return to my office PRN. - Continue present medications. My findings are described in the full procedure note, which is enclosed. If I can be of further assistance, please feel free to contact me at . Sincerely, Arnulfo Carmichael MD 09/30/2025 10:15:26 AM This report has been signed electronically.
--- NOTE | 2025-09-30 10:20 | PCM.POST.ANE ---
Anesthesia: Postop Eval I Current Vital Signs Temperature: 97.1 F Pulse Rate: 67 Blood Pressure: 99/67 Respiratory Rate: 16 Pulse Ox: 98 Oxygen Delivery Method: Room Air Assessment Airway patent: Yes Spontaneous unlabored respirations: Yes Mental status: Awake and Calm nausea: No Vomiting: No Anesthesia Complication: No Fluid Hydration Crystalloid volume administer (ml): 300 Total IV fluid infused: 300 Progress Note Anesthesia document: Postop Eval 1 completed: Yes
--- NOTE | 2025-09-30 12:33 | POSTOPAN2_ITS ---
Anesthesia Postop Eval I Sum Postop Eval Completion status Anesthesia document: Postop Eval 1 completed: Yes Anesthesia Postop Eval I Summary Anesthesia Postop Eval I Summary: Anesthesia Postop Eval I: Assessment Summary Airway patent Yes 09/30/25 10:21 [email or web address] Spontaneous unlabored Yes 09/30/25 10:21 [email or web address] [email or web address] respirations Mental status Awake,Calm 09/30/25 10:21 [email or web address] [email or web address] nausea No 09/30/25 10:21 BREAD [email or web address] Vomiting No 09/30/25 10:21 [email or web address] [email or web address] Anesthesia Postop Eval I: Fluid Summary Crystalloid volume administer 300 09/30/25 10:21 [email or web address] (ml) Colloids volume administered ( ml) Blood Product volume administered (ml) Total IV fluid infused 300 09/30/25 10:21 [email or web address] Anesthesia Postop Eval I: Summary Notes Anesthesia Complication No 09/30/25 10:21 [email or web address] Anesthesia Complication Comment: Post-operative progress note Anesthesia: Postop Eval II Evaluation Mental status: Awake and Calm Pain Level: 0 nausea: No Vomiting: No Complications Anesthesia Complication: No
--- NOTE | 2025-09-30 12:33 | PCM.POSTANE2 ---
Anesthesia Postop Eval I Sum Postop Eval Completion status Anesthesia document: Postop Eval 1 completed: Yes Anesthesia Postop Eval I Summary Anesthesia Postop Eval I Summary: Anesthesia Postop Eval I: Assessment Summary Airway patent Yes 09/30/25 10:21 INFORMATION SYSTEMS [email or web address] Spontaneous unlabored Yes 09/30/25 10:21 INFORMATION SYSTEMS MANAGER.[email or web address] respirations Mental status Awake,Calm 09/30/25 10:21 INFORMATION SYSTEMS [email or web address] nausea No 09/30/25 10:21 INFORMATION SYSTEMS MANAGER.[email or web address] Vomiting No 09/30/25 10:21 INFORMATION SYSTEMS MANAGER.[email or web address] Anesthesia Postop Eval I: Fluid Summary Crystalloid volume administer 300 09/30/25 10:21 INFORMATION SYSTEMS MANAGER.GDOTT (ml) Colloids volume administered ( ml) Blood Product volume administered (ml) Total IV fluid infused 300 09/30/25 10:21 INFORMATION SYSTEMS MANAGER.[email or web address] Anesthesia Postop Eval I: Summary Notes Anesthesia Complication No 09/30/25 10:21 INFORMATION SYSTEMS MANAGER.[email or web address] Anesthesia Complication Comment: Post-operative progress note Anesthesia: Postop Eval II Evaluation Mental status: Awake and Calm Pain Level: 0 nausea: No Vomiting: No Complications Anesthesia Complication: No
== END 2025-09-30 10:54 | disposition home or self-care (01) ==
LOC: EN 08:01 → AC 08:02
PROVIDERS: PCP Family Medicine; Referring Provider Family Medicine; Visit Provider Surgery
PROC: 0DJD8ZZ Inspection of Lower Intestinal Tract, Via Natural or Artificial Opening Endoscopic (ICD-10-PCS; CPT 45378; principal; 2025-09-30 09:10)
DX: Z12.11 Encounter for screening for malignant neoplasm of colon (principal); K64.8 Other hemorrhoids; E78.00 Pure hypercholesterolemia, unspecified; Z79.899 Other long term (current) drug therapy; I25.10 Atherosclerotic heart disease of native coronary artery without angina pectoris; Z79.82 Long term (current) use of aspirin; J45.909 Unspecified asthma, uncomplicated; K21.9 Gastro-esophageal reflux disease without esophagitis; Z79.85 Long-term (current) use of injectable non-insulin antidiabetic drugs
CPT/HCPCS: 45378; J2405